=== PATIENT | male | born 1945 | race Caucasian/White ===

== ENCOUNTER 2023-08-19 10:34 | Emergency (ER) | payer OTHER ==
[~2023-08-19] VITALS: Ht 170.2 cm; Wt 66.6 kg
[2023-08-19 12:11] VITALS: BP 138/75; PULSE 69; RESP 18; TEMP 98.1; O2SAT 99
[2023-08-19 14:01] LABS: Mean Corpuscular Volume 103.5 fL (80.0-100.0)
[2023-08-19 14:04] LABS: Hematocrit 43.4 % (41.0-53.0); Hemoglobin 14.6 g/dL (13.5-17.5); Mean Corpuscular Hgb Conc. 33.8 g/dL (32.0-36.0); Red Blood Cells 4.19 10^6/uL (4.5-5.90); Red Cell Distribution Width 13.7 % (11.8-14.3); White Blood Cell 8.4 10^3/uL (4.4-10.8)
[2023-08-19 14:15] LABS: Band Neutrophils % (manual) 0; Basophils % (manual) 0 (0.0-2.0); Blast Cells 0; Metamyelocytes % 0; Myelocytes % 0; Promyelocytes % 0; Reactive Lymphocytes 0
[2023-08-19 14:21] LABS: INR 0.99 (0.9-1.15); Prothrombin Time 10.4 sec (9.3-11.8)
[2023-08-19 14:37] LABS: Alanine Aminotransferase 26 U/L (7-40); Alkaline Phosphatase 118 U/L (46-116); Anion Gap 5 (5-15); BUN/Creatinine Ratio 8.7 (10.0-20.0); Blood Urea Nitrogen 9 mg/dL (9-23); Calcium 9.5 mg/dL (8.7-10.4); Carbon Dioxide 26 mmol/L (20-30); Chloride 107 mmol/L (98-107); Glucose 106 mg/dL (74-106); Potassium 3.9 mmol/L (3.5-5.1); Sodium 138 mmol/L (136-145)
[2023-08-19 14:38] LABS: Albumin 4.3 g/dL (3.2-4.8); Aspartate Aminotransferase 22 U/L (13-40); Bilirubin, Total 0.5 mg/dL (0.2-1.0); Total Protein 7.5 g/dL (5.7-8.2)
[2023-08-19 14:42] LABS: Eosinophils % (manual) 21 (0-7); Lymphocytes % (manual) 9 (10.0-50.0); Monocytes % (manual) 3 (0-12); Platelet Estimate Adequate
[2023-08-19] MEDS ORDERED: CLOB0.05 TOP (14:59)
[2023-08-19] MEDS ORDERED: METH4PAK PO (14:59)
[2023-08-19] MEDS ORDERED: HYDR25CA PO (14:59)
[2023-08-19] MEDS ORDERED: [UNRECOGNIZED DRUG - CODE] PO (14:59)
== END 2023-08-19 15:18 | disposition home or self-care (01) ==
LOC: ER 10:34
DX: L41.1 Pityriasis lichenoides chronica (principal); Z79.01 Long term (current) use of anticoagulants
CPT/HCPCS: 36415; 80053; 85007; 85027; 85610

== ENCOUNTER 2024-04-10 16:04 | Emergency (ER) | payer OTHER ==
[~2024-04-10] VITALS: Ht 167.6 cm; Wt 73.0 kg
[~2024-04-10 16:04] MED LIST: CLOB0.05 TOP; HYDR25CA PO; METH4PAK PO; [UNRECOGNIZED DRUG - CODE] PO
[2024-04-10] MEDS ORDERED: PER60TP TOP (16:30)
[2024-04-10 16:47] VITALS: BP 148/78; PULSE 88; RESP 17; TEMP 98.7; O2SAT 97
== END 2024-04-10 16:51 | disposition home or self-care (01) ==
LOC: ER 16:04
DX: B86 Scabies (principal); R21 Rash and other nonspecific skin eruption

== ENCOUNTER 2024-10-18 09:00 | Emergency (ER) | payer OTHER ==
[~2024-10-18 09:00] MED LIST changes: +PER60TP TOP
[2024-10-18 09:22] VITALS: BP 130/79; PULSE 114; RESP 20; TEMP 98.1; O2SAT 97
--- NOTE | 2024-10-18 09:30 | ED.PDOC ---
History of Present Illness(SKN HPI Comments A 79 YEAR OLD FEMALE PRESENTS TO THE ED WITH COMPLAINT OF RASH. PATIENT STATES HE HAS BEEN EXPERIENCING A GENERALIZED BODY RASH FOR THE PAST 1 WEEK. PATIENT NOTES THIS RASH HAS BEEN ITCHY. PATIENT DENIES FEVER, CHILLS, SHORTNESS OF BREATH, CHEST PAIN, ABDOMINAL PAIN, NAUSEA, VOMITING, HEADACHE, OR OTHER CO MPLAINTS. NO OTHER SYMPTOMS OR MODIFYING FACTORS AT THIS TIME. PATIENT IS ALERT, ORIENTED X 4, AND HAS STEADY GAIT. Chief Complaint: Rash Time Seen by MD: 09:15 Primary Care Provider: NONE History of Present Illness: Nurses Notes, Medications, Allergies Allergies: Coded Allergies: NO KNOWN ALLERGIES (Unverified , 08/19/23) Home Meds Active Scripts Triamcinolone Acetonide (Triamcinolone Acetonide) 0.025 % Cre, 1 APPLIC TOP BID, #80 GRAMS Prov:OMER TERRELL 10/18/24 Hydroxyzine Pamoate (Vistaril) 25 Mg Cap, 1 CAP PO TID, #30 CAP Prov:OMER TERRELL 10/18/24 Prednisone (Prednisone) 20 Mg Tab, 60 MG PO DAILY, #24 MG Prov:OMER TERRELL 10/18/24 Cephalexin Monohydrate (Cephalexin) 500 Mg Cap, 1 CAP PO QID, #40 CAP Prov:OMER TERRELL 10/18/24 Permethrin (Elimite) 5 % Cre, 1 APPLIC TOP ONCE, #60 GRAMS 1 Refill Apply medication as directed Prov:JOHANELLAMIRANDA Menchaca REMOVABLE PROSTHODONTIST 04/10/24 Hydroxyzine Pamoate (Vistaril) 25 Mg Cap, 1 CAP PO TID, #30 CAP Prov:OMER TERRELL 08/19/23 Erythromycin Base (Erythromycin Base) 500 Mg Tab, 1 TAB PO TID, #30 TAB Prov:OMER TERRELL 08/19/23 Methylprednisolone (Medrol Dosepak) 4 Mg Krzysztof, 4 MG PO UD, #21 TAB UAD Prov:OMER TERRELL 08/19/23 Clobetasol Propionate (Clobetasol Propionate) 0.05 % Oin, 1 APPLIC TOP BID, #60 GRAMS Prov:OMER TERRELL 08/19/23 Information Source: Patient Mode of Arrival: Ambulatory Severity: Moderate Timing: Days Duration: Since onset, Days Prehospital treatment: None Location: Generalized Mechanism: Spontaneous Onset Developed: Pruritus, Rash Occurence: Indoors Object: None Condition of Object: None Retained Foreign Body: No Wound Type: None Immunization Status of Animal: NA Tetanus: Unknown History of: None Associated Signs and Symptoms: Redness Past Medical History PAST MEDICAL HISTORY: Denies Surgical History: Denies all surgeries Family History Family History: Reviewed,noncontributory to illness Social History Smoker: Non-Smoker Alcohol: Denies ETOH Use Drugs: Denies Drug Use Lives In: Home Constitutional: denies: chills, diaphoresis, fatigue, fever, malaise, sweats, weakness, others EENTM: denies: blurred vision, double vision, ear bleeding, ear discharge, ear drainage, ear pain, ear ringing, eye pain, eye redness, hearing loss, mouth pain, mouth swelling, nasal discharge, nose bleeding, nose congestion, nose pain, photophobia, tearing, throat pain, throat swelling, voice changes, others Respiratory: denies: cough, hemoptysis, orthopnea, SOB at rest, shortness of breath, SOB with excertion, stridor, wheezing, others Cardiovascular: denies: chest pain, dizzy spells, diaphoresis, Dyspnea on exertion, edema, irregular heart beat, left arm pain, lightheadedness, palpitations, PND, syncope, others Gastrointestinal: denies: abdomen distended, abdominal pain, blood streaked bowels, constipated, diarrhea, dysphagia, difficulty swallowing, hematemesis, melena, nausea, poor appetite, poor fluid intake, rectal bleeding, rectal pain, vomiting, others Genitourinary: denies: burning, dysuria, flank pain, frequency, hematuria, incontinence, penile discharge, penile sore, pain, testicle pain, testicle swelling, urgency, others Neurological: denies: dizziness, fainting, headache, left sided numbness, left sided weakness, numbness, paresthesia, pre-existing deficit, right sided numbness, right sided weakness, seizure, speech problems, tingling, tremors, weakness, others Musculoskeletal: denies: back pain, gout, joint pain, joint swelling, muscle pain, muscle stiffness, neck pain, others Integumetry: reports: rash; denies: bruises, change in color, change in hair/nails, dryness, laceration, lesions, lumps, wounds, others Allergic/Immunocompromised: reports: Hives, Itching; denies: Difficulty Healing, Frequent Infections, others Hematologic/Lymphatic: denies: anemia, blood clots, easy bleeding, easy bruising, swollen glands, others Endocrine: denies: excessive hunger, excessive sweating, excessive thirst, excessive urination, flushing, intolerance to cold, intolerance to heat, unexplained weight gain, unexplained weight loss, others Psychiatric: denies: anxiety, bipolar disorder, depression, hopeless, panic disorder, schizophrenia, sleepless, suicidal, others All Other Systems: Reviewed and Negative Physical Exam General Appearance: No Apparent Distress, Normal HEENT: Normal ENT Inspection, PERRL/EOMI, Pharynx Normal, TMs Normal Neck: Full Range of Motion, Non-Tender, Normal, Normal Inspection Respiratory: Chest Non-Tender, Lungs Clear, No Accessory Muscle Use, No Respiratory Distress, Normal Breath Sounds Cardiovascular: No Edema, No JVD, No Murmur, No Gallop, Normal Peripheral Pulses, Regular Rate/Rhythm Breast Exam: Deferred Gastrointestinal: No Organomegaly, Non Tender, No Pulsatile Mass, Normal Bowel Sounds, Soft Genitalia: Deferred Pelvic: Deferred Rectal: Deferred Extremities: No calf tenderness, Normal capillary refill, Normal inspection, Normal range of motion, Non-tender, No pedal edema Musculoskeletal : Apperance: Normal Neurologic: Alert, records management manager II-XII nml as Tested, No Motor Deficits, Normal Affect, Normal Mood, No Sensory Deficits Cerebellar Function: Normal Reflexes: Normal Skin: Dry, Rash (ERYTHEMA SKIN RASH WITH HIVES ON BACK AND LOWER LEGS, ERYTHEMA VESICLE SKIN RASH ON BILATERAL UPPER EXTREMITY, NO TENDERNESS AND SWELLING. ), Warm Peripheral Pulses: 2+ carotid (R), 2+ carotid (L), 2+ Radial (R), 2+ Radial (L) Lymphatic: No Adenopathy Was a procedure done? Was a procedure done?: No Differential Diagnosis (INTG) Differential Diagnosis: N/A Differential Diagnosis: Atopic dermatitis, Contact Dermatitis, Impetigo, Intertrigo, Scabies, Tinea, Urticaria, Other (ALLERGIC REACTION) Differential Diagnosis: N/A Abscess: N/A Differential Diagnosis: N/A X-Ray, Labs, Meds, VS Vital Signs Date Time Temp Pulse Resp B/P (MAP) Pulse Ox O2 Delivery O2 Flow Rate FiO2 10/18/24 09:22 114 20 97 Room Air 10/18/24 09:22 98.1 114 20 130/79 (96) 97 98.1 10/18/24 09:14 113 20 130/79 (96) 97 Current Medications Medications (Trade) Dose Ordered Sig/Stefan Route Start Time Stop Time Status Last Admin Epinephrine HCl 0.3 mg ONCE ONCE SC 10/18/24 09:30 10/18/24 09:31 DC 10/18/24 09:34 Methylprednisolone Sodium Succinate (Solu Medrol) 125 mg ONCE ONCE IM 10/18/24 09:30 10/18/24 09:31 DC 10/18/24 09:34 X-Ray, Labs, Meds, VS Comment EXTERNAL MEDICAL RECORDS REVIEWED: [NONE] INDEPENDENT HISTORIANS: [NONE] SOCIAL DETERMINANTS OF HEALTH: [NONE] LABS ORDERED: NONE REVIEWED AND INTERPRETED RESULTS: NONE IMAGING ORDERED: NONE TREATMENTS ORDERED: EPINEPHRINE 0.3 MG IM, SOLU-MEDROL 125 MG IM PROCEDURES PERFORMED: NONE CRITICAL CARE TIME: NONE I HAVE DISCUSSED THE PATIENT WITH THE ATTENDING PHYSICIAN DR. BIRCH AND HE AGREES WITH THE PATIENT'S PLAN OF CARE AND DISPOSITION. BASED ON HISTORY OF PRESENT ILLNESS, AND PHYSICAL EXAM, PATIENT WILL BE DISCHARGED HOME. DISCUSSED PLAN FOR DISCHARGE HOME WITH RX [VISTARIL 50MG, PREDNISONE, AND KEFLEX]. MEDICATION WARNINGS GIVEN. SHARED DECISION MAKING: PATIENT INSTRUCTED TO FOLLOW UP WITH PRIMARY CARE PROVIDER IN 1-2 DAYS FOR RE-EVALUATION OF SYMPTOMS. PATIENT VERBALIZES UNDERSTANDING TO RETURN TO ED FOR NEW OR WORSENING SYMPTOMS OR IF FOLLOW UP WITH PCP CANNOT BE OBTAINED. PATIENT FEELS COMFORTABLE GOING HOME AT THIS TIME. ALL QUESTIONS ADDRESSED AT TIME OF DISCHARGE. Time of 1ST Reevaluation: 10:12 Reevaluation 1ST: Improved Patient Education/Counseling: Diagnosis, Treatment, Need For Follow Up Family Education/Counseling: Diagnosis, Treatment, Need For Follow Up Medical Screening: No EMC Exist At This Time Departure 1 Departure Time of Disposition: 10:12 Impression: Primary Impression: Allergic reaction Qualified Codes: T78.40XA - Allergy, unspecified, initial encounter Additional Impression: Allergic contact dermatitis Qualified Codes: L23.9 - Allergic contact dermatitis, unspecified cause Disposition: HOME / SELF CARE / HOMELESS Condition: Stable Additional Instructions: FOLLOW-UP WITH PCP IN 1 TO 2 DAYS FOR REFERRAL TO [facility]. TAKE MEDICATIONS PRESCRIBED. RETURN TO ED FOR ANY NEW OR WORSENING SYMPTOMS. e-Prescriptions Triamcinolone Acetonide (Triamcinolone Acetonide) 0.025 % Cre 1 APPLIC TOP BID, #80 GRAMS Prov: OMER TERRELL 10/18/24 Hydroxyzine Pamoate (Vistaril) 25 Mg Cap 1 CAP PO TID, #30 CAP Prov: OMER TERRELL 10/18/24 Prednisone (Prednisone) 20 Mg Tab 60 MG PO DAILY, #24 MG Prov: OMER TERRELL 10/18/24 Cephalexin Monohydrate (Cephalexin) 500 Mg Cap 1 CAP PO QID, #40 CAP Prov: OMER TERRELL 10/18/24 Discharged With: Self Critical Care Note Critical Care Time?: No Stability Stability form required: No I personally scribed for OMER TERRELL ([email or web address]) on 10/18/24 at 09:30. Electronically submitted by Calderon Nickerson ([email or web address]). OMER TERRELL Oct 18, 2024 09:30
[2024-10-18] MEDS: EPINEPHrine HCL 1 MG/1 ML AMP SC ONE (09:34)
[2024-10-18] MEDS: methylPREDNISolone SOD SUCC 125 MG/2 ML VL IM ONE (09:34)
[2024-10-18] MEDS ORDERED: TRIA0.02 TOP (10:12)
[2024-10-18] MEDS ORDERED: PRED20TA2 PO (10:12)
[2024-10-18] MEDS ORDERED: CEPH500C PO (10:12)
== END 2024-10-18 10:13 | disposition home or self-care (01) ==
LOC: ER 09:00
DX: L23.9 Allergic contact dermatitis, unspecified cause (principal); Z79.52 Long term (current) use of systemic steroids; Z79.899 Other long term (current) drug therapy
CPT/HCPCS: 96372; 99284; J0171; J2919

== ENCOUNTER 2025-01-01 13:51 | Inpatient (IN) | payer OTHER ==
[~2025-01-01] VITALS: Ht 170.2 cm; Wt 71.3 kg
[~2025-01-01 13:51] MED LIST changes: +CEPH500C PO; +PRED20TA2 PO; +TRIA0.02 TOP
--- NOTE | 2025-01-01 14:33 | ED.PDOC ---
History of Present Illness HPI Comments 79-year-old male with no reported PMHx presents with a chief complaint of SOB x onset 1.5 years. Patient states that he has had SOB for the past almost 2 years, but states that it is worsening over the last 2 days. Patient denies wearing oxygen at home, but states that he would like to leave with a lightweight oxygen machine. Patient is sating at 96% on room air. Chief Complaint: Shortness of Breath Time Seen by MD: 14:18 Primary Care Provider: NONE Reviewed Notes: Medications, Allergies Allergies: Coded Allergies: NO KNOWN ALLERGIES (Unverified , 08/19/23) Home Meds Active Scripts Triamcinolone Acetonide (Triamcinolone Acetonide) 0.025 % Cre, 1 APPLIC TOP BID, #80 GRAMS Prov:OMER TERRELL 10/18/24 Hydroxyzine Pamoate (Vistaril) 25 Mg Cap, 1 CAP PO TID, #30 CAP Prov:OMER TERRELL 10/18/24 Prednisone (Prednisone) 20 Mg Tab, 60 MG PO DAILY, #24 MG Prov:OMER TERRELL 10/18/24 Cephalexin Monohydrate (Cephalexin) 500 Mg Cap, 1 CAP PO QID, #40 CAP Prov:OMER TERRELL 10/18/24 Permethrin (Elimite) 5 % Cre, 1 APPLIC TOP ONCE, #60 GRAMS 1 Refill Apply medication as directed Prov:SUKHDEV PRADO MARKETING PRODUCTION SPECIALIST 04/10/24 Hydroxyzine Pamoate (Vistaril) 25 Mg Cap, 1 CAP PO TID, #30 CAP Prov:OMER TERRELL 08/19/23 Erythromycin Base (Erythromycin Base) 500 Mg Tab, 1 TAB PO TID, #30 TAB Prov:OMER TERRELL 08/19/23 Methylprednisolone (Medrol Dosepak) 4 Mg Krzysztof, 4 MG PO UD, #21 TAB UAD Prov:OMER TERRELL 08/19/23 Clobetasol Propionate (Clobetasol Propionate) 0.05 % Oin, 1 APPLIC TOP BID, #60 GRAMS Prov:OMER TERRELL 08/19/23 Information Source: Patient Mode of Arrival: Wheelchair Severity: Moderate Timing: Months Duration: Intermittent Prehospital treatment: None Past Medical History PAST MEDICAL HISTORY: Denies Surgical History: Denies all surgeries Family History Family History: Reviewed,noncontributory to illness Social History Smoker: Non-Smoker Alcohol: Denies ETOH Use Drugs: Denies Drug Use Lives In: Home Constitutional: denies: chills, diaphoresis, fatigue, fever, malaise, sweats, weakness, others EENTM: denies: blurred vision, double vision, ear bleeding, ear discharge, ear drainage, ear pain, ear ringing, eye pain, eye redness, hearing loss, mouth pain, mouth swelling, nasal discharge, nose bleeding, nose congestion, nose pain, photophobia, tearing, throat pain, throat swelling, voice changes, others Respiratory: reports: shortness of breath; denies: cough, hemoptysis, orthopnea, SOB at rest, SOB with excertion, stridor, wheezing, others Cardiovascular: denies: chest pain, dizzy spells, diaphoresis, Dyspnea on exertion, edema, irregular heart beat, left arm pain, lightheadedness, palpi tations, PND, syncope, others Gastrointestinal: denies: abdomen distended, abdominal pain, blood streaked bowels, constipated, diarrhea, dysphagia, difficulty swallowing, hematemesis, melena, nausea, poor appetite, poor fluid intake, rectal bleeding, rectal pain, vomiting, others Genitourinary: denies: burning, dysuria, flank pain, frequency, hematuria, incontinence, penile discharge, penile sore, pain, testicle pain, testicle swelling, urgency, others Neurological: denies: dizziness, fainting, headache, left sided numbness, left sided weakness, numbness, paresthesia, pre-existing deficit, right sided numbness, right sided weakness, seizure, speech problems, tingling, tremors, weakness, others Musculoskeletal: denies: back pain, gout, joint pain, joint swelling, muscle pain, muscle stiffness, neck pain, others Integumetry: denies: bruises, change in color, change in hair/nails, dryness, laceration, lesions, lumps, rash, wounds, others Allergic/Immunocompromised: denies: Difficulty Healing, Frequent Infections, Hives, Itching, others Hematologic/Lymphatic: denies: anemia, blood clots, easy bleeding, easy bruis ing, swollen glands, others Endocrine: denies: excessive hunger, excessive sweating, excessive thirst, exc essive urination, flushing, intolerance to cold, intolerance to heat, unexplained weight gain, unexplained weight loss, others Psychiatric: denies: anxiety, bipolar disorder, depression, hopeless, panic disorder, schizophrenia, sleepless, suicidal, others All Other Systems: Reviewed and Negative Physical Exam General Appearance: No Apparent Distress, Normal HEENT: Normal ENT Inspection, Pharynx Normal, TMs Normal Neck: Full Range of Motion, Non-Tender, Normal, Normal Inspection Respiratory: Chest Non-Tender, Lungs Clear, No Accessory Muscle Use, No Respiratory Distress, Normal Breath Sounds Cardiovascular: No Edema, No JVD, No Murmur, No Gallop, Normal Peripheral Pulses, Regular Rate/Rhythm Breast Exam: Deferred Gastrointestinal: No Organomegaly, Non Tender, No Pulsatile Mass, Normal Bowel Sounds, Soft Genitalia: Deferred Pelvic: Deferred Rectal: Deferred Extremities: No calf tenderness, Normal capillary refill, Normal inspection, Normal range of motion, Non-tender, No pedal edema Musculoskeletal : Apperance: Normal Neurologic: Alert, favor maker II-XII nml as Tested, No Motor Deficits, Normal Affect, Normal Mood, No Sensory Deficits Cerebellar Function: Normal Reflexes: Normal Skin: Dry, Normal Color, Warm Lymphatic: No Adenopathy Was a procedure done? Was a procedure done?: No Differential Dx Considerations may include: Acute chest pain, CHF, COPD, viral syndrome, pneumonia, electrolyte abdomen X-Ray, Labs, Meds, VS Vital Signs Date Time Temp Pulse Resp B/P (MAP) Pulse Ox O2 Delivery O2 Flow Rate FiO2 01/01/25 15:29 98.5 61 20 144/82 (102) 95 98.5 01/01/25 15:29 61 20 95 Room Air* 0 21 01/01/25 14:14 75 01/01/25 14:14 97.7 60 16 116/59 (78) 96 01/01/25 14:13 16 Room Air* 0 21 Lab Test 01/01/25 15:35 01/01/25 14:20 Range/Units Troponin I High Sensitivity 9 9 </=54 ng/L White Blood Count 8.2 4.4-10.8 10^3/uL Red Blood Count 3.58 L 4.5-5.90 10^6/uL Hemoglobin 13.2 L 13.5-17.5 g/dL Hematocrit 37.7 L 41.0-53.0 % Mean Corpuscular Volume 105.3 H 80.0-100.0 fL Mean Corpuscular Hemoglobin 36.9 H 28.0-32.0 pg Mean Corpuscular Hemoglobin Concent 35.0 32.0-36.0 g/dL Red Cell Distribution Width 17.3 H 11.8-14.3 % Platelet Count 207 140-450 10^3/uL Mean Platelet Volume 8.2 6.9-10.8 fL Neutrophils (%) (Auto) 72.7 37.0-80.0 % Lymphocytes (%) (Auto) 12.4 10.0-50.0 % Monocytes (%) (Auto) 10.8 0.0-12.0 % Eosinophils (%) (Auto) 3.6 0.0-7.0 % Basophils (%) (Auto) 0.5 0.0-2.0 % Neutrophils # (Auto) 5.9 1.6-8.6 10 ^3/uL Lymphocytes # (Auto) 1.0 0.4-5.4 10 ^3/uL Monocytes # (Auto) 0.9 0-1.3 10 ^3/uL Eosinophils # (Auto) 0.3 0-0.8 10 ^3/uL Basophils # (Auto) 0 0-0.2 10 ^3/uL Nucleated Red Blood Cells 0.0 % Sodium Level 136 136-145 mmol/L Potassium Level 2.6 L 3.5-5.1 mmol/L Chloride Level 95 L 98-107 mmol/L Carbon Dioxide Level 31 20-31 mmol/L Anion Gap 10 5-15 Blood Urea Nitrogen 26 H 9-23 mg/dL Creatinine 1.59 H 0.700-1.30 mg/dL Glomerular Filtration Rate Calc 44 >90 mL/min BUN/Creatinine Ratio 16.4 10.0-20.0 Serum Glucose 98 74-106 mg/dL Calcium Level 8.6 L 8.7-10.4 mg/dL B-Type Natriuretic Peptide 116.57 0-100 pg/mL Time of 1ST Reevaluation: 14:48 Reevaluation 1ST: Unchanged Patient Education/Counseling: Diagnosis, Treatment, Prognosis Family Education/Counseling: No Family Present Departure 1 Departure Time of Disposition: 16:33 (Patient presented with shortness of breath that was concerning for possible STEMI, ACS, PE, Pneumonia, Muscle Strain, COPD, heart failure, Dissection. Data: 1. I ordered and reviewed the result of at least 3 labs including a CBC, BMP, and Troponin. 2. I independently interpreted the fo llowing tests: EKG which shows sinus arrhythmia and Chest X-ray which shows benign chest.Risk:This patient has a high risk of morbidity due to further diagnostic testing or treatment and may suffer from an acute cardiac or respiratory disorder. Workup reveals _ concern for ACS versus COPD versus heart failure and patient should be admitted for further workup and possible expert consultation. ) Impression: Primary Impression: Shortness of breath Additional Impression: Generalized weakness Disposition: ADMITTED INPATIENT Admit to: Med Surg Condition: Serious Critical Care Note Critical Care Time?: No Stability Stability form required: No I personally scribed for AYANA MOTA MD ([email or web address]) on 01/01/25 at 14:32. Electronically submitted by Cy Redman ([email or web address]). AYANA MOTA MD Jan 01, 2025 14:32
[2025-01-01 14:48] LABS: Basophils # (auto) 0 10 ^3/uL (0-0.2); Eosinophils # (auto) 0.3 10 ^3/uL (0-0.8); Hemoglobin 13.2 g/dL (13.5-17.5); Neutrophils % (auto) 72.7 % (37.0-80.0)
--- NOTE | 2025-01-01 14:48 | DVH ---
CHEST RADIOGRAPH Indication: sob Technique: Single frontal view of the chest was obtained COMPARISON: None FINDINGS: Lines and Tubes: None Lungs: Clear. Pleura: No effusion. No pneumothorax. Cardiomediastinal contours: Unremarkable Bones: Chronic appearing bilateral rib fractures. IMPRESSION: No acute disease.
[2025-01-01 14:50] LABS: Basophils % (auto) 0.5 % (0.0-2.0); Eosinophils % (auto) 3.6 % (0.0-7.0); Hematocrit 37.7 % (41.0-53.0); Lymphocytes % (auto) 12.4 % (10.0-50.0); Mean Corpuscular Hemoglobin 36.9 pg (28.0-32.0); Mean Corpuscular Volume 105.3 fL (80.0-100.0); Monocytes # (auto) 0.9 10 ^3/uL (0-1.3); Monocytes % (auto) 10.8 % (0.0-12.0); Neutrophils # (auto) 5.9 10 ^3/uL (1.6-8.6); Platelet Count (auto) 207 10^3/uL (140-450); Red Blood Cells 3.58 10^6/uL (4.5-5.90); Red Cell Distribution Width 17.3 % (11.8-14.3); White Blood Cell 8.2 10^3/uL (4.4-10.8)
[2025-01-01 15:00] LABS: Anion Gap 10 (5-15); Carbon Dioxide 31 mmol/L (20-31)
[2025-01-01 15:02] LABS: Calcium 8.6 mg/dL (8.7-10.4); Chloride 95 mmol/L (98-107); Potassium 2.6 mmol/L (3.5-5.1); Sodium 136 mmol/L (136-145)
[2025-01-01 15:05] LABS: Glucose 98 mg/dL (74-106)
[2025-01-01 15:06] LABS: BUN/Creatinine Ratio 16.4 (10.0-20.0)
[2025-01-01 15:07] LABS: Blood Urea Nitrogen 26 mg/dL (9-23)
[2025-01-01 15:29] VITALS: PULSE 61; RESP 20; O2SAT 95
[2025-01-01] MEDS ORDERED: ONDANSETRON HCL 4 MG/2 ML VIAL IV PRN (17:45)
[2025-01-01] MEDS ORDERED: DOCUSATE SOD 100 MG CAP PO PRN (17:45)
[2025-01-01] MEDS ORDERED: ACETAMINOPHEN 325 MG TAB PO PRN (17:45)
[2025-01-01] MEDS ORDERED: HYDROcodone-ACET 5/325MG TAB PO PRN (17:45)
[2025-01-01 18:02] VITALS: O2SAT 96
[2025-01-01] MEDS: POTASSIUM CHL 20 Meq TABLET PO ONE ×2 (18:05→21:09)
[2025-01-01] MEDS ORDERED: MORPHINE SULFATE INJ 2 MG/ml SYRG IV PRN (19:00)
[2025-01-01] MEDS ORDERED: NITROGLYCERIN 0.4 MG SL TAB SL PRN (19:00)
--- NOTE | 2025-01-01 19:19 | DVHHP2 ---
History of Present Illness Reason for Visit: Shortness of breath History of Present Illness The patient is a 79-year-old male who denies past medical history presented to [facility] ED with complaint of shortness of breaths for the past 1.5 years. Patient reports symptoms intermittently progressively get worse with generalized weakness, increased work of breathing for the past 2 days, getting worse today that prompted this visit. Patient was seen and evaluated in the ED, laboratory data shows WBC 8.2, platelets 207, sodium 136, potassium 2.6, BUN 26, creatinine 1.59, GFR 44, glucose 98, calcium 8.6, troponin 9, BNP 116.57. Chest x-ray show no acute disease. Patient was given breathing treatment, potassium 40 mEq p.o. x1, please see medication orders section in the computer. On my assessment, patient denied chest pain, no headache, no dizziness, no diaphoresis, no abdominal pain, no diarrhea, no nausea, no vomiting, no fever, no chills. Patient was admitted for further evaluation and medical management. Past Medical History Denies past medical history Past Surgical History Denies all surgeries Family History Reviewed, noncontributory to the management of this case. Past Social History The patient lives at home, denies smoking, alcohol or illicit drugs abuse. Review of Systems Constitutional: No: Fever, Chills, Sweats, Weakness, Malaise, Other Eyes: No: Pain, Vision change, Conjunctivae inflammation, Eyelid inflammation, Other, Redness ENT: No: Ear pain, Ear discharge, Nose pain, Nose discharge, Nose congestion, Mouth pain, Mouth swelling, Throat pain, Throat swelling, Other Respiratory: Shortness of breath; No: Cough, Dry, SOB with excertion, Wheezing, Hemoptysis, Pleuritic Pain, Sputum, Wheezing, Other Cardiovascular: No: Chest Pain, Palpitations, Orthopnea, Paroxysmal Noc. Dyspnea, Edema, Lt Headedness, Other Gastrointestinal: No: Nausea, Vomiting, Abdominal Pain, Diarrhea, Constipation, Melena, Hematochezia, Other Genitourinary: No Dysuria, No Frequency, No Incontinence, No Hematuria, No Retention, No Other Musculoskeletal: No: other, neck pain, shoulder pain, arm pain, back pain, hand pain, leg pain, foot pain Skin: No: Rash, Lesions, Jaundice, Bruising, Other Neurological: No: Weakness, Numbness, Incoordination, Change in speech, Confusion, Seizures, Other Allergies: Coded Allergies: NO KNOWN ALLERGIES (Unverified , 08/19/23) Medications Current Medications Medications Dose Ordered Sig/Stefan Route Start Time Stop Time Status Last Admin Dose Admin Albuterol 2.5 mg Q4HPRN PRN NEB 01/01/25 17:45 Ipratropium [place] 0.5 mg Q4HPRN PRN NEB 01/01/25 17:45 Sodium Chloride 10 ml Q8HR IV 01/01/25 22:00 Acetaminophen/ Hydrocodone Bitart 1 tab Q4HP PRN PO 01/01/25 17:45 Ondansetron HCl 4 mg Q4HP PRN IV 01/01/25 17:45 Docusate Sodium 100 mg BIDPRN PRN PO 01/01/25 17:45 Acetaminophen 650 mg Q6HP PRN PO 01/01/25 17:45 Exam Vital Signs Vital Signs Date Time Temp Pulse Resp B/P (MAP) Pulse Ox O2 Delivery O2 Flow Rate FiO2 01/01/25 18:02 96 Room Air* 0 21 01/01/25 17:31 70 18 01/01/25 17:31 97.7 136/80 (98) 97.7 General Appearance: Alert, Oriented X3, Cooperative, No acute distress HEENT: Atraumatic, PERRLA, EOMI, Mucous membr. moist/pink Respiratory: Clear to auscultation, Normal air movement Cardiovascular: Regular rate, Normal S1, Normal S2, No murmurs Abdominal: Normal bowel sounds, Soft, No tenderness, No hepatospenomegaly, No masses Extremities: No clubbing, No cyanosis, No edema, Normal pulses, No tenderness/swelling Skin: No rashes, No breakdown, No significant lesion Neuro: Normal speech, Normal tone, Sensation intact, Cranial nerves 3-12 NL, Reflexes 2+ Psych/Mental Status: Mental status NL, Mood NL Labs/Xrays Labs Test 01/01/25 17:47 01/01/25 14:20 Range/Units Troponin I High Sensitivity 9 </=54 ng/L White Blood Count 8.2 4.4-10.8 10^3/uL Red Blood Count 3.58 L 4.5-5.90 10^6/uL Hemoglobin 13.2 L 13.5-17.5 g/dL Hematocrit 37.7 L 41.0-53.0 % Mean Corpuscular Volume 105.3 H 80.0-100.0 fL Mean Corpuscular Hemoglobin 36.9 H 28.0-32.0 pg Mean Corpuscular Hemoglobin Concent 35.0 32.0-36.0 g/dL Red Cell Distribution Width 17.3 H 11.8-14.3 % Platelet Count 207 140-450 10^3/uL Mean Platelet Volume 8.2 6.9-10.8 fL Neutrophils (%) (Auto) 72.7 37.0-80.0 % Lymphocytes (%) (Auto) 12.4 10.0-50.0 % Monocytes (%) (Auto) 10.8 0.0-12.0 % Eosinophils (%) (Auto) 3.6 0.0-7.0 % Basophils (%) (Auto) 0.5 0.0-2.0 % Neutrophils # (Auto) 5.9 1.6-8.6 10 ^3/uL Lymphocytes # (Auto) 1.0 0.4-5.4 10 ^3/uL Monocytes # (Auto) 0.9 0-1.3 10 ^3/uL Eosinophils # (Auto) 0.3 0-0.8 10 ^3/uL Basophils # (Auto) 0 0-0.2 10 ^3/uL Nucleated Red Blood Cells 0.0 % Sodium Level 136 136-145 mmol/L Potassium Level 2.6 L 3.5-5.1 mmol/L Chloride Level 95 L 98-107 mmol/L Carbon Dioxide Level 31 20-31 mmol/L Anion Gap 10 5-15 Blood Urea Nitrogen 26 H 9-23 mg/dL Creatinine 1.59 H 0.700-1.30 mg/dL Glomerular Filtration Rate Calc 44 >90 mL/min BUN/Creatinine Ratio 16.4 10.0-20.0 Serum Glucose 98 74-106 mg/dL Calcium Level 8.6 L 8.7-10.4 mg/dL B-Type Natriuretic Peptide 116.57 0-100 pg/mL PATIENT: HARMAN RAMON ACCT: [id number] UNIT: [id number] : 1945 LOC: ER ROOM / BED: / AGE / SEX: 79 / M ADM STATUS: REG ER SERVICE 1413 ORDERING PHYSICIAN: AYANA MOTA MD PROCEDURE(s): CXRP - CHEST PORTABLE REASON: sob ORDER NUMBER(s): [id number], ACCESSION NUMBER(s): [id number] CHEST RADIOGRAPH Indication: sob Technique: Single frontal view of the chest was obtained COMPARISON: None FINDINGS: Lines and Tubes: None Lungs: Clear. Pleura: No effusion. No pneumothorax. Cardiomediastinal contours: Unremarkable Bones: Chronic appearing bilateral rib fractures. IMPRESSION: No acute disease. Assessment/Plan Assessment/Plan Shortness of breath Hypokalemia Acute renal injury Generalized weakness Plan 1. Admit to telemetry unit 2. Breathing treatment 3. Pain control management 4. Management of fluids and electrolytes 5. Consultation for hospitalist 6. Diagnostic tests chest x-ray 7. DVT prophylaxis-on SCDs 8. Repeat labs CBC, CMP in a.m. 9. Continue with current medical management 10. Treatment plan discussed with patient and RN. Patient verbalized understanding. Plan discussed with: Patient, Other (RN) My Orders Orders - IGNACIO HUMPHREY DNP Procedure Category Date Status Time *Dr. Zarate Group CONS 01/01/25 Transmitted -[place] 17:35 Albuterol Medneb PHA 01/01/25 In Process (Ventolin Medneb) 17:45 Ipratropium Medneb PHA 01/01/25 In Process (Atrovent Medneb) 17:45 Allergies CHAR 01/01/25 In Process 17:35 Code Status CODE 01/01/25 Transmitted 17:35 Sodium Chloride Lock PHA 01/01/25 In Process (Saline Lock Ns) 22:00 Oxygen Per Hour RT 01/01/25 Transmitted 17:35 Hydrocodone-Acet PHA 01/01/25 In Process 5/325mg Tab ([place] 17:45 Ondansetron Hcl PHA 01/01/25 In Process (Zofran) 17:45 Docusate Sodium PHA 01/01/25 In Process Capsule (Colace 17:45 Complete Blood Count LAB 01/02/25 Verified 04:00 Comprehensive LAB 01/02/25 Verified Metabolic Panel 04:00 Cardiac DIET 01/01/25 Transmitted Diet-2gna,Lofat,Lochol Dinner Condition: Serious CHAR 01/01/25 In Process 17:35 Acetaminophen Tablet PHA 01/01/25 In Process (Tylenol Tablet) 17:45 Bedrest With Bathroom CHAR 01/01/25 In Process Privileg 17:35 Sequential [facility] 01/01/25 In Process Compression Device Admit ADMIT 01/01/25 Verified 19:00 Nitroglycerin [facility] 01/01/25 Verified Sublingual (Ntrostat 19:00 Morphine Sulfate [facility] 01/01/25 Verified Injection 19:00 Notify Md Of Changes [facility] 01/01/25 Verified From Base 19:00 Traveling Construction Superintendent For [facility] 01/01/25 Verified 24 Hours 19:00 Emergency Dysrhythmia [facility] 01/01/25 Verified Protocol 19:00 Rhythm Strips Once [facility] 01/01/25 Verified Every Shift 19:00 Oxygen By Nasal RT 01/01/25 Verified Cannula 19:00 Problem List: (1) Shortness of breath (2) Hypokalemia (3) Acute renal injury (4) Generalized weakness Date of Service: Jan 01, 2025 Billing Provider: IGNACIO HUMPHREY DNP Common Visit Codes: [id number] INP/OBS CARE (HIGH) IGNACIO HUMPHREY DNP Jan 01, 2025 19:19
[2025-01-01 19:51] VITALS: BP 136/80; PULSE 62; RESP 16; TEMP 97.7; O2SAT 96
[2025-01-01] MEDS: SODIUM CHLOR 0.9% PF (SALINE LOCK) 10ML VIAL/SYR IV SCH (22:00)
[2025-01-02] VITALS (14 sets, daily range): BP systolic 110–126; BP diastolic 61–81; PULSE 71–82; RESP 16–20; TEMP 97.9–98.7; O2SAT 92–98
[2025-01-02] MEDS: TEMAZEPAM 15 MG CAP PO ONE ×2 (01:01→23:33)
[2025-01-02 07:30] LABS: Basophils # (auto) 0 10 ^3/uL (0-0.2); Basophils % (auto) 0.7 % (0.0-2.0); Eosinophils # (auto) 0.4 10 ^3/uL (0-0.8); Hematocrit 35.5 % (41.0-53.0); Hemoglobin 12.2 g/dL (13.5-17.5); Mean Corpuscular Hemoglobin 36.9 pg (28.0-32.0); Mean Corpuscular Hgb Conc. 34.3 g/dL (32.0-36.0); Mean Corpuscular Volume 107.5 fL (80.0-100.0); Monocytes # (auto) 0.7 10 ^3/uL (0-1.3); Monocytes % (auto) 12.9 % (0.0-12.0); Neutrophils # (auto) 3.6 10 ^3/uL (1.6-8.6); Neutrophils % (auto) 62.4 % (37.0-80.0); Nucleated Red Blood Cells % 0.1 %; Platelet Count (auto) 194 10^3/uL (140-450); Red Blood Cells 3.31 10^6/uL (4.5-5.90); Red Cell Distribution Width 17.6 % (11.8-14.3); White Blood Cell 5.8 10^3/uL (4.4-10.8)
[2025-01-02 07:46] LABS: Albumin 3.6 g/dL (3.2-4.8); Alkaline Phosphatase 84 U/L (46-116); Anion Gap 10 (5-15); BUN/Creatinine Ratio 16.6 (10.0-20.0); Carbon Dioxide 29 mmol/L (20-31)
[2025-01-02 07:52] LABS: Chloride 96 mmol/L (98-107); Sodium 135 mmol/L (136-145)
[2025-01-02 07:53] LABS: Alanine Aminotransferase 54 U/L (7-40); Aspartate Aminotransferase 70 U/L (13-40); Blood Urea Nitrogen 24 mg/dL (9-23); Calcium 8.1 mg/dL (8.7-10.4); Glucose 172 mg/dL (74-106); Total Protein 5.6 g/dL (5.7-8.2)
[2025-01-02] MEDS: IPRATROPIUM BROM 0.5 MG/2.5ML INH SOL NEB PRN (09:12)
[2025-01-02] MEDS: ALBUTEROL SULF 2.5 MG/0.5ML(0.5%) NEB SOLN NEB PRN (09:12)
[2025-01-02 10:24] LABS: Base Excess 4.6 mmol/L (-2.0-3.0)
[2025-01-02 10:37] LABS: COVID19 ANTIGEN SOFIA FIA NEGATIVE (NEGATIVE); Rapid Influenza A Negative (Negative); Rapid Influenza B Negative (Negative)
[2025-01-02] MEDS: MAGNESIUM SULFATE 1GM/100ML 100 ML IV SCH (10:57)
[2025-01-02] MEDS: POTASSIUM CHL 20 Meq TABLET PO ONE ×2 (11:08→16:51)
--- NOTE | 2025-01-02 11:20 | DVHINCON2 ---
Date of service: Jan 02, 2025 Referring Physician Johnson Winter NP Reason for Consultation Acute kidney injury History of Present Illness Patient is 79-year-old male with past medical history significant for COPD is admitted for worsening shortness of breath. On admission patient found to have elevated BUN creatinine with multiple electrolyte abnormalities nephrology is consulted for acute kidney injury Past Medical History COPD Past Surgical History Patient denies Allergies: Coded Allergies: NO KNOWN ALLERGIES (Unverified , 08/19/23) Home Meds Active Scripts Hydroxyzine Pamoate (Vistaril) 25 Mg Cap, 1 CAP PO TID, #30 CAP Prov:OMER TERRELL 10/18/24 Prednisone (Prednisone) 20 Mg Tab, 60 MG PO DAILY, #24 MG Prov:OMER TERRELL 10/18/24 Hydroxyzine Pamoate (Vistaril) 25 Mg Cap, 1 CAP PO TID, #30 CAP Prov:OMER TERRELL 08/19/23 Methylprednisolone (Medrol Dosepak) 4 Mg Krzysztof, 4 MG PO UD, #21 TAB UAD Prov:OMER TERRELL 08/19/23 Current Medications Current Medications Medications (Trade) Dose Ordered Sig/Stefan Route PRN Reason Start Time Stop Time Status Last Admin Albuterol (Ventolin Medneb) 2.5 mg Q4HPRN PRN NEB SHORTNESS OF BREATH 01/01/25 17:45 01/02/25 09:12 Ipratropium [place] (Atrovent Medneb) 0.5 mg Q4HPRN PRN NEB SHORTNESS OF BREATH 01/01/25 17:45 01/02/25 09:12 Sodium Chloride (Saline Lock Ns) 10 ml Q8HR IV 01/01/25 22:00 01/02/25 05:49 Acetaminophen/ Hydrocodone Bitart ([place] 5/325MG Tab) 1 tab Q4HP PRN PO MODERATE PAIN (4-6 PAIN SCALE) 01/01/25 17:45 Ondansetron HCl (Zofran) 4 mg Q4HP PRN IV NAUSEA / VOMITING 01/01/25 17:45 Docusate Sodium (Colace Capsule) 100 mg BIDPRN PRN PO FOR CONSTIPATION 01/01/25 17:45 Acetaminophen (Tylenol Tablet) 650 mg Q6HP PRN PO PAIN SCALE 1-3 OR TEMP>100.4 3/10/25 17:45 Nitroglycerin (Ntrostat Sublingual) 0.4 mg Q5MINP PRN SL FOR CHEST PAIN 01/01/25 19:00 Morphine Sulfate 2 mg Q30M PRN IV FOR CHEST PAIN 01/01/25 19:00 Magnesium Sulfate/ Dextrose 100 ml @ 100 mls/hr Q1HR IV 01/02/25 10:00 01/02/25 12:59 DC 01/02/25 12:19 Cholecalciferol (Vitamin D3 Tablet) 2,000 unit DAILY PO 01/03/25 10:00 UNV Cyanocobalamin (Vitamin B-12) 500 mcg DAILY PO 01/03/25 10:00 UNV Magnesium Oxide (Mag-Ox Tablet) 400 mg BID PO 01/02/25 22:00 UNV Multivitamins (Mvi Tab) 1 tab DAILY PO 01/03/25 10:00 UNV Folic Acid 1 mg DAILY PO 01/03/25 10:00 UNV Thiamine HCl 100 mg DAILY PO 01/03/25 10:00 UNV Family History: Patient reports no known family medical history. Review of Systems All 12 item review of systems reviewed with the patient nonsignificant except what is mentioned in the history of present illness H&P Exam Vital Signs/I&O Vital Sign Date Time Temp Pulse Resp B/P (MAP) Pulse Ox O2 Delivery O2 Flow Rate FiO2 01/02/25 13:00 98.7 74 16 114/79 (91) 92 98.7 01/02/25 09:16 Room Air* 0 21 Intake and Output 01/01/25 01/02/25 19:00 07:00 Intake Total 0 ml Balance 0 ml Intake Oral 0 ml # Voids 1 Physical Exam Patient is awake and alert Lungs clear to auscultation bilaterally Cardiac exam regular rate and rhythm GI soft nontender was normal Extremities no clubbing cyanosis or edema Neuro nonfocal Labs/Diagnostic Data Labs/Diagnostic Data Laboratory Tests Test 01/02/25 14:48 01/02/25 13:06 01/02/25 10:18 01/02/25 09:51 Range/Units Vitamin B12 Level 304 211-911 pg/mL Vitamin D 25-Hydroxy 18.7 L 30.0-100 ng/mL Folic Acid 5.73 >5.38 ng/mL Blood Gas Specimen Type Arterial Blood Gas Sample Site Right brachial Blood Gas Patient Temperature 37.0 Arterial Blood Date Drawn [id number] Arterial Blood pH 7.541 H 7.350-7.450 Arterial Blood Partial Pressure CO2 31.9 L 35.0-48.0 mmHg Arterial Blood Partial Pressure O2 77.4 L 83.0-108.0 mmHg Arterial Blood HCO3 26.7 21.0-28.0 mmol/L Arterial Blood Oxygen Saturation 95.2 94.0-98.0 % Arterial Blood Base Excess 4.6 H -2.0-3.0 mmol/L Arterial Blood Oxyhemoglobin 94.1 94.0-98.0 % Arterial Blood Carboxyhemoglobin 0.6 0.5-1.5 % Arterial Blood Methemoglobin 0.6 0.0-1.5 % Lam Test N/a Blood Gas Total Hemoglobin 13.00 L 13.5-17.5 g/dL Blood Gas Modality Room air FiO2 % 21.0 Influenza Type A Antigen Negative Negative Influenza Type B Antigen Negative Negative SARS-CoV-2 Antigen (Rapid) Negative NEGATIVE Test 01/02/25 06:55 01/01/25 17:47 01/01/25 15:35 01/01/25 14:20 Range/Units White Blood Count 5.8 # 8.2 4.4-10.8 10^3/uL Red Blood Count 3.31 L 3.58 L 4.5-5.90 10^6/uL Hemoglobin 12.2 L 13.2 L 13.5-17.5 g/dL Hematocrit 35.5 L 37.7 L 41.0-53.0 % Mean Corpuscular Volume 107.5 H 105.3 H 80.0-100.0 fL Mean Corpuscular Hemoglobin 36.9 H 36.9 H 28.0-32.0 pg Mean Corpuscular Hemoglobin Concent 34.3 35.0 32.0-36.0 g/dL Red Cell Distribution Width 17.6 H 17.3 H 11.8-14.3 % Platelet Count 194 207 140-450 10^3/uL Mean Platelet Volume 7.9 8.2 6.9-10.8 fL Neutrophils (%) (Auto) 62.4 72.7 37.0-80.0 % Lymphocytes (%) (Auto) 17.0 12.4 10.0-50.0 % Monocytes (%) (Auto) 12.9 H 10.8 0.0-12.0 % Eosinophils (%) (Auto) 7.0 3.6 0.0-7.0 % Basophils (%) (Auto) 0.7 0.5 0.0-2.0 % Neutrophils # (Auto) 3.6 5.9 1.6-8.6 10 ^3/uL Lymphocytes # (Auto) 1.0 1.0 0.4-5.4 10 ^3/uL Monocytes # (Auto) 0.7 0.9 0-1.3 10 ^3/uL Eosinophils # (Auto) 0.4 0.3 0-0.8 10 ^3/uL Basophils # (Auto) 0 0 0-0.2 10 ^3/uL Nucleated Red Blood Cells 0.1 0.0 % Sodium Level 135 L 136 136-145 mmol/L Potassium Level 3.0 L 2.6 L 3.5-5.1 mmol/L Chloride Level 96 L 95 L 98-107 mmol/L Carbon Dioxide Level 29 31 20-31 mmol/L Anion Gap 10 10 5-15 Blood Urea Nitrogen 24 H 26 H 9-23 mg/dL Creatinine 1.45 H 1.59 H 0.700-1.30 mg/dL Glomerular Filtration Rate Calc 50 44 >90 mL/min BUN/Creatinine Ratio 16.6 16.4 10.0-20.0 Serum Glucose 172 H 98 74-106 mg/dL Calcium Level 8.1 L 8.6 L 8.7-10.4 mg/dL Phosphorus Level 3.0 2.4-5.1 mg/dL Magnesium Level 1.1 L 1.6-2.6 mg/dL Total Bilirubin 1.0 0.2-1.0 mg/dL Aspartate Amino Transferase (AST) 70 H 13-40 U/L Alanine Aminotransferase (ALT) 54 H 7-40 U/L Alkaline Phosphatase 84 46-116 U/L Total Protein 5.6 L 5.7-8.2 g/dL Albumin 3.6 3.2-4.8 g/dL Thyroid Stimulating Hormone (TSH) 1.63 0.55-4.78 uIU/mL Parathyroid Hormone (Intact) 91.1 H 18.4-80.1 pg/mL Troponin I High Sensitivity 9 9 9 </=54 ng/L B-Type Natriuretic Peptide 116.57 0-100 pg/mL Assessment Acute kidney injury secondary to dehydration hypokalemia due to potassium depletion Hypomagnesemia COPD exacerbation Recommendation Closely monitor fluid and electrolytes Avoid nephrotoxic medications Strict I&Os Check urinalysis urine electrolytes Check kidney ultrasound KCL replacement Magnesium sulfate IV piggyback Pulmonary consult We will continue to follow Patient seen and examined by myself. I discussed my plan of care with the patient and primary nurse at the bedside I would like to thank Johnson for the consult, will follow Plan discussed with: Patient SHARIFA LOVING MD Jan 02, 2025 11:20
--- NOTE | 2025-01-02 12:42 | DVH ---
US KIDNEY HISTORY: agustin COMPARISON: None TECHNIQUE: Transverse and longitudinal grayscale and color Doppler images were obtained of the kidney s and bladder. FINDINGS: Right kidney: Size: 9.5 cm Cortical thickness: Normal Echogenicity: increased Stones: None Masses: None Hydronephrosis: None Ureters: Not well visualized. Other: None Left kidney: Size: 9.7 cm Cortical thickness: Normal Echogenicity: increased Stones: None Masses: None Hydronephrosis: None Ureters: Not well visualized. Other: None Bladder: Normal Other: None. IMPRESSION: Echogenic renal corticies can be seen with medical renal disease.
--- NOTE | 2025-01-02 13:57 | ECG ---
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
[2025-01-02 14:12] LABS: Folate (Folic Acid) 5.73 ng/mL (>5.38)
[2025-01-02] MEDS: CYANOCOBALAMIN (B-12) 1000 MCG/1 ML VIAL IM ONE (15:00)
[2025-01-02] MEDS: SODIUM CHLORIDE 0.9% 500 ML IV ONE (16:31)
[2025-01-02] MEDS: MULTIPLE VITAMIN TAB PO ONE (16:47)
[2025-01-02] MEDS: THIAMINE HCL 100 MG TAB PO ONE (16:48)
[2025-01-02] MEDS: FOLIC ACID 1 MG TAB PO ONE (16:48)
[2025-01-02] MEDS: CHOLECALCIFEROL (VITD3) 1,000UNIT=25mCg TAB PO ONE (16:50)
[2025-01-02 17:14] LABS: Potassium 3.3 mmol/L (3.5-5.1)
[2025-01-02 17:21] LABS: Magnesium 2.2 mg/dL (1.6-2.6)
--- NOTE | 2025-01-02 19:20 | DVHPNRES ---
Progress Note Date Seen: Jan 02, 2025 Resident Creating Document: GABI BROWN RESIDENT Medical Necessity Reason Pt with a Central, PICC or Fol: No Subjective Review of Systems This is a 79-year-old male who presented to [facility] ED with complaint of shortness of breaths. Past Medical History: Denies past medical history Past Surgical History: Denies all surgeries Family History: Reviewed, noncontributory to the management of this case. Past Social History: The patient lives at home, denies smoking, alcohol or illicit drugs abuse. Patient reports symptoms intermittently progressively get worse with generalized weakness, increased work of breathing for the past 2 days, getting worse today that prompted this visit. In the ED, laboratory data shows WBC 8.2, platelets 207, sodium 136, potassium 2.6, BUN 26, creatinine 1.59, GFR 44, glucose 98, calcium 8.6, troponin 9, BNP 116.57. Chest x-ray show no acute disease. Patient was given breathing treatment, potassium 40 mEq p.o. x1. On my assessment, he continued to complain about SOB most prominent when walking patient denied chest pain, no headache, no dizziness, no diaphoresis, no abdominal pain, no diarrhea, no nausea, no vomiting, no fever, no chills. Objective vital signs Vital Sign Date Time Temp Pulse Resp B/P (MAP) Pulse Ox O2 Delivery O2 Flow Rate FiO2 01/02/25 16:41 98.7 77 17 116/74 (88) 93 98.7 01/02/25 10:00 Room Air* 0 21 Total Intake and Output 01/01/25 01/01/25 01/02/25 15:00 23:00 07:00 Intake Total 0 ml Balance 0 ml medications Current Medications Medications Dose Ordered Sig/Stefan Route Start Time Stop Time Status Last Admin Dose Admin Albuterol 2.5 mg Q4HPRN PRN NEB 01/01/25 17:45 01/02/25 09:12 2.5 MG Ipratropium [place] 0.5 mg Q4HPRN PRN NEB 01/01/25 17:45 01/02/25 09:12 0.5 MG Sodium Chloride 10 ml Q8HR IV 01/01/25 22:00 01/02/25 05:49 10 ML Acetaminophen/ Hydrocodone Bitart 1 tab Q4HP PRN PO 01/01/25 17:45 Ondansetron HCl 4 mg Q4HP PRN IV 01/01/25 17:45 Docusate Sodium 100 mg BIDPRN PRN PO 01/01/25 17:45 Acetaminophen 650 mg Q6HP PRN PO 01/01/25 17:45 Nitroglycerin 0.4 mg Q5MINP PRN SL 01/01/25 19:00 Morphine Sulfate 2 mg Q30M PRN IV 01/01/25 19:00 Cholecalciferol 2,000 unit DAILY PO 01/03/25 10:00 Cyanocobalamin 500 mcg DAILY PO 01/03/25 10:00 Magnesium Oxide 400 mg BID PO 01/02/25 22:00 Multivitamins 1 tab DAILY PO 01/03/25 10:00 Folic Acid 1 mg DAILY PO 01/03/25 10:00 Thiamine HCl 100 mg DAILY PO 01/03/25 10:00 Examination General: Awake, alert, comfortable appearing, in no acute distress. HEENT: Head is normocephalic and atraumatic. Pupils are equal, round, and reactive to light. Extraocular muscles are intact. No nasal discharge. No facial trauma. Intraoral exam shows moist mucous membranes with no tonsillar enlargement or exudate. Neck: Supple with no cervical lymphadenopathy No meningismus. No goiter. Heart: Regular rate without murmur, rub, or gallop. Lungs: Equal breath sounds bilaterally with no wheezing, rales, or rhonchi. There is no chest wall tenderness or instability. Abdomen: No external sign of injury. Bowel sounds are present. Abdomen is soft, nontender. No rebound, no guarding, no rigidity. There are no palpable masses. There is no flank pain on exam. Extremities: Strong peripheral pulses. There is no clubbing, no cyanosis, and no edema. Skin: No rash. Neurologic: Cranial nerves II-XII intact without motor, sensory, or cerebellar deficit, no asterixis. laboratory and microbiology Laboratory Tests 01/02/25 16:25 01/02/25 06:55 Test 01/02/25 06:55 Range/Units Serum Glucose 172 H 74-106 mg/dL Labs and/or images reviewed: Labs reviewed by me, Image(s) reviewed by me Problem List/Assessment/Plan Problem List/Assessment/Plan #Generalized weakness, likely related to hypokalemia, hypomagnesemia, hypovolemia #MARK, likely due to VMN, prerenal #SOB, r/o heart disease #Prediabetes #Hypomagnesemia, moderate #Hypokalemia, moderate #Vitamin D deficiency #Vitamin B12 deficiency #Alcohol abuse Plan: Replenish Mg and K+ Continue IVF Pending echo Counseled on lifestyle modifications, avoiding alcohol abuse ABG ordered, patient doesn't qualify for oxygen Continue vitamin D 2,000 po qd Continue B12 500mcg po qd Continue MVI, folic and thiamine po Goals of care were discussed for 30 mins, full code Case was discussed with Dr. Staples Plan discussed with: Patient, Other (RN) My Orders My Orders Orders - GABI BROWN RESIDENT Procedure Category Date Status Time Abg W/ Co-Ox RT 01/02/25 Logged 10:00 Transfer Orders XFER 01/02/25 Transmitted 10:56 Discontinue Tele CHAR 01/02/25 In Process 10:56 Cholecalciferol PHA 01/03/25 In Process Tablet (Vitamin D3 10:00 Cyanocobalamin PHA 01/03/25 In Process (Vitamin B-12) 10:00 Magnesium Oxide PHA 01/02/25 In Process Tablet (Mag-Ox Tablet) 22:00 Multiple Vitamin PHA 01/03/25 In Process Tablet (Mvi Tab) 10:00 Folic Acid Tablet PHA 01/03/25 In Process 10:00 Thiamine Tab PHA 01/03/25 In Process 10:00 Date of Service: Jan 02, 2025 Billing Provider: WADE STAPLES MD Common Visit Codes: [id number] INP/OBS CARE(HIGH) GABI BROWN RESIDENT Jan 02, 2025 19:20 WADE STAPLES MD Jan 03, 2025 17:38
[2025-01-02] MEDS: MAGNESIUM OXIDE 400 MG TAB PO SCH (22:31)
[2025-01-02] MEDS: POTASSIUM EFFERVESENT TAB 25 MEQ PO ONE (22:32)
[2025-01-03] VITALS (7 sets, daily range): BP systolic 127–142; BP diastolic 79–90; PULSE 71–86; RESP 16–18; TEMP 36.7; O2SAT 94–96
[2025-01-03 02:03] LABS: Urine Bacteria None Seen /hpf (None Seen)
[2025-01-03 02:22] LABS: Urine Blood Negative /uL (Negative); Urine Clarity Clear (Clear); Urine Color Colorless (Yellow); Urine Protein, UAD Negative (Negative); Urine Specific Gravity 1.005 (1.001-1.035); Urine Squamous Epithelial Cell None Seen /hpf (<5); Urine Urobilinogen Normal (Negative); Urine WBC < 1 /HPF (0-3)
[2025-01-03 02:30] LABS: Protein, Urine 6.2 mg/dL (1-14)
[2025-01-03 02:32] LABS: Creatinine, Urine 19.22 mg/dL (30.0-125.0); Urine Protein/Creatinine Ratio 0.32
[2025-01-03 06:46] LABS: Alanine Aminotransferase 38 U/L (7-40); Albumin 3.7 g/dL (3.2-4.8); Alkaline Phosphatase 82 U/L (46-116); Anion Gap 4 (5-15); Blood Urea Nitrogen 15 mg/dL (9-23); Calcium 9.4 mg/dL (8.7-10.4); Chloride 102 mmol/L (98-107); Magnesium 1.9 mg/dL (1.6-2.6); Sodium 138 mmol/L (136-145)
[2025-01-03 06:48] LABS: Bilirubin, Total 0.7 mg/dL (0.2-1.0)
[2025-01-03 06:50] LABS: Aspartate Aminotransferase 47 U/L (13-40); Carbon Dioxide 32 mmol/L (20-31); Glucose 116 mg/dL (74-106); Potassium 5.3 mmol/L (3.5-5.1)
[2025-01-03] MEDS: CHOLECALCIFEROL (VITD3) 1,000UNIT=25mCg TAB PO SCH (09:32)
[2025-01-03] MEDS: SODIUM ZIRCONIUM CYCL 10 GM PAK PO ONE (09:32)
[2025-01-03] MEDS: FOLIC ACID 1 MG TAB PO SCH (09:33)
[2025-01-03] MEDS: CYANOCOBALAMIN 500 MCG TAB PO SCH (09:33)
[2025-01-03] MEDS: THIAMINE HCL 100 MG TAB PO SCH (09:33)
[2025-01-03] MEDS: MULTIPLE VITAMIN TAB PO SCH (09:33)
--- NOTE | 2025-01-03 11:47 | DVHPN2 ---
Progress Note Date Seen: Jan 03, 2025 Medical Necessity Reason Pt with a Central, PICC or Fol: No Objective vital signs Vital Sign Date Time Temp Pulse Resp B/P (MAP) Pulse Ox O2 Delivery O2 Flow Rate FiO2 01/03/25 10:00 96 Room Air* 0 21 01/03/25 09:14 98.7 76 16 139/90 (106) 98.7 Total Intake and Output 01/02/25 01/02/25 01/03/25 15:00 23:00 07:00 Intake Total 100 ml 1300 ml 400 ml Output Total 400 ml 1100 ml Balance 100 ml 900 ml -700 ml medications Current Medications Medications Dose Ordered Sig/Stefan Route Start Time Stop Time Status Last Admin Dose Admin Albuterol 2.5 mg Q4HPRN PRN NEB 01/01/25 17:45 01/02/25 09:12 2.5 MG Ipratropium [place] 0.5 mg Q4HPRN PRN NEB 01/01/25 17:45 01/02/25 09:12 0.5 MG Sodium Chloride 10 ml Q8HR IV 01/01/25 22:00 01/03/25 09:34 10 ML Acetaminophen/ Hydrocodone Bitart 1 tab Q4HP PRN PO 01/01/25 17:45 Ondansetron HCl 4 mg Q4HP PRN IV 01/01/25 17:45 Docusate Sodium 100 mg BIDPRN PRN PO 01/01/25 17:45 Acetaminophen 650 mg Q6HP PRN PO 01/01/25 17:45 Nitroglycerin 0.4 mg Q5MINP PRN SL 01/01/25 19:00 Morphine Sulfate 2 mg Q30M PRN IV 01/01/25 19:00 Cholecalciferol 2,000 unit DAILY PO 01/03/25 10:00 01/03/25 09:32 2,000 UNIT Cyanocobalamin 500 mcg DAILY PO 01/03/25 10:00 01/03/25 09:33 500 MCG Magnesium Oxide 400 mg BID PO 01/02/25 22:00 01/03/25 09:33 400 MG Multivitamins 1 tab DAILY PO 01/03/25 10:00 01/03/25 09:33 1 TAB Folic Acid 1 mg DAILY PO 01/03/25 10:00 01/03/25 09:33 1 MG Thiamine HCl 100 mg DAILY PO 01/03/25 10:00 01/03/25 09:33 100 MG laboratory and microbiology Laboratory Tests 01/03/25 06:03 01/02/25 06:55 Test 01/03/25 06:03 Range/Units Serum Glucose 116 H 74-106 mg/dL Problem List/Assessment/Plan Problem List/Assessment/Plan Acute kidney injury superimposed Chronic Kidney Disease secondary to dehydration hypokalemia due to potassium depletion Diabetes mellitus type 2 Hypomagnesemia COPD exacerbation Vitamin-D deficiency Recommendation Kidney function slowly improving Increased urine output Strict I&Os kidney ultrasound reported bilateral echogenic kidney KCL replacement Magnesium sulfate IV piggyback Vitamin-D replacement Pulmonary consult We will continue to follow Plan discussed with: Patient My Orders My Orders Orders - SHARIFA LOVING MD Procedure Category Date Status Time C-Diff: Collect Next CHAR 01/02/25 In Process Specimen 15:30 SHARIFA LOVING MD Jan 03, 2025 11:47
[2025-01-03] MEDS: ERGOCALCIFEROL 50,000 UNIT(1.25MG) CAP PO SCH (12:00)
[2025-01-03] MEDS: methylPREDNISolone SOD SUCC 40 MG/ML VL IV ONE (13:15)
[2025-01-03] MEDS ORDERED: ERGO1CAP23 PO (13:28)
[2025-01-03] MEDS ORDERED: PRED20TA2 PO (13:28)
[2025-01-03] MEDS ORDERED: CYAN500T3 PO (13:28)
[2025-01-03] MEDS ORDERED: THIA100T10 PO (13:28)
[2025-01-03] MEDS ORDERED: MAGN400T40 PO (13:28)
[2025-01-03] MEDS ORDERED: MULTTAB99 PO (13:28)
[2025-01-03] MEDS ORDERED: ALBUAER3 IN (13:28)
[2025-01-03] MEDS ORDERED: FOLI-119 PO (13:28)
--- NOTE | 2025-01-03 14:32 | DVHDSRES ---
Discharge Summary Date of Admission Resident Creating Document: GABI BROWN RESIDENT Jan 01, 2025 at 19:00 Date of Discharge: Jan 03, 2025 Admitting Diagnosis SOB Labs/Diagnostic Data: Laboratory Results Test 01/03/25 06:03 01/02/25 23:59 01/02/25 16:25 01/02/25 13:06 Sodium Level 138 mmol/L (136-145) Potassium Level 5.3 mmol/L (3.5-5.1) Chloride Level 102 mmol/L (98-107) Carbon Dioxide Level 32 mmol/L (20-31) Anion Gap 4 (5-15) Blood Urea Nitrogen 15 mg/dL (9-23) Creatinine 1.25 mg/dL (0.700-1.30) Glomerular Filtration Rate Calc 59 mL/min (>90) BUN/Creatinine Ratio 12.0 (10.0-20.0) Serum Glucose 116 mg/dL (74-106) Calcium Level 9.4 mg/dL (8.7-10.4) Magnesium Level 1.9 mg/dL (1.6-2.6) Total Bilirubin 0.7 mg/dL (0.2-1.0) Aspartate Amino Transferase (AST) 47 U/L (13-40) Alanine Aminotransferase (ALT) 38 U/L (7-40) Alkaline Phosphatase 82 U/L (46-116) Total Protein 6.0 g/dL (5.7-8.2) Albumin 3.7 g/dL (3.2-4.8) Urine Color Colorless (Yellow) Urine Clarity Clear (Clear) Urine pH 8.0 (5.0-9.0) Urine Specific [place] 1.005 (1.001-1.035) Urine Protein Negative (Negative) Urine Ketones Negative (Negative) Urine Blood Negative /uL (Negative) Urine Nitrite Negative (Negative) Urine Bilirubin Negative (Negative) Urine Urobilinogen Normal mg/dL (Negative) Urine Leukocyte Esterase Negative /uL (Negative) Urine RBC None seen /hpf (0 - 3) Urine Microscopic WBC < 1 /HPF (0-3) Urine Squamous Epithelial Cells None seen /hpf (<5) Urine Bacteria None seen /hpf (None Seen) Urine Creatinine 19.22 mg/dL (30.0-125.0) Urine Protein/Creatinine Ratio 0.32 Urine Sodium 50 mmol/L (40-220) Urine Glucose Normal mg/dL (Normal) Urine Total Protein 6.2 mg/dL (1-14) Hemoglobin A1c 6.1 % A1C (<5.7) Vitamin B12 Level 304 pg/mL (211-911) Vitamin D 25-Hydroxy 18.7 ng/mL (30.0-100) Folic Acid 5.73 ng/mL (>5.38) Test 01/02/25 10:18 01/02/25 09:51 01/02/25 06:55 01/01/25 17:47 Blood Gas Specimen Type Arterial Blood Gas Sample Site Right brachial Blood Gas Patient Temperature 37.0 Arterial Blood Date Drawn [id number] Arterial Blood pH 7.541 (7.350-7.450) Arterial Blood Partial Pressure CO2 31.9 mmHg (35.0-48.0) Arterial Blood Partial Pressure O2 77.4 mmHg (83.0-108.0) Arterial Blood HCO3 26.7 mmol/L (21.0-28.0) Arterial Blood Oxygen Saturation 95.2 % (94.0-98.0) Arterial Blood Base Excess 4.6 mmol/L (-2.0-3.0) Arterial Blood Oxyhemoglobin 94.1 % (94.0-98.0) Arterial Blood Carboxyhemoglobin 0.6 % (0.5-1.5) Arterial Blood Methemoglobin 0.6 % (0.0-1.5) Lam Test N/a Blood Gas Total Hemoglobin 13.00 g/dL (13.5-17.5) Blood Gas Modality Room air FiO2 % 21.0 Influenza Type A Antigen Negative (Negative) Influenza Type B Antigen Negative (Negative) SARS-CoV-2 Antigen (Rapid) Negative (NEGATIVE) White Blood Count 5.8 10^3/uL (4.4-10.8) Red Blood Count 3.31 10^6/uL (4.5-5.90) Hemoglobin 12.2 g/dL (13.5-17.5) Hematocrit 35.5 % (41.0-53.0) Mean Corpuscular Volume 107.5 fL (80.0-100.0) Mean Corpuscular Hemoglobin 36.9 pg (28.0-32.0) Mean Corpuscular Hemoglobin Concent 34.3 g/dL (32.0-36.0) Red Cell Distribution Width 17.6 % (11.8-14.3) Platelet Count 194 10^3/uL (140-450) Mean Platelet Volume 7.9 fL (6.9-10.8) Neutrophils (%) (Auto) 62.4 % (37.0-80.0) Lymphocytes (%) (Auto) 17.0 % (10.0-50.0) Monocytes (%) (Auto) 12.9 % (0.0-12.0) Eosinophils (%) (Auto) 7.0 % (0.0-7.0) Basophils (%) (Auto) 0.7 % (0.0-2.0) Neutrophils # (Auto) 3.6 10 ^3/uL (1.6-8.6) Lymphocytes # (Auto) 1.0 10 ^3/uL (0.4-5.4) Monocytes # (Auto) 0.7 10 ^3/uL (0-1.3) Eosinophils # (Auto) 0.4 10 ^3/uL (0-0.8) Basophils # (Auto) 0 10 ^3/uL (0-0.2) Nucleated Red Blood Cells 0.1 % Phosphorus Level 3.0 mg/dL (2.4-5.1) Thyroid Stimulating Hormone (TSH) 1.63 uIU/mL (0.55-4.78) Parathyroid Hormone (Intact) 91.1 pg/mL (18.4-80.1) Troponin I High Sensitivity 9 ng/L (</=54) Test 01/01/25 14:20 B-Type Natriuretic Peptide 116.57 pg/mL (0-100) Other Laboratory Tests 01/03/25 06:03 01/02/25 06:55 Brief Hx & Hospital Course: This is a 79-year-old male who presented to [facility] ED with complaint of shortness of breaths. Past Medical History: Denies past medical history Past Surgical History: Denies all surgeries Family History: Reviewed, noncontributory to the management of this case. Past Social History: The patient lives at home, denies smoking, illicit drugs abuse. Drinks alcohol 2-3 glass of wine every day Patient reports symptoms intermittently progressively get worse with generalized weakness, increased work of breathing for the past 2 days, getting worse today that prompted this visit. In the ED, laboratory data shows WBC 8.2, platelets 207, sodium 136, potassium 2.6, BUN 26, creatinine 1.59, GFR 44, glucose 98, calcium 8.6, troponin 9, BNP 116.57. Chest x-ray show no acute disease. Patient was given breathing treatment, potassium 40 mEq p.o. x1. On my assessment, he continued to complain about SOB most prominent when walking patient denied chest pain, no headache, no dizziness, no diaphoresis, no abdominal pain, no diarrhea, no nausea, no vomiting, no fever, no chills. Patient was found to have significant hypokalemia and hypomagnesemia, he was also deficiency and vitamin B12 and vitamin-D, this is likely related to alcohol use. Patient continued to state feeling short of breath, we had him walk for 6 minutes on an ABG was drawn, he did not qualify for home oxygen. We performed an echocardiogram which preliminary results show an ejection fraction of 65%, and RVSP of 23. Patient was given breathing treatments, glucocorticoids. Patient stated feeling better, he currently denied any chest pain, significant shortness of breath, dizziness, lightheadedness, he is currently ambulatory, tolerating diet. General: Awake, alert, comfortable appearing, in no acute distress. HEENT: Head is normocephalic and atraumatic. Pupils are equal, round, and reactive to light. Extraocular muscles are intact. No nasal discharge. No facial trauma. Intraoral exam shows moist mucous membranes with no tonsillar enlargement or exudate. Neck: Supple with no cervical lymphadenopathy No meningismus. No goiter. Heart: Regular rate without murmur, rub, or gallop. Lungs: Equal breath sounds bilaterally with no wheezing, rales, or rhonchi. There is no chest wall tenderness or instability. Abdomen: No external sign of injury. Bowel sounds are present. Abdomen is soft, nontender. No rebound, no guarding, no rigidity. There are no palpable masses. There is no flank pain on exam. Extremities: Strong peripheral pulses. There is no clubbing, no cyanosis, and no edema. Skin: No rash. Neurologic: Cranial nerves II-XII intact without motor, sensory, or cerebellar deficit, no asterixis. Patient will be discharged home and continue medications as prescribed. He will continue taking vitamin B12, vitamin-D, vitamin B1, folic acid, MVI, we will prescribe albuterol p.r.n., prednisone oral for five days, he will be having a DC clinic appointment next Wednesday afternoon with Dr. Eddy, patient verbalized understanding and agree with DC plan, we spent over 30 minutes explaining the plan. Case was discussed with Dr. Staples Operations or Procedures [place] [id number] Ph: [phone] DIAGNOSTIC IMAGING Diagnostic Imaging Report : [id number] Signed PATIENT: HARMAN RAMON ACCT: [id number] UNIT: [id number] : 1945 LOC: ER ROOM / BED: / AGE / SEX: 79 / M ADM STATUS: REG ER SERVICE 1413 ORDERING PHYSICIAN: AYANA MOTA MD PROCEDURE(s): CXRP - CHEST PORTABLE REASON: sob ORDER NUMBER(s): [id number], ACCESSION NUMBER(s): [id number] CHEST RADIOGRAPH Indication: sob Technique: Single frontal view of the chest was obtained COMPARISON: None FINDINGS: Lines and Tubes: None Lungs: Clear. Pleura: No effusion. No pneumothorax. Cardiomediastinal contours: Unremarkable Bones: Chronic appearing bilateral rib fractures. IMPRESSION: No acute disease. ATED BY: MARCUS FISCHER MD DICTATED DATE/TIME: 01/01/251445 SIGNED BY: MARCUS FISCHER MD SIGNED DATE/TIME: 01/01/25 144 CC: [address] [address] Ph: [phone] DIAGNOSTIC IMAGING Diagnostic Imaging Report : [id number] Signed PATIENT: HARMAN RAMON ACCT: [id number] UNIT: [id number] : 1945 LOC: [facility] ROOM / BED: [facility] / B AGE / SEX: 79 / M ADM STATUS: ADM IN SERVICE 1122 ORDERING PHYSICIAN: SHARIFA LOVING MD PROCEDURE(s): KIDUS - KIDNEY REASON: agustin ORDER NUMBER(s): [id number], ACCESSION NUMBER(s): [id number] KIDNEY HISTORY: agustin COMPARISON: None TECHNIQUE: Transverse and longitudinal grayscale and color Doppler images were obtained of the kidneys and bladder. FINDINGS: Right kidney: Size: 9.5 cm Cortical thickness: Normal Echogenicity: increased Stones: None Masses: None Hydronephrosis: None Ureters: Not well visualized. Other: None Left kidney: Size: 9.7 cm Cortical thickness: Normal Echogenicity: increased Stones: None Masses: None Hydronephrosis: None Ureters: Not well visualized. Other: None Bladder: Normal Other: None. IMPRESSION: Echogenic renal corticies can be seen with medical renal disease. ATED BY: DYLAN LAMA MD DICTATED DATE/TIME: 01/02/25 123 SIGNED BY: DYLAN LAMA MD SIGNED DATE/TIME: 01/02/25 123 CC: EKG Name: HARMAN RAMON Acct: [id number] [place] [address] ELECTROCARDIOGRAM REPORT PATIENT: HARMAN RAMON ACCT: [id number] : 1945 LOC: [facility] ROOM / BED: [address] [place] [address] AGE / SEX: 79 / M ADM STATUS: ADM IN SERVICE UNIT: [id number] ORDERING PHYSICIAN: GABI BROWN RESIDENT PROCEDURE(s): EKG - ELECTROCARDIGRAM ORDER NUMBER(s): [id number], ACCESSION NUMBER(s): [id number] [facility] Test Date: 2025-01-01 Test Time: 14:14:44 Pat Name: HARMAN RAMON Department: ER Room: [address] [place] [address] Gender: M [employer]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 Patient was counseled about treatment plan, medications, possible side effects, patientverbalized understanding. All questions were answered to the best of my ability. This discharge took greater then 30 minutes in planning, reviewing documentation, counseling the patient, and discussing with other team members." ASSESSMENT ASSESSMENT Assessment AGUSTIN Date of Service: Jan 03, 2025 Billing Provider: WADE STAPLES MD Common Visit Codes: 26528-NJD/OBS DISCH DAY >30min GABI BROWN RESIDENT Jan 03, 2025 14:32 WADE STAPLES MD Jan 03, 2025 17:52
[2025-01-04] MEDS ORDERED: methylPREDNISolone SOD SUCC 40 MG/ML VL IV SCH (10:00)
--- NOTE | 2025-01-05 14:55 | DVHSR ---
APPROVED REPORT EXAM: Two-dimensional and M-mode echocardiogram with Doppler and color Doppler. Blood Pressure: 114/79 mmHg INDICATION chf RISK FACTORS Height: 5'7, Weight: 154 DIMENSIONS LVDd3.6 (3.8-5.7cm)LA (2D)4.1 (1.9-4.0cm)Aortic Root3.7 (2.0-3.7cm) LVDs2.2 (2.5-4.0cm)LA (MM) (1.9-4.0cm)Aortic Cusp Exc1.5 (1.5-2.0cm) EF (%) 65.0 (55-70%)Rt. Atrium3.5 (1.9-4.0cm)Asc. Aorta3.8 cm IVSd1.3 (0.7-1.1cm)RV (D)3.7 (1.8-2.4cm) PWd1.2 (0.7-1.1cm) Mitral Valve MitralMitral Stenosis E wave0.87m/sMV Mean GR.mmHg A wave0.99m/sMV Peak GR.78mmHg E/A ratio0.92D MVAcm2 DECEL [id number] 1/2 [place] Aortic Valve Aortic ValveAortic Stenosis V11.25m/Anthony Mean GR.4mmHg V21.22m/Anthony Peak GR.6mmHg LVOT Diameter2.3 (1.8-2.4cm)Doppler AVA4.25cm2 AI P 1/2 [id number] Pulmonic Valve V20.77m/s Tricuspid Valve TR Velocity2.45m/s [id number] Conclusion Sinus rhythm Concentric LVH. Aortic root enlargement. Mild RV enlargement. Left atrial enlargement. Mild aortic sclerosis without stenosis. Mild mitral annular calcification. Normal tricuspid and pul kam valves. Left ventricular function is preserved at 60% with normal RV function. Mild TR. Mild aortic insufficiency. No pericardial effusion masses or vegetations.
== END 2025-01-03 15:30 | disposition home or self-care (01) | DRG 640 ==
LOC: ER 13:51 → OVERFLOW 19:00 → TELE-WESTW 19:01 → WEST WING 01-02 15:34
PROVIDERS: ADMIT Internal Medicine; ATTEND Internal Medicine
DX: E87.6 Hypokalemia (principal); N17.0 Acute kidney failure with tubular necrosis; J44.1 Chronic obstructive pulmonary disease with (acute) exacerbation; E86.0 Dehydration; Z20.822 Contact with and (suspected) exposure to COVID-19; E53.8 Deficiency of other specified B group vitamins; E55.9 Vitamin D deficiency, unspecified; E86.1 Hypovolemia; F10.10 Alcohol abuse, uncomplicated; N18.9 Chronic kidney disease, unspecified; E11.22 Type 2 diabetes mellitus with diabetic chronic kidney disease; J44.89 Other specified chronic obstructive pulmonary disease; Z79.2 Long term (current) use of antibiotics; Z79.899 Other long term (current) drug therapy; Y90.9 Presence of alcohol in blood, level not specified
CPT/HCPCS: 36415; 36600; 71045; 76775; 80048; 80053; 81001; 82306; 82570; 82607; 82746; 82805; 83036; 83735; 83880; 83970; 84100; 84132; 84156; 84300; 84443; 84484; 85025; 87426; 87804; 93005; 93306; 94640; G0378

== ENCOUNTER 2025-04-09 01:33 | Inpatient (IN) | payer OTHER ==
[~2025-04-09] VITALS: Ht 172.7 cm; Wt 57.5 kg
[~2025-04-09 01:33] MED LIST changes: +ALBUAER3 IN; -CEPH500C PO; -CLOB0.05 TOP; +CYAN500T3 PO; +ERGO1CAP23 PO; +FOLI-119 PO; +MAGN400T40 PO; -METH4PAK PO; +MULTTAB99 PO; -PER60TP TOP; +THIA100T10 PO; -TRIA0.02 TOP; -[UNRECOGNIZED DRUG - CODE] PO
[2025-04-09 02:16] VITALS: PULSE 85; RESP 18; O2SAT 98
[2025-04-09] MEDS: cefTRIAXone 1GM/50ML D5W 50 ML IV ONE ×2 (02:26→18:12)
[2025-04-09] MEDS: SODIUM CHLORIDE 0.9% 1,000 ML IVB ONE (02:27)
--- NOTE | 2025-04-09 02:52 | ED.PDOC ---
History of Present Illness HPI Comments 79 y/o M is BIBA from home for generalized weakness and failure to thrive. Per EMS report, patient's caregiver called after finding him in current state, refusing to eat of drink and residing in poor quality living accommodations. Las well known was 3x days ago. Patient was found in AFib. Known history of AFib, MARK, prediabetes, and alcohol abuse. No chest pain, shortness of breath, nausea, vomiting, fever, chills, or further associated symptoms reported. Chief Complaint: General Weakness Time Seen by MD: 01:40 Primary Care Provider: NONE Reviewed Notes: Nurses Notes, Drop Wire Builder Notes, Medications, Allergies Allergies: Coded Allergies: NO KNOWN ALLERGIES (Unverified , 08/19/23) Home Meds Active Scripts Magnesium Oxide (MAGNESIUM OXIDE) 400 Mg Tab, 1 TAB PO BID, #60 TAB 1 Refill Prov:[facility] 01/03/25 Prednisone (Prednisone) 20 Mg Tab, 20 MG PO DAILY for 5 Days, #5 MG Prov:[facility] 01/03/25 Albuterol Sulfate (VENTOLIN MDI) 90 Mcg Ih, 90 MCG IN Q4HP PRN for 30 Days, #1 INH 2 Refills Prov:[facility] 01/03/25 Thiamine Hcl (VITAMIN B-1) 100 Mg Tb, 100 MG PO DAILY for 30 Days, #30 TAB 2 Refills Prov:[facility] 01/03/25 Multiple Vitamin (Mvi Tab) 1 Tab Tb, 1 TAB PO DAILY for 30 Days, #30 TAB 2 Refills Prov:[facility] 01/03/25 Folic Acid (Folic Acid) 1 Mg Tab, 1 MG PO DAILY for 30 Days, #30 TAB 2 Refills Prov:[facility] 01/03/25 Ergocalciferol (VITAMIN D 30982 UNIT) 50,000 [place], [address] UNIT PO Q7D for 90 Days, #14 CAP Prov:[facility] 01/03/25 Cyanocobalamin (Gnp Vitamin B12) 500 Mcg Tab, 500 MCG PO DAILY for 30 Days, #30 TAB 2 Refills Prov:[facility] 01/03/25 Hydroxyzine Pamoate (Vistaril) 25 Mg Cap, 1 CAP PO TID, #30 CAP Prov:OMER TERRELL 10/18/24 Hydroxyzine Pamoate (Vistaril) 25 Mg Cap, 1 CAP PO TID, #30 CAP Prov:OMER TERRELL 08/19/23 Information Source: Emergency Med Personnel Mode of Arrival: EMS Severity: Moderate Timing: Days Duration: Since onset Prehospital treatment: 12 Lead 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, 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 Past Medical History Past Medical History (Other): AFib MARK hypokalemia hypomagnesemia prediabetes Surgical History: Denies all surgeries Family History Family History: Reviewed,noncontributory to illness Social History Smoker: Non-Smoker Alcohol: Heavy Drugs: Denies Drug Use Lives In: Home All Other Systems: Reviewed and Negative (as per HPI) Physical Exam General Appearance: No Apparent Distress, Normal, Other (elder ) HEENT: Normal ENT Inspection, Pharynx Normal, TMs Normal, Other (dry mucus membranes, otherwise norm HEENT inspection ) Neck: Full Range of Motion, Non-Tender, Normal, Normal Inspection Respiratory: Chest Non-Tender, Lungs Clear, No Accessory Muscle Use, No Respiratory Distress, Normal Breath Sounds Cardiovascular: No Edema, No JVD, No Murmur, No Gallop, Normal Peripheral Pulses, Regular Rate/Rhythm Breast Exam: Deferred Gastrointestinal: No Organomegaly, Non Tender, No Pulsatile Mass, Normal Bowel Sounds, Soft Genitalia: Deferred Pelvic: Deferred Rectal: Deferred Extremities: No calf tenderness, Normal capillary refill, Normal inspection, Normal range of motion, Non-tender, No pedal edema Musculoskeletal : Apperance: Normal Neurologic: Alert, lay out inspector II-XII nml as Tested, Disoriented (to place, event, and time), No Motor Deficits, No Sensory Deficits Cerebellar Function: Normal Reflexes: Normal Skin: Dry, Normal Color, Warm Lymphatic: No Adenopathy Was a procedure done? Was a procedure done?: No EKG EKG : Pulse Rate (adult): 107 [place]: Normal Cardiac Rhythm: Afib Block: None Hypertrophy: None ST: Normal Differential Dx Considerations may include: viral syndrome, UTI, PNA, electrolyte imbalance, dehydration, dementia, among others X-Ray, Labs, Meds, VS Vital Signs Date Time Temp Pulse Resp B/P (MAP) Pulse Ox O2 Delivery O2 Flow Rate FiO2 04/09/25 03:14 107 04/09/25 02:16 85 18 98 Room Air* 0 21 04/09/25 02:16 97.8 85 18 112/75 (87) 98 97.8 04/09/25 01:38 107 04/09/25 01:33 95.3 107 22 122/84 (97) 98 95.3 Lab Test 04/09/25 02:34 Range/Units White Blood Count 7.5 4.4-10.8 10^3/uL Red Blood Count 4.00 L 4.5-5.90 10^6/uL Hemoglobin 13.3 L 13.5-17.5 g/dL Hematocrit 39.6 L 41.0-53.0 % Mean Corpuscular Volume 98.8 80.0-100.0 fL Mean Corpuscular Hemoglobin 33.3 H 28.0-32.0 pg Mean Corpuscular Hemoglobin Concent 33.7 32.0-36.0 g/dL Red Cell Distribution Width 15.0 H 11.8-14.3 % Platelet Count 292 140-450 10^3/uL Mean Platelet Volume 8.9 6.9-10.8 fL Neutrophils (%) (Auto) 65.3 37.0-80.0 % Lymphocytes (%) (Auto) 27.9 10.0-50.0 % Monocytes (%) (Auto) 4.7 0.0-12.0 % Eosinophils (%) (Auto) 1.1 0.0-7.0 % Basophils (%) (Auto) 1.0 0.0-2.0 % Neutrophils # (Auto) 4.9 1.6-8.6 10 ^3/uL Lymphocytes # (Auto) 2.1 0.4-5.4 10 ^3/uL Monocytes # (Auto) 0.4 0-1.3 10 ^3/uL Eosinophils # (Auto) 0.1 0-0.8 10 ^3/uL Basophils # (Auto) 0.1 0-0.2 10 ^3/uL Nucleated Red Blood Cells 0.2 % Sodium Level 160 H 136-145 mmol/L Potassium Level 3.0 L 3.5-5.1 mmol/L Chloride Level 119 H 98-107 mmol/L Carbon Dioxide Level 18 L 20-31 mmol/L Anion Gap 23 H 5-15 Blood Urea Nitrogen 67 H 9-23 mg/dL Creatinine 3.40 H 0.700-1.30 mg/dL Glomerular Filtration Rate Calc 18 >90 mL/min BUN/Creatinine Ratio 19.7 10.0-20.0 Serum Glucose 128 H 74-106 mg/dL Calcium Level 9.4 8.7-10.4 mg/dL Magnesium Level 2.2 1.6-2.6 mg/dL Total Bilirubin 1.2 H 0.2-1.0 mg/dL Aspartate Amino Transferase (AST) 16 <34 U/L Alanine Aminotransferase (ALT) 14 7-40 U/L Alkaline Phosphatase 67 46-116 U/L Total Protein 7.2 5.7-8.2 g/dL Albumin 4.4 3.2-4.8 g/dL Salicylates Level < 3.0 -30 mg/dL Acetaminophen Level Pending Plasma/Serum Blood Alcohol < 3.0 <10 mg/dL Current Medications Medications (Trade) Dose Ordered Sig/Stefan Route Start Time Stop Time Status Last Admin Sodium Chloride 1,000 ml @ 1,000 mls/hr Q1H ONCE IVB 04/09/25 02:15 04/09/25 03:14 DC 04/09/25 02:27 Ceftriaxone Sodium 50 ml @ 100 mls/hr ONCE ONCE IV 04/09/25 02:15 04/09/25 02:44 DC 04/09/25 02:26 Time of 1ST Reevaluation: 02:10 Reevaluation 1ST: Unchanged Patient Education/Counseling: Diagnosis, Treatment, Need For Follow Up Family Education/Counseling: No Family Present Departure 1 Departure Time of Disposition: 03:50 Impression: Primary Impression: Acute metabolic encephalopathy Additional Impressions: Acute renal injury Severe dehydration Hypokalemia Disposition: ADMITTED INPATIENT Admit to: Med Surg Condition: Guarded Discharged With: Self Comments Generalized Weakness, Dehydration, and Acute Renal Injury Chief Complaint: Generalized weakness, decreased appetite, not eating or drinking for two days. History of Present Illness: 79-year-old male brought in by ambulance with generalized weakness. Patient was found by his caregiver at home with decreased appetite, not eating or drinking for the past two days. Patient is alert but confused on presentation. Physical examination reveals dry mucous membranes, consistent with dehydration. Laboratory studies indicate severe dehydration and acute kidney injury. Review of Systems: Constitutional: Generalized weakness, decreased appetite, not eating or drinking for two days. Neurological: Alert but confused, consistent with metabolic encephalopathy. All other systems: Unable to obtain due to patient's confused state. Social History: Patient has a caregiver at home. Further social history unavailable due to patient's confused state. Physical Exam: General: Elderly male, appears weak and ill. HEENT: Dry mucous membranes. Neurological: Alert but confused. Musculoskeletal: Noted to have kyphosis. 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 Lab Results: Electrolytes: - Sodium: 160 mEq/L (elevated) - Potassium: 3.0 mEq/L (low) - Chloride: 119 mEq/L (elevated) - Bicarbonate: 18 mEq/L (low) Renal Function: - Creatinine: 3.4 mg/dL (elevated) - BUN: 67 mg/dL (elevated) Glucose: 128 mg/dL CBC: Unremarkable Imaging and Other Relevant Results: No imaging studies documented. Medical Decision Making: Summary Statement: 79-year-old male presenting with generalized weakness, severe dehydration, hypernatremia, acute kidney injury, and metabolic encephalopathy after not eating or drinking for two days. Problem List: 1. Severe dehydration 2. Hypernatremia (Na 160) 3. Acute kidney injury (Cr 3.4) 4. Metabolic encephalopathy 5. Hypokalemia (K 3.0) 6. Kyphosis Differential Diagnosis: Dehydration due to inadequate oral intake, possible underlying infection, medication side effects, undiagnosed diabetes insipidus, possible stroke or other neurological event, malignancy, or other causes of altered mental status. ED Course: Patient received IV fluid resuscitation in the Emergency Department. Laboratory studies revealed severe electrolyte abnormalities and acute kidney injury. Decision made to admit for continued management of dehydration, electrolyte abnormalities, and acute kidney injury. Assessment and Plan: 1. Severe Dehydration: - Continue IV fluid resuscitation with normal saline, adjusting rate based on clinical response - Strict intake and output monitoring - Daily weights 2. Hypernatremia (Na 160): - Gradual correction of sodium to avoid cerebral edema - Target correction rate of no more than 8-10 mEq/L per 24 hours - Serial electrolyte monitoring every 4-6 hours 3. Acute Kidney Injury (Cr 3.4): - Nephrology consultation - Avoid nephrotoxic medications - Monitor urine output and renal function tests 4. Metabolic Encephalopathy: - Frequent neurological checks - Treat underlying causes (dehydration, electrolyte abnormalities) - Consider neurology consultation if mental status does not improve with correction of metabolic abnormalities 5. Hypokalemia (K 3.0): - Potassium replacement therapy - Serial monitoring of potassium levels 6. Disposition: Admit to Internal Medicine service for management of acute metabolic encephalopathy, severe dehydration, and acute kidney injury. Additional Notes: Patient requires admission for management of severe dehydration, electrolyte abnormalities, and acute kidney injury. Close monitoring of mental status and renal function is warranted. Billing Information: ICD-10: E86.0 - Dehydration ICD-10: N17.9 - Acute kidney failure, unspecified ICD-10: E87.0 - Hypernatremia ICD-10: E87.6 - Hypokalemia ICD-10: F05 - Delirium due to known physiological condition Critical Care Note Critical Care Time?: Yes (35 min-critical care time only) Critical care comment: Total critical care time: Approximately 36 minutes Due to a high probability of clinically significant, life threatening deterioration, the patient required my highest level of preparedness to intervene emergently and I personally spent this critical care time directly and personally managing the patient. This critical care time included obtaining a history; examining the patient; pulse oximetry; ordering and review of studies; arranging urgent treatment with development of a management plan; evaluation of patient's response to treatment; frequent reassessment; and, discussions with other providers. This critical care time was performed to assess and manage the high probability of imminent, life-threatening deterioration that could result in multi-organ failure. It was exclusive of separately billable procedures and treating other patients. Stability Stability form required: No Heart Score Heart Score: Heart Score Response (Comments) Value History N/A 0 EKG N/A 0 Age N/A 0 Risk Factors N/A 0 Troponin N/A 0 Total 0 I personally scribed for CHRISTINE HERRERA MD ([email or web address]) on 04/09/25 at 02:52. Electronically submitted by Connor Yeung ([email or web address]). I personally scribed for CHRISTINE HERRERA MD ([email or web address]) on 04/09/25 at 03:14. Electronically submitted by Connor Yueng ([email or web address]). CHRISTINE HERRERA MD Apr 09, 2025 02:52
[2025-04-09 03:01] LABS: Basophils # (auto) 0.1 10 ^3/uL (0-0.2); Eosinophils # (auto) 0.1 10 ^3/uL (0-0.8); Eosinophils % (auto) 1.1 % (0.0-7.0); Hematocrit 39.6 % (41.0-53.0); Hemoglobin 13.3 g/dL (13.5-17.5); Lymphocytes # (auto) 2.1 10 ^3/uL (0.4-5.4); Lymphocytes % (auto) 27.9 % (10.0-50.0); Mean Corpuscular Hemoglobin 33.3 pg (28.0-32.0); Mean Corpuscular Hgb Conc. 33.7 g/dL (32.0-36.0); Mean Corpuscular Volume 98.8 fL (80.0-100.0); Monocytes # (auto) 0.4 10 ^3/uL (0-1.3); Monocytes % (auto) 4.7 % (0.0-12.0); Neutrophils # (auto) 4.9 10 ^3/uL (1.6-8.6); Neutrophils % (auto) 65.3 % (37.0-80.0); Nucleated Red Blood Cells % 0.2 %; Platelet Count (auto) 292 10^3/uL (140-450); White Blood Cell 7.5 10^3/uL (4.4-10.8)
[2025-04-09 03:10] LABS: Alanine Aminotransferase 14 U/L (7-40); Albumin 4.4 g/dL (3.2-4.8); Alkaline Phosphatase 67 U/L (46-116); Anion Gap 23 (5-15); Aspartate Aminotransferase 16 U/L (<34); BUN/Creatinine Ratio 19.7 (10.0-20.0); Calcium 9.4 mg/dL (8.7-10.4); Magnesium 2.2 mg/dL (1.6-2.6); Total Protein 7.2 g/dL (5.7-8.2)
--- NOTE | 2025-04-09 03:22 | DVH ---
EXAM: CT HEAD WITHOUT CONTRAST INDICATION: ALOC TECHNIQUE: CT of the head without intravenous contrast. Radiation Dose : 1. Head: CT Dose: CTDI volume is 50.81 mGy. Dose-length product is 814.63 mGy*cm The dose indicators for CT are the volume Computed Tomography (CT) Dose Index (CTDIvol) and the Dose Length Product (DLP), and are measured in units of mGy and mGy-cm, respectively. These indicators are not patient dose, but values generated from the CT scanner acquisition factors. The report includes radiation exposure data for exposures received during this examination. COMPARISON: None FINDINGS: Significantly limited exam secondary to patient motion artifact which obscures detail and limits the ability to exclude subtle pathology. IMPRESSION: 1. Nondiagnostic exam secondary to significant patient motion artifact. Consider repeating the exam w hen patient is able to cooperate. Radiation optimization: All CT scans at this facility use at least one of these dose optimization jerri hniques: automated exposure control mA and/or kV adjustment per patient size (includes targeted exam s where dose is matched to clinical indication) or iterative reconstruction.
--- NOTE | 2025-04-09 03:24 | DVH ---
CHEST RADIOGRAPH Indication: SOB Technique: Single frontal view of the chest was obtained COMPARISON: XY CHEST PORTABLE on DOS: 01/01/25 FINDINGS: Lines and Tubes: None Lungs: Clear Pleura: No effusion. No pneumothorax. Cardiomediastinal contours: Unremarkable Bones: Unremarkable IMPRESSION: 1. No acute disease.
[2025-04-09 03:33] LABS: Bilirubin, Total 1.2 mg/dL (0.2-1.0); Blood Urea Nitrogen 67 mg/dL (9-23); Carbon Dioxide 18 mmol/L (20-31); Chloride 119 mmol/L (98-107); Glucose 128 mg/dL (74-106); Salicylate < 3.0 mg/dL (-30); Sodium 160 mmol/L (136-145)
[2025-04-09 03:45] LABS: Blood Alcohol < 3.0 mg/dL (<10)
[2025-04-09 04:11] LABS: Acetaminophen < 2.0 UG/ML (10.0-20.0)
[2025-04-09] MEDS ORDERED: NITROGLYCERIN 0.4 MG SL TAB SL PRN (04:30)
[2025-04-09] MEDS: SODIUM CHLORIDE 0.9% 1,000 ML IV ONE (04:47)
[2025-04-09] MEDS: POTASSIUM CHL 20MEQ/100ML 100 ML IV ONE (04:51)
--- NOTE | 2025-04-09 05:22 | DVHHP2 ---
History of Present Illness Reason for Visit: Altered mental status History of Present Illness 79-year-old male presents for evaluation of altered mental status. Patient was found altered by the caregiver. Patient has been refusing to eat or drink. Patient is currently lethargic not answering questions. Last time patient was seen normal was three days ago. Past Medical History AFib, prediabetic Past Surgical History None Smoke: No ALCOHOL: heavy Lives: Alone Review of Systems Review of Systems Review of systems are limited due to the patient's altered mental status. Allergies: Coded Allergies: NO KNOWN ALLERGIES (Unverified , 08/19/23) Medications Current Medications Medications Dose Ordered Sig/Stefan Route Start Time Stop Time Status Last Admin Dose Admin Ondansetron HCl 4 mg Q4HP PRN IV 04/09/25 04:30 Nitroglycerin 0.4 mg Q5MINP PRN SL 04/09/25 04:30 Morphine Sulfate 2 mg Q30M PRN IV 04/09/25 04:30 Exam Vital Signs Vital Signs Date Time Temp Pulse Resp B/P (MAP) Pulse Ox O2 Delivery O2 Flow Rate FiO2 04/09/25 04:40 67 13 158/70 (99) 100 04/09/25 02:16 Room Air* 0 21 04/09/25 02:16 97.8 97.8 Exam Gen: 79-year-old male in mild distress Skin: Warm, dry, normal color and texture, no rash. HEENT: Normocephalic atraumatic, mucous membranes moist and pink. Neck: Cervical and supraclavicular nodes normal without enlargement, trachea is midline, thyroid gland is normal without masses. Pulmonary: Clear to auscultation and percussion bilaterally. Cardiac: Regular rate and rhythm. No murmur Abdomen: Soft, nontender, nondistended, bowel sounds present all 4 quadrants, no guarding, no rigidity, no organomegaly. Extremities: No cyanosis, clubbing, no edema Neuro: Lethargic Labs/Xrays ORDERING PHYSICIAN: CHRISTINE HERRERA MD PROCEDURE(s): CXRP - CHEST PORTABLE REASON: SOB ORDER NUMBER(s): [id number], ACCESSION NUMBER(s): [id number] CHEST RADIOGRAPH Indication: SOB Technique: Single frontal view of the chest was obtained COMPARISON: XY CHEST PORTABLE on DOS: 3/10/25 FINDINGS: Lines and Tubes: None Lungs: Clear Pleura: No effusion. No pneumothorax. Cardiomediastinal contours: Unremarkable Bones: Unremarkable IMPRESSION: 1. No acute disease. RING PHYSICIAN: CHRISTINE HERRERA MD PROCEDURE(s): HWOCT - HEAD WITHOUT CONTRAST REASON: ALOC ORDER NUMBER(s): [id number], ACCESSION NUMBER(s): [id number] EXAM: CT HEAD WITHOUT CONTRAST INDICATION: ALOC TECHNIQUE: CT of the head without intravenous contrast. Radiation Dose : 1. Head: CT Dose: CTDI volume is 50.81 mGy. Dose-length product is 814.63 mGy*cm The dose indicators for CT are the volume Computed Tomography (CT) Dose Index (CTDIvol) and the Dose Length Product (DLP), and are measured in units of mGy and mGy-cm, respectively. These indicators are not patient dose, but values generated from the CT scanner acquisition factors. The report includes radiation exposure data for exposures received during this examination. COMPARISON: None FINDINGS: Significantly limited exam secondary to patient motion artifact which obscures detail and limits the ability to exclude subtle pathology. IMPRESSION: 1. Nondiagnostic exam secondary to significant patient motion artifact. Consider repeating the exam when patient is able to cooperate. Radiation optimization: All CT scans at this facility use at least one of these dose optimization techniques: automated exposure control mA and/or kV adjustment per patient size (includes targeted exams where dose is matched to clinical indication) or iterative reconstruction. Labs Test 04/09/25 02:34 Range/Units White Blood Count 7.5 4.4-10.8 10^3/uL Red Blood Count 4.00 L 4.5-5.90 10^6/uL Hemoglobin 13.3 L 13.5-17.5 g/dL Hematocrit 39.6 L 41.0-53.0 % Mean Corpuscular Volume 98.8 80.0-100.0 fL Mean Corpuscular Hemoglobin 33.3 H 28.0-32.0 pg Mean Corpuscular Hemoglobin Concent 33.7 32.0-36.0 g/dL Red Cell Distribution Width 15.0 H 11.8-14.3 % Platelet Count 292 140-450 10^3/uL Mean Platelet Volume 8.9 6.9-10.8 fL Neutrophils (%) (Auto) 65.3 37.0-80.0 % Lymphocytes (%) (Auto) 27.9 10.0-50.0 % Monocytes (%) (Auto) 4.7 0.0-12.0 % Eosinophils (%) (Auto) 1.1 0.0-7.0 % Basophils (%) (Auto) 1.0 0.0-2.0 % Neutrophils # (Auto) 4.9 1.6-8.6 10 ^3/uL Lymphocytes # (Auto) 2.1 0.4-5.4 10 ^3/uL Monocytes # (Auto) 0.4 0-1.3 10 ^3/uL Eosinophils # (Auto) 0.1 0-0.8 10 ^3/uL Basophils # (Auto) 0.1 0-0.2 10 ^3/uL Nucleated Red Blood Cells 0.2 % Sodium Level 160 H 136-145 mmol/L Potassium Level 3.0 L 3.5-5.1 mmol/L Chloride Level 119 H 98-107 mmol/L Carbon Dioxide Level 18 L 20-31 mmol/L Anion Gap 23 H 5-15 Blood Urea Nitrogen 67 H 9-23 mg/dL Creatinine 3.40 H 0.700-1.30 mg/dL Glomerular Filtration Rate Calc 18 >90 mL/min BUN/Creatinine Ratio 19.7 10.0-20.0 Serum Glucose 128 H 74-106 mg/dL Calcium Level 9.4 8.7-10.4 mg/dL Magnesium Level 2.2 1.6-2.6 mg/dL Total Bilirubin 1.2 H 0.2-1.0 mg/dL Aspartate Amino Transferase (AST) 16 <34 U/L Alanine Aminotransferase (ALT) 14 7-40 U/L Alkaline Phosphatase 67 46-116 U/L Creatine Kinase 24 L 46-171 U/L Total Protein 7.2 5.7-8.2 g/dL Albumin 4.4 3.2-4.8 g/dL Salicylates Level < 3.0 -30 mg/dL Acetaminophen Level < 2.0 L 10.0-20.0 UG/ML Plasma/Serum Blood Alcohol < 3.0 <10 mg/dL Assessment/Plan Assessment/Plan Assessment Metabolic encephalopathy Failure to thrive Acute kidney injury Electrolyte imbalance Anion gap acidosis Plan Admit the patient to telemetry to the hospitalist Maintenance IV fluids Q.6 hours sodium checks Replete electrolytes Continue treatment per orders. Plan discussed with: Other My Orders Orders - MIRACLE ALMEIDA Procedure Category Date Status Time Sodium LAB 04/09/25 Logged 06:00 Sodium LAB 04/09/25 Logged 12:00 Sodium LAB 04/09/25 Logged 18:00 Potassium Chl PHA 04/09/25 In Process 20meq/100ml 04:30 D5w/Sod Chl 0.45% PHA 04/09/25 In Process (D5w 1/2ns) 04:30 Admit ADMIT 04/09/25 Transmitted 04:18 Renal DIET 04/09/25 Transmitted Standard(2gna,3gk,Lopho) Breakfast Ondansetron Hcl PHA 04/09/25 In Process (Zofran) 04:30 Complete Blood Count LAB 04/10/25 Verified 04:00 Comprehensive LAB 04/10/25 Verified Metabolic Panel 04:00 Condition: Fair CHAR 04/09/25 In Process 04:18 Bedrest With Bathroom [facility] 04/09/25 In Process Privileg 04:18 Nitroglycerin [facility] 04/09/25 In Process Sublingual (Ntrostat 04:30 Morphine Sulfate PHA 04/09/25 In Process Injection 04:30 Stat Ekg For Chest [facility] 04/09/25 In Process Pain 04:18 Notify Md Of Changes [facility] 04/09/25 In Process From Base 04:18 Hiv Cts Specialist For [facility] 04/09/25 In Process 24 Hours 04:18 Emergency Dysrhythmia [facility] 04/09/25 In Process Protocol 04:18 Rhythm Strips Once [facility] 04/09/25 In Process Every Shift 04:18 Oxygen By Nasal RT 04/09/25 Transmitted Cannula 04:18 Date of Service: Apr 09, 2025 Billing Provider: MIRACLE ALMEIDA Common Visit Codes: [id number] INP/OBS CARE (HIGH) MIRACLE ALMEIDA Apr 09, 2025 05:22
--- NOTE | 2025-04-09 05:33 | ECG ---
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
[2025-04-09] MEDS: D5W/SOD CHL 0.45% 1,000 ML IV ONE (06:47)
[2025-04-09] MEDS: THIAMINE HCL 100 MG TAB PO SCH (10:37)
[2025-04-09] MEDS: FOLIC ACID 1 MG TAB PO SCH (10:38)
--- NOTE | 2025-04-09 11:27 | DVHPN2 ---
Subjective Patient is alert oriented only to person. Still confused. Unknown baseline. Reviewed: H&P Changes from previous H/P or p: No Changes General: Per HPI Objective Vitals Vital Signs Date Time Temp Pulse Resp B/P (MAP) Pulse Ox O2 Delivery O2 Flow Rate FiO2 04/09/25 10:00 98.8 95 17 127/79 (95) 98 98.8 04/09/25 07:20 Room Air* 0 21 Exam GEN: Healthy appearing, well-developed, NAD. HEENT: NC/AT; MMM. CV: RRR, no m/r/g. LUNGS: Distant breath sounds with faint end expiratory wheeze. ABD: Soft, NT/ND, NBS, no masses or organomegaly. EXT: skin Warm, well perfused. no rashes. No clubbing, cyanosis, or edema. NEURO: Ambulating with no limitations. No focal deficits. Medications Current Medications Medications Dose Ordered Sig/Stefan Route Start Time Stop Time Status Last Admin Dose Admin Ondansetron HCl 4 mg Q4HP PRN IV 04/09/25 04:30 Nitroglycerin 0.4 mg Q5MINP PRN SL 04/09/25 04:30 Morphine Sulfate 2 mg Q30M PRN IV 04/09/25 04:30 Folic Acid 1 mg DAILY PO 04/09/25 10:00 04/09/25 10:38 1 MG Thiamine HCl 100 mg DAILY PO 04/09/25 10:00 04/09/25 10:37 100 MG Laboratory Results Laboratory Tests 04/09/25 02:34 04/09/25 06:21 Chemistry Test 04/09/25 02:34 Albumin 4.4 g/dL (3.2-4.8) Calcium Level 9.4 mg/dL (8.7-10.4) Magnesium Level 2.2 mg/dL (1.6-2.6) Total Protein 7.2 g/dL (5.7-8.2) LFT Test 04/09/25 02:34 Alanine Aminotransferase (ALT) 14 U/L (7-40) Alkaline Phosphatase 67 U/L (46-116) Aspartate Amino Transferase (AST) 16 U/L (<34) Total Bilirubin 1.2 mg/dL (0.2-1.0) H Labs and/or images reviewed: Labs reviewed by me, Image(s) reviewed by me Assessment/Plan Assessment/Plan 04/09 patient is A&O x1 only. Lives alone. with toxic metabolic encephalopathy. She has history of AFib, prediabetes, alcohol abuse. She was alone at home down for unknown time. No urine at this point. We will continue ceftriaxone. We will get more lab workup found hypernatremic and MARK on? CKD. We will do ammonia, TSH. We will change fluids to D5W at 100 cc/hour. Give 1 time thiamine IV injection. Creatinine is not improving significantly we will get FeNA and kidney ultrasound. Likely a CKD and probably needs Nephrology.. Differential includes hypernatremia,? Alcohol related/withdrawal, MARK uremia, infection? UTI no urine yet, dehydration, dementia. Acute toxic metabolic encephalopathy due to below Hypernatremia History of alcohol abuse,? Alcohol withdrawal MARK on CKD? MARK due to VMN Thiamine deficiency? Wernicke's encephalopathy? Dehydration Infection UTI AFib Prediabetes Clear liquid diet DVT prophylaxis-Lovenox GI prophylaxis PPI Med surge Full code Plan discussed with: Patient Date of Service: Apr 09, 2025 Billing Provider: EFREN PELAYO MD Common Visit Codes: [id number] INP/OBS CARE(HIGH) EFREN PELAYO MD Apr 09, 2025 11:27
[2025-04-09] MEDS: THIAMINE 100mg/ml INJ (200mg/2ml VIAL) IV ONE (12:35)
[2025-04-09] MEDS: D5W 5% 1,000 ML IV SCH (12:35)
[2025-04-09 13:16] LABS: Anion Gap 20 (5-15); Calcium 8.9 mg/dL (8.7-10.4)
[2025-04-09 13:21] LABS: BUN/Creatinine Ratio 21.9 (10.0-20.0); Blood Urea Nitrogen 59 mg/dL (9-23); Carbon Dioxide 17 mmol/L (20-31); Chloride 123 mmol/L (98-107); Glucose 133 mg/dL (74-106); Potassium 2.9 mmol/L (3.5-5.1); Sodium 160 mmol/L (136-145)
[2025-04-09] MEDS: POTASSIUM CHLORIDE 60 MEQ, LIDOCAINE 1% (LOCAL ANESTH.) 6 ML in SODIUM CHL 0.9% 500 ML IV ONE (15:30)
--- NOTE | 2025-04-09 16:14 | DVH ---
RENAL ULTRASOUND History: eval renal disease Comparison: US KIDNEY on DOS: 01/02/25 Technique: Multiple real-time sonographic images of the kidney and bladder were obtained in conjuncti on with Doppler imaging. Findings: Bilateral kidneys are echogenic. The right kidney measures 8.7 cm and demonstrates no evidence of hydronephrosis, perinephric fluid co llection, or shadowing stone. Right renal midpole echogenic lesion measuring 3.9 cm. The left kidney measures 9.5 cm and demonstrates no evidence of hydronephrosis, perinephric fluid col lection, or shadowing stone. Urinary bladder: Prevoid urinary bladder volume is 279 mL. Echogenic debris in the bladder. Impression: Right renal midpole echogenic lesion measuring 3.9 cm. Recommend MRI abdomen with and without contra st to further evaluate renal mass/neoplasm. Small and echogenic kidneys, consistent with medical renal disease. Echogenic debris in the bladder which could be secondary to urinary stasis, infection, hematoma.
[2025-04-09 19:30] VITALS: PULSE 89; RESP 28; O2SAT 96
[2025-04-09 20:26] LABS: Lactic Acid w/Reflex 3.8 mmol/L (0.4-2.0)
[2025-04-09 20:32] VITALS: PULSE 78; RESP 18; O2SAT 96
[2025-04-09] MEDS: MORPHINE SULFATE INJ 2 MG/ml SYRG IV PRN (21:41)
[2025-04-09] MEDS: ONDANSETRON HCL 4 MG/2 ML VIAL IV PRN (21:42)
[2025-04-10] VITALS (9 sets, daily range): BP systolic 115–139; BP diastolic 69–88; PULSE 56–66; RESP 16–18; TEMP 97.5–97.9; O2SAT 92–100
[2025-04-10 07:28] LABS: Basophils # (auto) 0 10 ^3/uL (0-0.2); Basophils % (auto) 0.3 % (0.0-2.0); Eosinophils # (auto) 0.3 10 ^3/uL (0-0.8); Eosinophils % (auto) 3.9 % (0.0-7.0); Hematocrit 34.3 % (41.0-53.0); Hemoglobin 11.9 g/dL (13.5-17.5); Lymphocytes # (auto) 2.2 10 ^3/uL (0.4-5.4); Lymphocytes % (auto) 26.2 % (10.0-50.0); Mean Corpuscular Hemoglobin 33.7 pg (28.0-32.0); Mean Corpuscular Hgb Conc. 34.6 g/dL (32.0-36.0); Mean Corpuscular Volume 97.4 fL (80.0-100.0); Monocytes # (auto) 0.3 10 ^3/uL (0-1.3); Monocytes % (auto) 3.8 % (0.0-12.0); Neutrophils # (auto) 5.5 10 ^3/uL (1.6-8.6); Neutrophils % (auto) 65.8 % (37.0-80.0); Nucleated Red Blood Cells % 0.1 %; Platelet Count (auto) 233 10^3/uL (140-450); Red Blood Cells 3.52 10^6/uL (4.5-5.90); Red Cell Distribution Width 14.7 % (11.8-14.3); White Blood Cell 8.4 10^3/uL (4.4-10.8)
[2025-04-10 07:46] LABS: Alanine Aminotransferase 14 U/L (7-40); Albumin 3.8 g/dL (3.2-4.8); Alkaline Phosphatase 55 U/L (46-116); Anion Gap 16 (5-15); Aspartate Aminotransferase 14 U/L (<34); BUN/Creatinine Ratio 27.4 (10.0-20.0); Bilirubin, Total 0.5 mg/dL (0.2-1.0); Calcium 9.6 mg/dL (8.7-10.4); Carbon Dioxide 21 mmol/L (20-31); Glucose 97 mg/dL (74-106)
[2025-04-10 07:47] LABS: Blood Urea Nitrogen 58 mg/dL (9-23); Chloride 121 mmol/L (98-107); Sodium 158 mmol/L (136-145)
[2025-04-10 07:57] LABS: Urine Bacteria FEW /hpf (None Seen); Urine Blood TRACE /uL (Negative); Urine Clarity Turbid (Clear); Urine Color Light-Yellow (Yellow); Urine Protein, UAD Negative (Negative); Urine Specific Gravity 1.016 (1.001-1.035); Urine Squamous Epithelial Cell None Seen /hpf (<5); Urine Urobilinogen Normal (Negative); Urine WBC 93 /HPF (0-3); Urine WBC Clumps PRESENT /hpf (None Seen); Urine pH 5.5 (5.0-9.0)
[2025-04-10 07:58] LABS: Amphetamine Screen, Urine Neg (NEGATIVE); Barbiturate Scree,Urine Neg (NEGATIVE); Benzodiazephine Screen, Urine Neg (NEGATIVE); Cannabinoid Screen, Urine Neg (NEGATIVE); Cocaine Screen, Urine Neg (NEGATIVE); Creatinine, Urine 96.56 mg/dL (30.0-125.0); Opiate Scree,Urine Neg (NEGATIVE); Phencyclidine Screen, Urine Neg (NEGATIVE)
[2025-04-10] MEDS: cefTRIAXone 1GM/50ML D5W 50 ML IV SCH (08:45)
[2025-04-10] MEDS: POTASSIUM CHLORIDE 60 MEQ, LIDOCAINE 1% (LOCAL ANESTH.) 6 ML in SODIUM CHL 0.9% 500 ML IV ONE (09:15)
--- NOTE | 2025-04-10 11:30 | DVHPN2 ---
Subjective Patient is alert oriented only to person. Still confused. Unknown baseline. Reviewed: H&P Changes from previous H/P or p: No Changes General: Per HPI Objective Vitals Vital Signs Date Time Temp Pulse Resp B/P (MAP) Pulse Ox O2 Delivery O2 Flow Rate FiO2 04/10/25 08:45 97.7 60 18 121/88 (99) 92 97.7 04/10/25 03:33 Room Air* 0 21 Intake/Output Intake and Output 04/10/25 07:00 Intake Total 970 ml Output Total 100 ml Balance 870 ml Intake IV Total 970 ml Output Urine Total 100 ml Exam GEN: Healthy appearing, well-developed, NAD. HEENT: NC/AT; MMM. CV: RRR, no m/r/g. LUNGS: Distant breath sounds with faint end expiratory wheeze. ABD: Soft, NT/ND, NBS, no masses or organomegaly. EXT: skin Warm, well perfused. no rashes. No clubbing, cyanosis, or edema. NEURO: Ambulating with no limitations. No focal deficits. Medications Current Medications Medications Dose Ordered Sig/Stefan Route Start Time Stop Time Status Last Admin Dose Admin Ondansetron HCl 4 mg Q4HP PRN IV 04/09/25 04:30 04/09/25 21:42 4 MG Nitroglycerin 0.4 mg Q5MINP PRN SL 04/09/25 04:30 Morphine Sulfate 2 mg Q30M PRN IV 04/09/25 04:30 04/09/25 21:41 2 MG Folic Acid 1 mg DAILY PO 04/09/25 10:00 04/10/25 08:45 1 MG Thiamine HCl 100 mg DAILY PO 04/09/25 10:00 04/10/25 10:20 100 MG Ceftriaxone Sodium 50 ml @ 100 mls/hr DAILY@09 IV 04/10/25 09:00 04/10/25 08:45 100 MLS/HR Dextrose 1,000 ml @ 100 mls/hr Q10H IV 04/09/25 11:15 04/10/25 06:31 100 MLS/HR Laboratory Results Laboratory Tests 04/10/25 06:24 Chemistry Test 04/09/25 12:44 04/10/25 06:24 Calcium Level 8.9 mg/dL (8.7-10.4) 9.6 mg/dL (8.7-10.4) Albumin 3.8 g/dL (3.2-4.8) Total Protein 6.0 g/dL (5.7-8.2) LFT Test 04/10/25 06:24 Alanine Aminotransferase (ALT) 14 U/L (7-40) Alkaline Phosphatase 55 U/L (46-116) Aspartate Amino Transferase (AST) 14 U/L (<34) Total Bilirubin 0.5 mg/dL (0.2-1.0) HgA1c, TSH Test 04/09/25 12:44 Thyroid Stimulating Hormone (TSH) 0.88 uIU/mL (0.55-4.78) Urinalysis Test 04/10/25 07:35 Urine Color Light-yellow (Yellow) Urine Clarity Turbid (Clear) H Urine pH 5.5 (5.0-9.0) Urine Specific [place] 1.016 (1.001-1.035) Urine Protein Negative (Negative) Urine Ketones Negative (Negative) Urine Blood Trace /uL (Negative) H Urine Nitrite Negative (Negative) Urine Bilirubin Negative (Negative) Urine Urobilinogen Normal mg/dL (Negative) Urine Leukocyte Esterase 3+ /uL (Negative) Urine RBC 2 /hpf (0 - 3) Urine WBC Clumps Present /hpf (None Seen) Urine Microscopic WBC 93 /HPF (0-3) H Urine Squamous Epithelial Cells None seen /hpf (<5) Urine Bacteria Few /hpf (None Seen) H Urine Creatinine 96.56 mg/dL (30.0-125.0) Urine Sodium 59 mmol/L (40-220) Urine Glucose Normal mg/dL (Normal) Microbiology Microbiology Date/Time Source Procedure Growth Status 04/09/25 02:37 Blood Blood Culture - Preliminary NO GROWTH AFTER 24 HOURS OF INCUBATION. Resulted Labs and/or images reviewed: Labs reviewed by me, Image(s) reviewed by me Assessment/Plan Assessment/Plan 04/09 patient is A&O x1 only. Lives alone. with toxic metabolic encephalopathy. She has history of AFib, prediabetes, alcohol abuse. She was alone at home down for unknown time. No urine at this point. We will continue ceftriaxone. We will get more lab workup found hypernatremic and MARK on? CKD. We will do ammonia, TSH. We will change fluids to D5W at 100 cc/hour. Give 1 time thiamine IV injection. Creatinine is not improving significantly we will get FeNA and kidney ultrasound. Likely a CKD and probably needs Nephrology.. Differential includes hypernatremia,? Alcohol related/withdrawal, MARK uremia, infection? UTI no urine yet, dehydration, dementia. 04/10- patient A&O times 2-3, improving. She lives alone and confirms it. He has a who not in contact with him. He is denying alcohol and smoking. Hypernatremia improving we will continue IV fluids. MARK appears to be resolved and now likely baseline CKD level, renal ultrasound showing possible renal mass. We will consult Nephrology. TSH and ammonia are unconcerning. Gap was found yesterday and workup shows mixed with beta hydroxy butyrate positive and lactic acidosis elevated. We will repeat these labs and continue IV fluids D5W 100 cc/hour. Continue IV antibiotics for UTI ceftriaxone. Acute toxic metabolic encephalopathy due to below Hypernatremia History of alcohol abuse,? Alcohol withdrawal MARK on CKD? MARK due to VMN Thiamine deficiency? Wernicke's encephalopathy? Dehydration Infection UTI likely Anion gap metabolic acidosis Starvation ketoacidosis Lactic acidosis AFib Prediabetes -nephrology consult -D5W 100 cc/hour -IV antibiotics ceftriaxone -aspiration precautions -sitter one-to-one -social consult for home safety eval - continue follow up with lactic acidosis - diet renal - PT eval Renal diet DVT prophylaxis-Lovenox GI prophylaxis PPI Med surge Full code Plan discussed with: Patient My Orders Orders - EFREN PELAYO MD Procedure Category Date Status Time Ceftriaxone 1gm/50ml PHA 04/10/25 In Process D5w (Rocephin) 09:00 D5w 5% (Dextrose 5%) PHA 04/09/25 In Process 11:15 Kidney US 04/09/25 Resulted 15:25 *[facility] CONS 04/10/25 Transmitted -[place] 09:05 Potassium Chloride PHA 04/10/25 In Process (Potassium Chloride). 09:15 Basic Metabolic Panel LAB 04/10/25 Logged 14:00 Prothrombin Time W/ LAB 04/10/25 Logged INR 14:00 Lactic Acid W/ Reflex LAB 04/10/25 Logged Order 14:00 * [employer] CONS 04/10/25 Transmitted Consult Date of Service: Apr 10, 2025 Billing Provider: EFREN PELAYO MD Common Visit Codes: 95137-[id number] INP/OBS CARE(HIGH) EFREN PELAYO MD Apr 10, 2025 11:30
[2025-04-10 14:55] LABS: Potassium 3.9 mmol/L (3.5-5.1)
[2025-04-10 14:56] LABS: Anion Gap 13 (5-15); Calcium 9.1 mg/dL (8.7-10.4); Carbon Dioxide 22 mmol/L (20-31); INR 1.25 (0.9-1.15)
[2025-04-10 14:59] LABS: Chloride 125 mmol/L (98-107); Sodium 160 mmol/L (136-145)
[2025-04-10 15:01] LABS: BUN/Creatinine Ratio 30.2 (10.0-20.0); Glucose 92 mg/dL (74-106)
[2025-04-10 15:02] LABS: Blood Urea Nitrogen 58 mg/dL (9-23)
--- NOTE | 2025-04-10 18:01 | DVHINCON2 ---
Date of service: Apr 10, 2025 Referring Physician Reason for Consultation MARK History of Present Illness 79 years old male with past medical history of alcohol abuse, Chronic kidney disease, atrial fibrillation, presented with chief complaints of altered mental status patient is currently lethargic he does have a sitter bedside he can not answer the questions nephrology consulted for hyponatremia, Acute kidney injury, renal mass on ultrasound Past Medical History As per HPI Past Surgical History Unknown exactly Allergies: Coded Allergies: NO KNOWN ALLERGIES (Unverified , 08/19/23) Home Meds Active Scripts Magnesium Oxide (MAGNESIUM OXIDE) 400 Mg Tab, 1 TAB PO BID, #60 TAB 1 Refill Prov:SALLY KELLY,GABI [facility] [place] 01/03/25 Prednisone (Prednisone) 20 Mg Tab, 20 MG PO DAILY for 5 Days, #5 MG Prov:SALLY KELLYGABI COSTELLO [facility] [place] 01/03/25 Albuterol Sulfate (VENTOLIN MDI) 90 Mcg Ih, 90 MCG IN Q4HP PRN for 30 Days, #1 INH 2 Refills Prov:SALLY KELLYGABI COSTELLO [facility] [place] 01/03/25 Thiamine Hcl (VITAMIN B-1) 100 Mg Tb, 100 MG PO DAILY for 30 Days, #30 TAB 2 Refills Prov:SALLY KELLY,GABI [facility] [place] 01/03/25 Multiple Vitamin (Mvi Tab) 1 Tab Tb, 1 TAB PO DAILY for 30 Days, #30 TAB 2 Refills Prov:SALLY KELLYGABI COSTELLO [facility] [place] 01/03/25 Folic Acid (Folic Acid) 1 Mg Tab, 1 MG PO DAILY for 30 Days, #30 TAB 2 Refills Prov:SALLY KELLYGABI COSTELLO [facility] [place] 01/03/25 Ergocalciferol (VITAMIN D 99628 UNIT) 50,000 [place], [address] UNIT PO Q7D for 90 Days, #14 CAP Prov:SALLY KELLYGABI COSTELLO [facility] [place] 01/03/25 Cyanocobalamin (Gnp Vitamin B12) 500 Mcg Tab, 500 MCG PO DAILY for 30 Days, #30 TAB 2 Refills Prov:SALLY KELLYGABI COSTELLO [facility] [place] 01/03/25 Hydroxyzine Pamoate (Vistaril) 25 Mg Cap, 1 CAP PO TID, #30 CAP Prov:OMER TERRELL 10/18/24 Hydroxyzine Pamoate (Vistaril) 25 Mg Cap, 1 CAP PO TID, #30 CAP Prov:OMER TERRELL 08/19/23 Current Medications Current Medications Medications (Trade) Dose Ordered Sig/Stefan Route PRN Reason Start Time Stop Time Status Last Admin Ceftriaxone Sodium 50 ml @ 100 mls/hr DAILY@09 IV 04/10/25 09:00 04/10/25 08:45 Family History: Patient reports no known family medical history. Review of Systems Poor historian H&P Exam Vital Signs/I&O Vital Sign Date Time Temp Pulse Resp B/P (MAP) Pulse Ox O2 Delivery O2 Flow Rate FiO2 04/10/25 17:18 97.8 60 16 119/70 (86) 97 97.8 04/10/25 08:05 Room Air* 0 21 Intake and Output 04/09/25 04/10/25 19:00 07:00 Intake Total 970 ml Output Total 100 ml Balance 970 ml -100 ml IV Total 970 ml Output Urine Total 100 ml Physical Exam Patient not awake alert or oriented Appears confused Fair bilateral air entry Sitter is bedside Has Bullard catheter Labs/Diagnostic Data Labs/Diagnostic Data Laboratory Tests Test 04/10/25 14:25 04/10/25 07:35 04/10/25 06:24 04/09/25 21:20 Range/Units Prothrombin Time 13.0 H 9.3-11.8 sec Prothrombin Time INR 1.25 H 0.9-1.15 Sodium Level 160 H 158 H 136-145 mmol/L Potassium Level 3.9 3.0 L 3.5-5.1 mmol/L Chloride Level 125 H 121 H 98-107 mmol/L Carbon Dioxide Level 22 21 20-31 mmol/L Anion Gap 13 16 H 5-15 Blood Urea Nitrogen 58 H 58 H 9-23 mg/dL Creatinine 1.92 H 2.12 H 0.700-1.30 mg/dL Glomerular Filtration Rate Calc 35 31 >90 mL/min BUN/Creatinine Ratio 30.2 H 27.4 H 10.0-20.0 Serum Glucose 92 97 74-106 mg/dL Lactic Acid Level 1.8 4.7 *H 0.4-2.0 mmol/L Calcium Level 9.1 9.6 8.7-10.4 mg/dL Urine Color Light-yellow Yellow Urine Clarity Turbid H Clear Urine pH 5.5 5.0-9.0 Urine Specific [place] 1.016 1.001-1.035 Urine Protein Negative Negative Urine Ketones Negative Negative Urine Blood Trace H Negative /uL Urine Nitrite Negative Negative Urine Bilirubin Negative Negative Urine Urobilinogen Normal Negative mg/dL Urine Leukocyte Esterase 3+ Negative /uL Urine RBC 2 0 - 3 /hpf Urine WBC Clumps Present None Seen /hpf Urine Microscopic WBC 93 H 0-3 /HPF Urine Squamous Epithelial Cells None seen <5 /hpf Urine Bacteria Few H None Seen /hpf Urine Creatinine 96.56 30.0-125.0 mg/dL Urine Sodium 59 40-220 mmol/L Urine Glucose Normal Normal mg/dL Urine Opiates Screen Neg NEGATIVE Urine Fentanyl Screen Neg NEGATIVE Urine Barbiturates Screen Neg NEGATIVE Urine Phencyclidine Screen Neg NEGATIVE Urine Amphetamines Screen Neg NEGATIVE Urine Benzodiazepines Screen Neg NEGATIVE Urine Cocaine Screen Neg NEGATIVE Urine Cannabinoids Screen Neg NEGATIVE White Blood Count 8.4 4.4-10.8 10^3/uL Red Blood Count 3.52 L 4.5-5.90 10^6/uL Hemoglobin 11.9 L 13.5-17.5 g/dL Hematocrit 34.3 #L 41.0-53.0 % Mean Corpuscular Volume 97.4 80.0-100.0 fL Mean Corpuscular Hemoglobin 33.7 H 28.0-32.0 pg Mean Corpuscular Hemoglobin Concent 34.6 32.0-36.0 g/dL Red Cell Distribution Width 14.7 H 11.8-14.3 % Platelet Count 233 140-450 10^3/uL Mean Platelet Volume 8.4 6.9-10.8 fL Neutrophils (%) (Auto) 65.8 37.0-80.0 % Lymphocytes (%) (Auto) 26.2 10.0-50.0 % Monocytes (%) (Auto) 3.8 0.0-12.0 % Eosinophils (%) (Auto) 3.9 0.0-7.0 % Basophils (%) (Auto) 0.3 0.0-2.0 % Neutrophils # (Auto) 5.5 1.6-8.6 10 ^3/uL Lymphocytes # (Auto) 2.2 0.4-5.4 10 ^3/uL Monocytes # (Auto) 0.3 0-1.3 10 ^3/uL Eosinophils # (Auto) 0.3 0-0.8 10 ^3/uL Basophils # (Auto) 0 0-0.2 10 ^3/uL Nucleated Red Blood Cells 0.1 % Total Bilirubin 0.5 0.2-1.0 mg/dL Aspartate Amino Transferase (AST) 14 <34 U/L Alanine Aminotransferase (ALT) 14 7-40 U/L Alkaline Phosphatase 55 46-116 U/L Total Protein 6.0 5.7-8.2 g/dL Albumin 3.8 3.2-4.8 g/dL Test 04/09/25 19:12 04/09/25 18:31 04/09/25 12:44 04/09/25 07:53 Range/Units Lactic Acid Level 3.8 *H 0.4-2.0 mmol/L Sodium Level 157 H 160 H 136-145 mmol/L Potassium Level 2.9 L 3.5-5.1 mmol/L Chloride Level 123 H 98-107 mmol/L Carbon Dioxide Level 17 L 20-31 mmol/L Anion Gap 20 H 5-15 Blood Urea Nitrogen 59 H 9-23 mg/dL Creatinine 2.69 H 0.700-1.30 mg/dL Glomerular Filtration Rate Calc 24 >90 mL/min BUN/Creatinine Ratio 21.9 H 10.0-20.0 Serum Glucose 133 H 74-106 mg/dL Calcium Level 8.9 8.7-10.4 mg/dL Ammonia < 10 L 11-32 umol/L Beta-Hydroxybutyric Acid 1.155 H < 0.4 mmol/L Thyroid Stimulating Hormone (TSH) 0.88 0.55-4.78 uIU/mL POC Glucose 112 H 70-106 mg/dl Test 04/09/25 06:21 04/09/25 02:34 Range/Units Sodium Level 163 *H 160 H 136-145 mmol/L White Blood Count 7.5 4.4-10.8 10^3/uL Red Blood Count 4.00 L 4.5-5.90 10^6/uL Hemoglobin 13.3 L 13.5-17.5 g/dL Hematocrit 39.6 L 41.0-53.0 % Mean Corpuscular Volume 98.8 80.0-100.0 fL Mean Corpuscular Hemoglobin 33.3 H 28.0-32.0 pg Mean Corpuscular Hemoglobin Concent 33.7 32.0-36.0 g/dL Red Cell Distribution Width 15.0 H 11.8-14.3 % Platelet Count 292 140-450 10^3/uL Mean Platelet Volume 8.9 6.9-10.8 fL Neutrophils (%) (Auto) 65.3 37.0-80.0 % Lymphocytes (%) (Auto) 27.9 10.0-50.0 % Monocytes (%) (Auto) 4.7 0.0-12.0 % Eosinophils (%) (Auto) 1.1 0.0-7.0 % Basophils (%) (Auto) 1.0 0.0-2.0 % Neutrophils # (Auto) 4.9 1.6-8.6 10 ^3/uL Lymphocytes # (Auto) 2.1 0.4-5.4 10 ^3/uL Monocytes # (Auto) 0.4 0-1.3 10 ^3/uL Eosinophils # (Auto) 0.1 0-0.8 10 ^3/uL Basophils # (Auto) 0.1 0-0.2 10 ^3/uL Nucleated Red Blood Cells 0.2 % Potassium Level 3.0 L 3.5-5.1 mmol/L Chloride Level 119 H 98-107 mmol/L Carbon Dioxide Level 18 L 20-31 mmol/L Anion Gap 23 H 5-15 Blood Urea Nitrogen 67 H 9-23 mg/dL Creatinine 3.40 H 0.700-1.30 mg/dL Glomerular Filtration Rate Calc 18 >90 mL/min BUN/Creatinine Ratio 19.7 10.0-20.0 Serum Glucose 128 H 74-106 mg/dL Calcium Level 9.4 8.7-10.4 mg/dL Magnesium Level 2.2 1.6-2.6 mg/dL Total Bilirubin 1.2 H 0.2-1.0 mg/dL Aspartate Amino Transferase (AST) 16 <34 U/L Alanine Aminotransferase (ALT) 14 7-40 U/L Alkaline Phosphatase 67 46-116 U/L Creatine Kinase 24 L 46-171 U/L Total Protein 7.2 5.7-8.2 g/dL Albumin 4.4 3.2-4.8 g/dL Salicylates Level < 3.0 -30 mg/dL Acetaminophen Level < 2.0 L 10.0-20.0 UG/ML Plasma/Serum Blood Alcohol < 3.0 <10 mg/dL Assessment Acute kidney injury likely hemodynamic mediated in the setting of dehydration Hypernatremia Baseline Chronic kidney disease 3A Encephalopathy Renal mass Recommendations Agree with D5W IV Urology consult for renal mass Renal function better since admission Sitter bedside patient is confused Plan discussed with: Other JIMMY KHALIL MD Apr 10, 2025 18:01
[2025-04-10] MEDS: HYDROcodone-ACET 5/325MG TAB PO PRN (21:40)
[2025-04-11] VITALS (8 sets, daily range): BP systolic 101–132; BP diastolic 60–88; PULSE 52–98; RESP 15–18; TEMP 97.4–98; O2SAT 90–98
[2025-04-11 07:33] LABS: Alanine Aminotransferase 13 U/L (7-40); Albumin 3.2 g/dL (3.2-4.8); Alkaline Phosphatase 48 U/L (46-116); Anion Gap 13 (5-15); Aspartate Aminotransferase 19 U/L (<34); BUN/Creatinine Ratio 21.3 (10.0-20.0); Blood Urea Nitrogen 37 mg/dL (9-23); Calcium 9.1 mg/dL (8.7-10.4); Carbon Dioxide 19 mmol/L (20-31); Chloride 123 mmol/L (98-107); Glucose 135 mg/dL (74-106); Potassium 3.4 mmol/L (3.5-5.1); Sodium 155 mmol/L (136-145); Total Protein 5.2 g/dL (5.7-8.2)
[2025-04-11 07:34] LABS: Bilirubin, Total 0.4 mg/dL (0.2-1.0)
--- NOTE | 2025-04-11 08:19 | DVHPN2 ---
Progress Note Date Seen: Apr 11, 2025 Medical Necessity Reason Pt with a Central, PICC or Fol: Yes The following are medically ne: Bullard Catheter Subjective Patient reports: Other Review of Systems: Deferred Objective vital signs Vital Sign Date Time Temp Pulse Resp B/P (MAP) Pulse Ox O2 Delivery O2 Flow Rate FiO2 04/11/25 05:00 97.8 60 17 128/76 (93) 96 97.8 04/10/25 20:00 Room Air* 0 21 Total Intake and Output 04/10/25 04/10/25 04/11/25 15:00 23:00 07:00 Intake Total 50 ml 856 ml 150 ml Output Total 100 ml 300 ml Balance 50 ml 756 ml -150 ml medications Current Medications Medications Dose Ordered Sig/Stefan Route Start Time Stop Time Status Last Admin Dose Admin Ondansetron HCl 4 mg Q4HP PRN IV 04/09/25 04:30 04/09/25 21:42 4 MG Nitroglycerin 0.4 mg Q5MINP PRN SL 04/09/25 04:30 Morphine Sulfate 2 mg Q30M PRN IV 04/09/25 04:30 04/09/25 21:41 2 MG Folic Acid 1 mg DAILY PO 04/09/25 10:00 04/10/25 08:45 1 MG Thiamine HCl 100 mg DAILY PO 04/09/25 10:00 04/10/25 10:20 100 MG Ceftriaxone Sodium 50 ml @ 100 mls/hr DAILY@09 IV 04/10/25 09:00 04/10/25 08:45 100 MLS/HR Dextrose 1,000 ml @ 100 mls/hr Q10H IV 04/09/25 11:15 04/11/25 01:32 100 MLS/HR Acetaminophen/ Hydrocodone Bitart 1 tab Q6HPRN PRN PO 04/10/25 20:15 04/10/25 21:40 1 TAB Examination: GENERAL:Abnormal, MSK:Abnormal, NEURO:Abnormal laboratory and microbiology Laboratory Tests 04/11/25 05:41 04/10/25 06:24 Test 04/11/25 05:41 Range/Units Serum Glucose 135 H 74-106 mg/dL Microbiology Date/Time Source Procedure Growth Status 04/09/25 02:37 Blood Blood Culture - Preliminary NO GROWTH AFTER 48 HOURS OF INCUBATION. Resulted Problem List/Assessment/Plan Problem List/Assessment/Plan Acute kidney injury likely hemodynamic mediated in the setting of dehydration Hypernatremia Baseline Chronic kidney disease 3A Encephalopathy Renal mass Hypokalemia Recommendations Agree with D5W IV Urology consult for renal mass Renal function better since admission Potassium replace Plan discussed with: Other My Orders My Orders Orders - JIMMY KHALIL MD Procedure Category Date Status Time * Urology Consult CONS 04/10/25 Transmitted 14:29 Potassium Chl Luis PHA 04/11/25 Transmitted KCL 08:15 JIMMY KHALIL MD Apr 11, 2025 08:19
--- NOTE | 2025-04-11 08:29 | DVHINCON2 ---
Date of service: Apr 11, 2025 Referring Physician Hospitalist Reason for Consultation Renal mass on US History of Present Illness PATIENT: HARMAN RAMON ACCT: [id number] UNIT: [id number] : 1945 LOC: OVERFLOW ROOM / BED: 1017-ERT / A AGE / SEX: 79 / M ADM STATUS: ADM IN SERVICE 1525 ORDERING PHYSICIAN: EFREN PELAYO MD PROCEDURE(s): KIDUS - KIDNEY REASON: eval renal disease ORDER NUMBER(s): [id number], ACCESSION NUMBER(s): [id number] RENAL ULTRASOUND History: eval renal disease Comparison: US KIDNEY on DOS: 01/02/25 Technique: Multiple real-time sonographic images of the kidney and bladder were obtained in conjunction with Doppler imaging. Findings: Bilateral kidneys are echogenic. The right kidney measures 8.7 cm and demonstrates no evidence of hydronephrosis, perinephric fluid collection, or shadowing stone. Right renal midpole echogenic lesion measuring 3.9 cm. The left kidney measures 9.5 cm and demonstrates no evidence of hydronephrosis, perinephric fluid collection, or shadowing stone. Urinary bladder: Prevoid urinary bladder volume is 279 mL. Echogenic debris in the bladder. Impression: Right renal midpole echogenic lesion measuring 3.9 cm. Recommend MRI abdomen with and without contrast to further evaluate renal mass/neoplasm. Small and echogenic kidneys, consistent with medical renal disease. Echogenic debris in the bladder which could be secondary to urinary stasis, infection, hematoma. ATED BY: BARB MAI MD DICTATED DATE/TIME: 04/09/25 1612 SIGNED BY: BARB MAI MD SIGNED DATE/TIME: 04/09/25 161 Patient admitted for ALOC and being treated for metabolic encephalopathy. 79-year-old male presents for evaluation of altered mental status. Patient was found altered by the caregiver. Patient has been refusing to eat or drink. Patient is currently lethargic not answering questions. Last time patient was seen normal was three days ago. Past Medical History AFib, prediabetic Past Surgical History Past Surgical History None Family History: Patient reports no known family medical history. Allergies: Coded Allergies: NO KNOWN ALLERGIES (Unverified , 08/19/23) Home Meds Active Scripts Magnesium Oxide (MAGNESIUM OXIDE) 400 Mg Tab, 1 TAB PO BID, #60 TAB 1 Refill Prov:GABI BROWN [facility] 01/03/25 Prednisone (Prednisone) 20 Mg Tab, 20 MG PO DAILY for 5 Days, #5 MG Prov:GABI BROWN [facility] 01/03/25 Albuterol Sulfate (VENTOLIN MDI) 90 Mcg Ih, 90 MCG IN Q4HP PRN for 30 Days, #1 INH 2 Refills Prov:GABI BROWN [facility] 01/03/25 Thiamine Hcl (VITAMIN B-1) 100 Mg Tb, 100 MG PO DAILY for 30 Days, #30 TAB 2 Refills Prov:GABI BROWN [facility] 01/03/25 Multiple Vitamin (Mvi Tab) 1 Tab Tb, 1 TAB PO DAILY for 30 Days, #30 TAB 2 Refills Prov:GABI BROWN [facility] 01/03/25 Folic Acid (Folic Acid) 1 Mg Tab, 1 MG PO DAILY for 30 Days, #30 TAB 2 Refills Prov:GABI BROWN [facility] 01/03/25 Ergocalciferol (VITAMIN D 03530 UNIT) 50,000 [place], [address] UNIT PO Q7D for 90 Days, #14 CAP Prov:GABI BROWN [facility] 01/03/25 Cyanocobalamin (Gnp Vitamin B12) 500 Mcg Tab, 500 MCG PO DAILY for 30 Days, #30 TAB 2 Refills Prov:GABI BROWN [facility] 01/03/25 Hydroxyzine Pamoate (Vistaril) 25 Mg Cap, 1 CAP PO TID, #30 CAP Prov:OMER TERRELL 10/18/24 Hydroxyzine Pamoate (Vistaril) 25 Mg Cap, 1 CAP PO TID, #30 CAP Prov:OMER TERRELL 08/19/23 Current Medications Current Medications Medications (Trade) Dose Ordered Sig/Stefan Route PRN Reason Start Time Stop Time Status Last Admin Ceftriaxone Sodium 50 ml @ 100 mls/hr DAILY@09 IV 04/10/25 09:00 04/10/25 08:45 Acetaminophen/ Hydrocodone Bitart ([place] 5/325MG Tab) 1 tab Q6HPRN PRN PO MODERATE PAIN (4-6 PAIN SCALE) 04/10/25 20:15 04/10/25 21:40 Potassium Chloride 100 ml @ 50 mls/hr Q2H IV 04/11/25 08:15 04/11/25 12:14 Review of Systems as per HPI Vital Signs Vital Signs Date Time Temp Pulse Resp B/P (MAP) Pulse Ox O2 Delivery O2 Flow Rate FiO2 04/11/25 05:00 97.8 60 17 128/76 (93) 96 97.8 04/10/25 20:00 Room Air* 0 21 Physical Exam Exam Vital Signs Vital Signs Date Time Temp Pulse Resp B/P (MAP) Pulse Ox O2 Delivery O2 Flow Rate FiO2 04/09/25 04:40 67 13 158/70 (99) 100 04/09/25 02:16 Room Air* 0 21 04/09/25 02:16 97.8 97.8 Exam Gen: 79-year-old male in mild distress Skin: Warm, dry, normal color and texture, no rash. HEENT: Normocephalic atraumatic, mucous membranes moist and pink. Neck: Cervical and supraclavicular nodes normal without enlargement, trachea is midline, thyroid gland is normal without masses. Pulmonary: Clear to auscultation and percussion bilaterally. Cardiac: Regular rate and rhythm. No murmur Abdomen: Soft, nontender, nondistended, bowel sounds present all 4 quadrants, no guarding, no rigidity, no organomegaly. Extremities: No cyanosis, clubbing, no edema Neuro: Lethargic Labs/Diagnostic Data Labs Test 04/11/25 05:41 04/10/25 14:25 04/10/25 07:35 04/10/25 06:24 Range/Units Sodium Level 155 #H 136-145 mmol/L Potassium Level 3.4 L 3.5-5.1 mmol/L Chloride Level 123 H 98-107 mmol/L Carbon Dioxide Level 19 L 20-31 mmol/L Anion Gap 13 5-15 Blood Urea Nitrogen 37 #H 9-23 mg/dL Creatinine 1.74 H 0.700-1.30 mg/dL Glomerular Filtration Rate Calc 40 >90 mL/min BUN/Creatinine Ratio 21.3 H 10.0-20.0 Serum Glucose 135 H 74-106 mg/dL Calcium Level 9.1 8.7-10.4 mg/dL Total Bilirubin 0.4 0.2-1.0 mg/dL Aspartate Amino Transferase (AST) 19 <34 U/L Alanine Aminotransferase (ALT) 13 7-40 U/L Alkaline Phosphatase 48 46-116 U/L Total Protein 5.2 L 5.7-8.2 g/dL Albumin 3.2 3.2-4.8 g/dL Prothrombin Time 13.0 H 9.3-11.8 sec Prothrombin Time INR 1.25 H 0.9-1.15 Lactic Acid Level 1.8 0.4-2.0 mmol/L Urine Color Light-yellow Yellow Urine Clarity Turbid H Clear Urine pH 5.5 5.0-9.0 Urine Specific [place] 1.016 1.001-1.035 Urine Protein Negative Negative Urine Ketones Negative Negative Urine Blood Trace H Negative /uL Urine Nitrite Negative Negative Urine Bilirubin Negative Negative Urine Urobilinogen Normal Negative mg/dL Urine Leukocyte Esterase 3+ Negative /uL Urine RBC 2 0 - 3 /hpf Urine WBC Clumps Present None Seen /hpf Urine Microscopic WBC 93 H 0-3 /HPF Urine Squamous Epithelial Cells None seen <5 /hpf Urine Bacteria Few H None Seen /hpf Urine Creatinine 96.56 30.0-125.0 mg/dL Urine Sodium 59 40-220 mmol/L Urine Glucose Normal Normal mg/dL Urine Opiates Screen Neg NEGATIVE Urine Fentanyl Screen Neg NEGATIVE Urine Barbiturates Screen Neg NEGATIVE Urine Phencyclidine Screen Neg NEGATIVE Urine Amphetamines Screen Neg NEGATIVE Urine Benzodiazepines Screen Neg NEGATIVE Urine Cocaine Screen Neg NEGATIVE Urine Cannabinoids Screen Neg NEGATIVE White Blood Count 8.4 4.4-10.8 10^3/uL Red Blood Count 3.52 L 4.5-5.90 10^6/uL Hemoglobin 11.9 L 13.5-17.5 g/dL Hematocrit 34.3 #L 41.0-53.0 % Mean Corpuscular Volume 97.4 80.0-100.0 fL Mean Corpuscular Hemoglobin 33.7 H 28.0-32.0 pg Mean Corpuscular Hemoglobin Concent 34.6 32.0-36.0 g/dL Red Cell Distribution Width 14.7 H 11.8-14.3 % Platelet Count 233 140-450 10^3/uL Mean Platelet Volume 8.4 6.9-10.8 fL Neutrophils (%) (Auto) 65.8 37.0-80.0 % Lymphocytes (%) (Auto) 26.2 10.0-50.0 % Monocytes (%) (Auto) 3.8 0.0-12.0 % Eosinophils (%) (Auto) 3.9 0.0-7.0 % Basophils (%) (Auto) 0.3 0.0-2.0 % Neutrophils # (Auto) 5.5 1.6-8.6 10 ^3/uL Lymphocytes # (Auto) 2.2 0.4-5.4 10 ^3/uL Monocytes # (Auto) 0.3 0-1.3 10 ^3/uL Eosinophils # (Auto) 0.3 0-0.8 10 ^3/uL Basophils # (Auto) 0 0-0.2 10 ^3/uL Nucleated Red Blood Cells 0.1 % Test 04/09/25 12:44 04/09/25 07:53 04/09/25 02:34 Range/Units Ammonia < 10 L 11-32 umol/L Beta-Hydroxybutyric Acid 1.155 H < 0.4 mmol/L Thyroid Stimulating Hormone (TSH) 0.88 0.55-4.78 uIU/mL POC Glucose 112 H 70-106 mg/dl Magnesium Level 2.2 1.6-2.6 mg/dL Creatine Kinase 24 L 46-171 U/L Salicylates Level < 3.0 -30 mg/dL Acetaminophen Level < 2.0 L 10.0-20.0 UG/ML Plasma/Serum Blood Alcohol < 3.0 <10 mg/dL Microbiology Date/Time Source Procedure Growth Status 04/09/25 02:37 Blood Blood Culture - Preliminary NO GROWTH AFTER 48 HOURS OF INCUBATION. Resulted Assessment 3.9 cm right mid pole renal mass Plan/Recommendation MRI Renal mass protocol as recommended by radiology Plan discussed with: Other MAGNOLIA GUILLERMO MD Apr 11, 2025 08:29
--- NOTE | 2025-04-11 11:01 | DVHPN2 ---
Subjective Patient is alert oriented only to person. Still confused. Unknown baseline. Reviewed: H&P Changes from previous H/P or p: No Changes General: Per HPI Objective Vitals Vital Signs Date Time Temp Pulse Resp B/P (MAP) Pulse Ox O2 Delivery O2 Flow Rate FiO2 04/11/25 05:00 97.8 60 17 128/76 (93) 96 97.8 04/10/25 20:00 Room Air* 0 21 Intake/Output Intake and Output 04/11/25 07:00 Intake Total 1056 ml Output Total 400 ml Balance 656 ml Intake Oral 270 ml IV Total 786 ml Output Urine Total 400 ml Exam GEN: Healthy appearing, well-developed, NAD. HEENT: NC/AT; MMM. CV: RRR, no m/r/g. LUNGS: Distant breath sounds with faint end expiratory wheeze. ABD: Soft, NT/ND, NBS, no masses or organomegaly. EXT: skin Warm, well perfused. no rashes. No clubbing, cyanosis, or edema. NEURO: Ambulating with no limitations. No focal deficits. Medications Current Medications Medications Dose Ordered Sig/Stefan Route Start Time Stop Time Status Last Admin Dose Admin Ondansetron HCl 4 mg Q4HP PRN IV 04/09/25 04:30 04/09/25 21:42 4 MG Nitroglycerin 0.4 mg Q5MINP PRN SL 04/09/25 04:30 Morphine Sulfate 2 mg Q30M PRN IV 04/09/25 04:30 04/09/25 21:41 2 MG Folic Acid 1 mg DAILY PO 04/09/25 10:00 04/11/25 09:34 1 MG Thiamine HCl 100 mg DAILY PO 04/09/25 10:00 04/11/25 09:33 100 MG Ceftriaxone Sodium 50 ml @ 100 mls/hr DAILY@09 IV 04/10/25 09:00 04/11/25 09:33 100 MLS/HR Dextrose 1,000 ml @ 100 mls/hr Q10H IV 04/09/25 11:15 04/11/25 01:32 100 MLS/HR Acetaminophen/ Hydrocodone Bitart 1 tab Q6HPRN PRN PO 04/10/25 20:15 04/10/25 21:40 1 TAB Potassium Chloride 100 ml @ 50 mls/hr Q2H IV 04/11/25 08:15 04/11/25 12:14 Laboratory Results Laboratory Tests 04/10/25 06:24 04/11/25 05:41 Chemistry Test 04/10/25 14:25 04/11/25 05:41 Calcium Level 9.1 mg/dL (8.7-10.4) 9.1 mg/dL (8.7-10.4) Albumin 3.2 g/dL (3.2-4.8) Total Protein 5.2 g/dL (5.7-8.2) L Coagulation Test 04/10/25 14:25 Prothrombin Time 13.0 sec (9.3-11.8) H Prothrombin Time INR 1.25 (0.9-1.15) H LFT Test 04/11/25 05:41 Alanine Aminotransferase (ALT) 13 U/L (7-40) Alkaline Phosphatase 48 U/L (46-116) Aspartate Amino Transferase (AST) 19 U/L (<34) Total Bilirubin 0.4 mg/dL (0.2-1.0) Urinalysis Test 04/10/25 07:35 Urine Color Light-yellow (Yellow) Urine Clarity Turbid (Clear) H Urine pH 5.5 (5.0-9.0) Urine Specific [place] 1.016 (1.001-1.035) Urine Protein Negative (Negative) Urine Ketones Negative (Negative) Urine Blood Trace /uL (Negative) H Urine Nitrite Negative (Negative) Urine Bilirubin Negative (Negative) Urine Urobilinogen Normal mg/dL (Negative) Urine Leukocyte Esterase 3+ /uL (Negative) Urine RBC 2 /hpf (0 - 3) Urine WBC Clumps Present /hpf (None Seen) Urine Microscopic WBC 93 /HPF (0-3) H Urine Squamous Epithelial Cells None seen /hpf (<5) Urine Bacteria Few /hpf (None Seen) H Urine Creatinine 96.56 mg/dL (30.0-125.0) Urine Sodium 59 mmol/L (40-220) Urine Glucose Normal mg/dL (Normal) Microbiology Microbiology Date/Time Source Procedure Growth Status 04/09/25 02:37 Blood Blood Culture - Preliminary NO GROWTH AFTER 48 HOURS OF INCUBATION. Resulted Labs and/or images reviewed: Labs reviewed by me, Image(s) reviewed by me Assessment/Plan Assessment/Plan 04/09 patient is A&O x1 only. Lives alone. with toxic metabolic encephalopathy. She has history of AFib, prediabetes, alcohol abuse. She was alone at home down for unknown time. No urine at this point. We will continue ceftriaxone. We will get more lab workup found hypernatremic and MARK on? CKD. We will do ammonia, TSH. We will change fluids to D5W at 100 cc/hour. Give 1 time thiamine IV injection. Creatinine is not improving significantly we will get FeNA and kidney ultrasound. Likely a CKD and probably needs Nephrology.. Differential includes hypernatremia,? Alcohol related/withdrawal, MARK uremia, infection? UTI no urine yet, dehydration, dementia. 04/10- patient A&O times 2-3, improving. She lives alone and confirms it. He has a who not in contact with him. He is denying alcohol and smoking. Hypernatremia improving we will continue IV fluids. MARK appears to be resolved and now likely baseline CKD level, renal ultrasound showing possible renal mass. We will consult Nephrology. TSH and ammonia are unconcerning. Gap was found yesterday and workup shows mixed with beta hydroxy butyrate positive and lactic acidosis elevated. We will repeat these labs and continue IV fluids D5W 100 cc/hour. Continue IV antibiotics for UTI ceftriaxone. 04/11 patient is A&O times 1-2 again today. Patient has waxing waning orientation in mentation. We will look for reversible causes. Labs are stabilizing. Lactic acidosis resolved. It is not clear if patient has clear intact biliary to make decisions and decision-making capacity. Patient likely needs to be intermediate care in [facility] or similar. We will follow up with social workers. Hypernatremia 155 still high nephrology on board continuing D5W 100 cc/hour. Urology consulted for renal mass right side. MRI renal needed. PT consulted. Contacted Elyse listed as emergency contact for patient, she reports that son Mir is the only local relative in the area who lives in [place], Mir Weber phone [phone] we will hear 4th be primary contact. agrees that patient needs ongoing care to ensure patient is getting adequate nutrition and daily care. We will consult social for placement as patient is not able to make decisions for himself at this moment. We will get bladder scan to rule out urinary obstruction Diagnosis: Acute toxic metabolic encephalopathy due to below Hypernatremia History of alcohol abuse,? Alcohol withdrawal MARK on CKD? MARK due to VMN Thiamine deficiency? Wernicke's encephalopathy? Dehydration Infection UTI likely Anion gap metabolic acidosis Starvation ketoacidosis Lactic acidosis AFib Prediabetes Plan: -nephrology consult -D5W 100 cc/hour -IV antibiotics ceftriaxone -aspiration precautions -sitter one-to-one -social consult for home safety eval - continue follow up with lactic acidosis - diet renal - PT eval Renal diet DVT prophylaxis-Lovenox GI prophylaxis PPI Med surge Full code Plan discussed with: Patient My Orders Orders - EFREN PELAYO MD Procedure Category Date Status Time * Audit Mgr CONS 04/10/25 Transmitted Consult Pt Request For Service PT 04/10/25 Logged 11:30 Discontinue Tele CHAR 04/11/25 In Process 09:59 Transfer Orders XFER 04/11/25 Transmitted 09:59 Vitamin B12 LAB 04/11/25 Transmitted 13:00 Basic Metabolic Panel LAB 04/11/25 Transmitted 13:00 Magnesium LAB 04/11/25 Transmitted 13:00 Phosphorus LAB 04/11/25 Transmitted 13:00 Date of Service: Apr 11, 2025 Billing Provider: ERFEN PELAYO MD Common Visit Codes: [id number] INP/OBS CARE(HIGH) EFREN PELAYO MD Apr 11, 2025 11:01
[2025-04-11] MEDS: POTASSIUM CHL 20MEQ/100ML 100 ML IV SCH (11:46)
[2025-04-11] MEDS: MULTIPLE VITAMINS W/ MINERALS TAB PO ONE (11:46)
[2025-04-11 13:37] LABS: Anion Gap 13 (5-15)
[2025-04-11 13:42] LABS: BUN/Creatinine Ratio 19.7 (10.0-20.0)
[2025-04-11 13:43] LABS: Blood Urea Nitrogen 31 mg/dL (9-23); Calcium 8.7 mg/dL (8.7-10.4); Carbon Dioxide 20 mmol/L (20-31); Chloride 117 mmol/L (98-107); Glucose 114 mg/dL (74-106); Magnesium 1.3 mg/dL (1.6-2.6); Potassium 3.1 mmol/L (3.5-5.1); Sodium 150 mmol/L (136-145)
[2025-04-11 13:44] LABS: Phosphorus 3.2 mg/dL (2.4-5.1)
[2025-04-11] MEDS: MAGNESIUM SULFATE 1GM/100ML 100 ML IV ONE (15:55)
--- NOTE | 2025-04-11 17:47 | DVHPN2 ---
Progress Note Date Seen: Apr 11, 2025 Medical Necessity Reason Pt with a Central, PICC or Fol: Yes The following are medically ne: [place] Catheter Subjective Patient reports: No new complaints, Feels better Review of Systems: Deferred Objective vital signs Vital Sign Date Time Temp Pulse Resp B/P (MAP) Pulse Ox O2 Delivery O2 Flow Rate FiO2 04/11/25 17:00 97.4 60 17 101/60 (74) 98 97.4 04/11/25 08:00 Room Air* 0 21 Total Intake and Output 04/10/25 04/10/25 04/11/25 15:00 23:00 07:00 Intake Total 50 ml 856 ml 150 ml Output Total 100 ml 300 ml Balance 50 ml 756 ml -150 ml medications Current Medications Medications Dose Ordered Sig/Stefan Route Start Time Stop Time Status Last Admin Dose Admin Ondansetron HCl 4 mg Q4HP PRN IV 04/09/25 04:30 04/09/25 21:42 4 MG Nitroglycerin 0.4 mg Q5MINP PRN SL 04/09/25 04:30 Morphine Sulfate 2 mg Q30M PRN IV 04/09/25 04:30 04/09/25 21:41 2 MG Folic Acid 1 mg DAILY PO 04/09/25 10:00 04/11/25 09:34 1 MG Thiamine HCl 100 mg DAILY PO 04/09/25 10:00 04/11/25 09:33 100 MG Ceftriaxone Sodium 50 ml @ 100 mls/hr DAILY@09 IV 04/10/25 09:00 04/11/25 09:33 100 MLS/HR Dextrose 1,000 ml @ 100 mls/hr Q10H IV 04/09/25 11:15 04/11/25 11:46 100 MLS/HR Acetaminophen/ Hydrocodone Bitart 1 tab Q6HPRN PRN PO 04/10/25 20:15 04/10/25 21:40 1 TAB Multivitamins/ Minerals 1 tab DAILY PO 04/12/25 10:00 laboratory and microbiology Laboratory Tests 04/11/25 13:06 04/10/25 06:24 Test 04/11/25 13:06 Range/Units Serum Glucose 114 H 74-106 mg/dL Microbiology Date/Time Source Procedure Growth Status 04/09/25 02:37 Blood Blood Culture - Preliminary NO GROWTH AFTER 48 HOURS OF INCUBATION. Resulted Problem List/Assessment/Plan Problem List/Assessment/Plan Acute kidney injury likely hemodynamic mediated in the setting of dehydration Hypernatremia Baseline Chronic kidney disease 3A Encephalopathy Renal mass Hypokalemia Recommendations Agree with D5W IV Urology consult for renal mass--urology recommending MRI renal mass protocol---okay to get MRI contrast as long as GFR above 40 Renal function better since admission Potassium replace, sodium better Plan discussed with: Patient JIMMY KHALIL MD Apr 11, 2025 17:47
[2025-04-11] MEDS: POTASSIUM CHLORIDE 40 MEQ, LIDOCAINE 1% (LOCAL ANESTH.) 4 ML in SODIUM CHL 0.9% 250 ML IV ONE (17:53)
[2025-04-12] VITALS (9 sets, daily range): BP systolic 114–155; BP diastolic 60–102; PULSE 55–72; RESP 16–18; TEMP 98–98.5; O2SAT 94–98
[2025-04-12] MEDS: MULTIPLE VITAMINS W/ MINERALS TAB PO SCH (09:33)
[2025-04-12 10:29] LABS: Anion Gap 11 (5-15); Calcium 9.4 mg/dL (8.7-10.4)
[2025-04-12 10:34] LABS: BUN/Creatinine Ratio 20.5 (10.0-20.0); Blood Urea Nitrogen 25 mg/dL (9-23); Carbon Dioxide 20 mmol/L (20-31); Chloride 114 mmol/L (98-107); Glucose 125 mg/dL (74-106); Potassium 3.4 mmol/L (3.5-5.1); Sodium 145 mmol/L (136-145)
--- NOTE | 2025-04-12 10:43 | DVHPN2 ---
Subjective Patient is alert oriented only to person. Still confused. Unknown baseline. Reviewed: H&P Changes from previous H/P or p: No Changes General: Per HPI Objective Vitals Vital Signs Date Time Temp Pulse Resp B/P (MAP) Pulse Ox O2 Delivery O2 Flow Rate FiO2 04/12/25 08:00 57 16 95 Room Air* 0 21 04/12/25 05:00 98.5 114/66 (82) 98.5 Intake/Output Intake and Output 04/12/25 07:00 Intake Total 1950 ml Output Total 450 ml Balance 1500 ml Intake Oral 260 ml IV Total 1690 ml Output Urine Total 450 ml Exam GEN: Healthy appearing, well-developed, NAD. HEENT: NC/AT; MMM. CV: RRR, no m/r/g. LUNGS: Distant breath sounds with faint end expiratory wheeze. ABD: Soft, NT/ND, NBS, no masses or organomegaly. EXT: skin Warm, well perfused. no rashes. No clubbing, cyanosis, or edema. NEURO: Ambulating with no limitations. No focal deficits. Medications Current Medications Medications Dose Ordered Sig/Stefan Route Start Time Stop Time Status Last Admin Dose Admin Ondansetron HCl 4 mg Q4HP PRN IV 04/09/25 04:30 04/09/25 21:42 4 MG Nitroglycerin 0.4 mg Q5MINP PRN SL 04/09/25 04:30 Morphine Sulfate 2 mg Q30M PRN IV 04/09/25 04:30 04/09/25 21:41 2 MG Folic Acid 1 mg DAILY PO 04/09/25 10:00 04/12/25 09:33 1 MG Thiamine HCl 100 mg DAILY PO 04/09/25 10:00 04/12/25 09:33 100 MG Ceftriaxone Sodium 50 ml @ 100 mls/hr DAILY@09 IV 04/10/25 09:00 04/12/25 09:33 100 MLS/HR Dextrose 1,000 ml @ 100 mls/hr Q10H IV 04/09/25 11:15 04/12/25 09:33 100 MLS/HR Acetaminophen/ Hydrocodone Bitart 1 tab Q6HPRN PRN PO 04/10/25 20:15 04/10/25 21:40 1 TAB Multivitamins/ Minerals 1 tab DAILY PO 04/12/25 10:00 04/12/25 09:33 1 TAB Laboratory Results Laboratory Tests 04/10/25 06:24 04/12/25 10:00 Chemistry Test 04/11/25 13:06 04/12/25 10:00 Calcium Level 8.7 mg/dL (8.7-10.4) 9.4 mg/dL (8.7-10.4) Magnesium Level 1.3 mg/dL (1.6-2.6) L Phosphorus Level 3.2 mg/dL (2.4-5.1) Urinalysis Test 04/10/25 07:35 Urine Color Light-yellow (Yellow) Urine Clarity Turbid (Clear) H Urine pH 5.5 (5.0-9.0) Urine Specific [place] 1.016 (1.001-1.035) Urine Protein Negative (Negative) Urine Ketones Negative (Negative) Urine Blood Trace /uL (Negative) H Urine Nitrite Negative (Negative) Urine Bilirubin Negative (Negative) Urine Urobilinogen Normal mg/dL (Negative) Urine Leukocyte Esterase 3+ /uL (Negative) Urine RBC 2 /hpf (0 - 3) Urine WBC Clumps Present /hpf (None Seen) Urine Microscopic WBC 93 /HPF (0-3) H Urine Squamous Epithelial Cells None seen /hpf (<5) Urine Bacteria Few /hpf (None Seen) H Urine Creatinine 96.56 mg/dL (30.0-125.0) Urine Sodium 59 mmol/L (40-220) Urine Glucose Normal mg/dL (Normal) Microbiology Microbiology Date/Time Source Procedure Growth Status 04/09/25 02:37 Blood Blood Culture - Preliminary NO GROWTH AFTER 72 HOURS OF INCUBATION. Resulted Labs and/or images reviewed: Labs reviewed by me, Image(s) reviewed by me Assessment/Plan Assessment/Plan 04/09 patient is A&O x1 only. Lives alone. with toxic metabolic encephalopathy. She has history of AFib, prediabetes, alcohol abuse. She was alone at home down for unknown time. No urine at this point. We will continue ceftriaxone. We will get more lab workup found hypernatremic and MARK on? CKD. We will do ammonia, TSH. We will change fluids to D5W at 100 cc/hour. Give 1 time thiamine IV injection. Creatinine is not improving significantly we will get FeNA and kidney ultrasound. Likely a CKD and probably needs Nephrology.. Differential includes hypernatremia,? Alcohol related/withdrawal, MARK uremia, infection? UTI no urine yet, dehydration, dementia. 04/10- patient A&O times 2-3, improving. She lives alone and confirms it. He has a who not in contact with him. He is denying alcohol and smoking. Hypernatremia improving we will continue IV fluids. MARK appears to be resolved and now likely baseline CKD level, renal ultrasound showing possible renal mass. We will consult Nephrology. TSH and ammonia are unconcerning. Gap was found yesterday and workup shows mixed with beta hydroxy butyrate positive and lactic acidosis elevated. We will repeat these labs and continue IV fluids D5W 100 cc/hour. Continue IV antibiotics for UTI ceftriaxone. 04/11 patient is A&O times 1-2 again today. Patient has waxing waning orientation in mentation. We will look for reversible causes. Labs are stabilizing. Lactic acidosis resolved. It is not clear if patient has clear intact biliary to make decisions and decision-making capacity. Patient likely needs to be long term care in [facility]term or similar. We will follow up with social workers. Hypernatremia 155 still high nephrology on board continuing D5W 100 cc/hour. Urology consulted for renal mass right side. MRI renal needed. PT consulted. Contacted Elyse listed as emergency contact for patient, she reports that son Mir is the only local relative in the area who lives in [place], Mir Weber phone [phone] we will now be primary contact. agrees that patient needs ongoing care to ensure patient is getting adequate nutrition and daily care. We will consult social for placement as patient is not able to make decisions for himself at this moment. We will get bladder scan to rule out urinary obstruction 04/12 patient remains to be A&O x1 not oriented to place or time. He is still very slow in thought process. Although he is pleasant and compliant with visit. Patient's hypernatremia is resolving nephrology following. We will get right renal mass MRI renal protocol. Pending PT eval we will order PT eval again. Diagnosis: Acute toxic metabolic encephalopathy due to below Hypernatremia History of alcohol abuse,? Alcohol withdrawal MARK on CKD? MARK due to VMN Thiamine deficiency? Wernicke's encephalopathy? Dehydration Infection UTI likely Anion gap metabolic acidosis Starvation ketoacidosis Lactic acidosis AFib Prediabetes Plan: -nephrology consult -D5W 100 cc/hour -IV antibiotics ceftriaxone Social consulted for placement -aspiration precautions -sitter one-to-one -social consult for home safety eval - continue follow up with lactic acidosis resolved, no further lactic draws - diet renal MRI renal mass right, renal protocol - PT eval Renal diet DVT prophylaxis-Lovenox GI prophylaxis PPI Med surge Full code Plan discussed with: Patient My Orders Orders - EFREN PELAYO MD Procedure Category Date Status Time Multiple Vitamin W PHA 04/12/25 In Process Mineral Tab (Mvi W/ M 10:00 Bladder Scan ORDERS 04/11/25 Transmitted 11:37 Mri Abdomen No MRI 04/12/25 Logged Contrast 09:56 Pt Request For Service PT 04/12/25 Transmitted 10:38 Date of Service: Apr 12, 2025 Billing Provider: EFREN PELAYO MD Common Visit Codes: [id number] INP/OBS CARE(HIGH) EFREN PELAYO MD Apr 12, 2025 10:43
--- NOTE | 2025-04-12 13:21 | DVH ---
PROCEDURE: MRI MRI ABDOMEN NO CONTRAST Indication: renal protocol, R renal mass evaluation COMPARISON: Renal ultrasound from 04/09/2025 TECHNIQUE: Multiplanar multisequence images of the brain are obtained. FINDINGS: Limited evaluation without contrast. No identifiable renal mass. No hydronephrosis. Bilateral peripelvic cysts. Adrenal glands, spleen unremarkable. Cholelithiasis. Contracted gallbladder Common bile duct measures 6 mm. Pancreatic duct measures 4 mm. No T2 hyperintense lesions in the liver. Stomach is partially distended. Imaged small bowel loops normal in caliber. Colonic diverticular dis ease. IMPRESSION: Limited evaluation without contrast. No identifiable renal mass. No hydronephrosis Cholelithiasis. Duct pancreatic duct measuring 4 mm. Correlate clinically to exclude obstructing ampullary/ pancreat ic head etiology.
--- NOTE | 2025-04-12 15:57 | DVHPN2 ---
Progress Note Date Seen: Apr 12, 2025 Medical Necessity Reason Pt with a Central, PICC or Fol: Yes The following are medically ne: Bullard Catheter Subjective Patient reports: No new complaints Review of Systems: Deferred Objective vital signs Vital Sign Date Time Temp Pulse Resp B/P (MAP) Pulse Ox O2 Delivery O2 Flow Rate FiO2 04/12/25 08:00 57 16 95 Room Air* 0 21 04/12/25 05:00 98.5 114/66 (82) 98.5 Total Intake and Output 04/11/25 04/11/25 04/12/25 15:00 23:00 07:00 Intake Total 1050 ml 800 ml 100 ml Output Total 250 ml 200 ml Balance 1050 ml 550 ml -100 ml medications Current Medications Medications Dose Ordered Sig/Stefan Route Start Time Stop Time Status Last Admin Dose Admin Ondansetron HCl 4 mg Q4HP PRN IV 04/09/25 04:30 04/09/25 21:42 4 MG Nitroglycerin 0.4 mg Q5MINP PRN SL 04/09/25 04:30 Morphine Sulfate 2 mg Q30M PRN IV 04/09/25 04:30 04/09/25 21:41 2 MG Folic Acid 1 mg DAILY PO 04/09/25 10:00 04/12/25 09:33 1 MG Thiamine HCl 100 mg DAILY PO 04/09/25 10:00 04/12/25 09:33 100 MG Ceftriaxone Sodium 50 ml @ 100 mls/hr DAILY@09 IV 04/10/25 09:00 04/12/25 09:33 100 MLS/HR Dextrose 1,000 ml @ 100 mls/hr Q10H IV 04/09/25 11:15 04/12/25 09:33 100 MLS/HR Acetaminophen/ Hydrocodone Bitart 1 tab Q6HPRN PRN PO 04/10/25 20:15 04/10/25 21:40 1 TAB Multivitamins/ Minerals 1 tab DAILY PO 04/12/25 10:00 04/12/25 09:33 1 TAB Examination: GENERAL:Abnormal, MSK:Abnormal, NEURO:Normal laboratory and microbiology Laboratory Tests 04/12/25 10:00 04/10/25 06:24 Test 04/12/25 10:00 Range/Units Serum Glucose 125 H 74-106 mg/dL Microbiology Date/Time Source Procedure Growth Status 04/09/25 02:37 Blood Blood Culture - Preliminary NO GROWTH AFTER 72 HOURS OF INCUBATION. Resulted Problem List/Assessment/Plan Problem List/Assessment/Plan Acute kidney injury likely hemodynamic mediated in the setting of dehydration Hypernatremia Baseline Chronic kidney disease 3A Encephalopathy Renal mass Hypokalemia Recommendations ok to dc D5W IV [facility] Urology consult for renal mass--urology recommending MRI renal mass protocol---okay to get MRI contrast as long as GFR above 40--defer to urology Renal function better since admission Potassium replace, sodium better I will sign off this case ,,pls reconsult if needed d/w hospitalist Plan discussed with: Patient JIMMY KHALIL MD Apr 12, 2025 15:57
[2025-04-13] VITALS (7 sets, daily range): BP systolic 107–164; BP diastolic 70–98; PULSE 48–85; RESP 16–18; TEMP 97.9–98.4; O2SAT 96–100
[2025-04-13 06:20] LABS: Potassium 3.7 mmol/L (3.5-5.1); Sodium 145 mmol/L (136-145)
[2025-04-13 06:21] LABS: Anion Gap 14 (5-15)
[2025-04-13 06:22] LABS: Calcium 9.3 mg/dL (8.7-10.4)
[2025-04-13 06:24] LABS: Carbon Dioxide 18 mmol/L (20-31); Chloride 113 mmol/L (98-107)
[2025-04-13 06:27] LABS: Blood Urea Nitrogen 16 mg/dL (9-23); Glucose 85 mg/dL (74-106)
--- NOTE | 2025-04-13 13:54 | DVH ---
PROCEDURE: MRI MRI ABDOMEN W AND WO Indication: WITH con, R renal mass eval. Renal protocol COMPARISON: MRI MRI ABDOMEN NO CONTRAST on DOS: 04/12/25 TECHNIQUE: Multiplanar multisequence images of the abdomen were obtained with and without contrast. FINDINGS: Adrenal glands, spleen, pancreas unremarkable. Cholelithiasis. Contracted gallbladder. No enhancing hepatic lesion. The kidneys demonstrate no hydronephrosis. No enhancing renal mass. 8 mm left renal cyst. Aortic atherosclerotic disease with mild eccentric mural wall thrombus. Right lower lobe pulmonary nodular lesion versus consolidation/ atelectasis/ scarring measuring 2.4 x 1.0 cm. IMPRESSION: No evidence for renal mass. Contracted gallbladder. Cholelithiasis. Aortic atherosclerotic disease and mild eccentric mural wall thrombus. Right lower lobe pulmonary nodular lesion versus consolidation/atelectasis / scarring measuring 2.4 x [address] chest to further evaluate.
--- NOTE | 2025-04-13 14:51 | DVHDS2 ---
Discharge Summary Date of Admission Apr 09, 2025 at 04:18 Date of Discharge: Apr 13, 2025 Labs/Diagnostic Data: Laboratory Results Test 04/13/25 05:12 04/11/25 13:06 04/11/25 05:41 04/10/25 14:25 Sodium Level 145 mmol/L (136-145) Potassium Level 3.7 mmol/L (3.5-5.1) Chloride Level 113 mmol/L (98-107) Carbon Dioxide Level 18 mmol/L (20-31) Anion Gap 14 (5-15) Blood Urea Nitrogen 16 mg/dL (9-23) Creatinine 1.07 mg/dL (0.700-1.30) Glomerular Filtration Rate Calc 71 mL/min (>90) BUN/Creatinine Ratio 15.0 (10.0-20.0) Serum Glucose 85 mg/dL (74-106) Calcium Level 9.3 mg/dL (8.7-10.4) Phosphorus Level 3.2 mg/dL (2.4-5.1) Magnesium Level 1.3 mg/dL (1.6-2.6) Vitamin B12 Level 483 pg/mL (211-911) Total Bilirubin 0.4 mg/dL (0.2-1.0) Aspartate Amino Transferase (AST) 19 U/L (<34) Alanine Aminotransferase (ALT) 13 U/L (7-40) Alkaline Phosphatase 48 U/L (46-116) Total Protein 5.2 g/dL (5.7-8.2) Albumin 3.2 g/dL (3.2-4.8) Prothrombin Time 13.0 sec (9.3-11.8) Prothrombin Time INR 1.25 (0.9-1.15) Lactic Acid Level 1.8 mmol/L (0.4-2.0) Test 04/10/25 07:35 04/10/25 06:24 04/09/25 12:44 04/09/25 07:53 Urine Color Light-yellow (Yellow) Urine Clarity Turbid (Clear) Urine pH 5.5 (5.0-9.0) Urine Specific [place] 1.016 (1.001-1.035) Urine Protein Negative (Negative) Urine Ketones Negative (Negative) Urine Blood Trace /uL (Negative) Urine Nitrite Negative (Negative) Urine Bilirubin Negative (Negative) Urine Urobilinogen Normal mg/dL (Negative) Urine Leukocyte Esterase 3+ /uL (Negative) Urine RBC 2 /hpf (0 - 3) Urine WBC Clumps Present /hpf (None Seen) Urine Microscopic WBC 93 /HPF (0-3) Urine Squamous Epithelial Cells None seen /hpf (<5) Urine Bacteria Few /hpf (None Seen) Urine Creatinine 96.56 mg/dL (30.0-125.0) Urine Sodium 59 mmol/L (40-220) Urine Glucose Normal mg/dL (Normal) Urine Opiates Screen Neg (NEGATIVE) Urine Fentanyl Screen Neg (NEGATIVE) Urine Barbiturates Screen Neg (NEGATIVE) Urine Phencyclidine Screen Neg (NEGATIVE) Urine Amphetamines Screen Neg (NEGATIVE) Urine Benzodiazepines Screen Neg (NEGATIVE) Urine Cocaine Screen Neg (NEGATIVE) Urine Cannabinoids Screen Neg (NEGATIVE) White Blood Count 8.4 10^3/uL (4.4-10.8) Red Blood Count 3.52 10^6/uL (4.5-5.90) Hemoglobin 11.9 g/dL (13.5-17.5) Hematocrit 34.3 % (41.0-53.0) Mean Corpuscular Volume 97.4 fL (80.0-100.0) Mean Corpuscular Hemoglobin 33.7 pg (28.0-32.0) Mean Corpuscular Hemoglobin Concent 34.6 g/dL (32.0-36.0) Red Cell Distribution Width 14.7 % (11.8-14.3) Platelet Count 233 10^3/uL (140-450) Mean Platelet Volume 8.4 fL (6.9-10.8) Neutrophils (%) (Auto) 65.8 % (37.0-80.0) Lymphocytes (%) (Auto) 26.2 % (10.0-50.0) Monocytes (%) (Auto) 3.8 % (0.0-12.0) Eosinophils (%) (Auto) 3.9 % (0.0-7.0) Basophils (%) (Auto) 0.3 % (0.0-2.0) Neutrophils # (Auto) 5.5 10 ^3/uL (1.6-8.6) Lymphocytes # (Auto) 2.2 10 ^3/uL (0.4-5.4) Monocytes # (Auto) 0.3 10 ^3/uL (0-1.3) Eosinophils # (Auto) 0.3 10 ^3/uL (0-0.8) Basophils # (Auto) 0 10 ^3/uL (0-0.2) Nucleated Red Blood Cells 0.1 % Ammonia < 10 umol/L (11-32) Beta-Hydroxybutyric Acid 1.155 mmol/L (< 0.4) Thyroid Stimulating Hormone (TSH) 0.88 uIU/mL (0.55-4.78) POC Glucose 112 mg/dl (70-106) Test 04/09/25 02:34 Creatine Kinase 24 U/L (46-171) Salicylates Level < 3.0 mg/dL (-30) Acetaminophen Level < 2.0 UG/ML (10.0-20.0) Plasma/Serum Blood Alcohol < 3.0 mg/dL (<10) Other Laboratory Tests 04/13/25 05:12 04/10/25 06:24 Brief Hx & Hospital Course: Summary: 04/09 patient is A&O x1 only. Lives alone. with toxic metabolic encephalopathy. She has history of AFib, prediabetes, alcohol abuse. She was alone at home down for unknown time. No urine at this point. We will continue ceftriaxone. We will get more lab workup found hypernatremic and MARK on? CKD. We will do ammonia, TSH. We will change fluids to D5W at 100 cc/hour. Give 1 time thiamine IV injection. Creatinine is not improving significantly we will get FeNA and kidney ultrasound. Likely a CKD and probably needs Nephrology.. Differential includes hypernatremia,? Alcohol related/withdrawal, MARK uremia, infection? UTI no urine yet, dehydration, dementia. 04/10- patient A&O times 2-3, improving. She lives alone and confirms it. He has a who not in contact with him. He is denying alcohol and smoking. Hypernatremia improving we will continue IV fluids. MARK appears to be resolved and now likely baseline CKD level, renal ultrasound showing possible renal mass. We will consult Nephrology. TSH and ammonia are unconcerning. Gap was found yesterday and workup shows mixed with beta hydroxy butyrate positive and lactic acidosis elevated. We will repeat these labs and continue IV fluids D5W 100 cc/hour. Continue IV antibiotics for UTI ceftriaxone. 04/11 patient is A&O times 1-2 again today. Patient has waxing waning orientation in mentation. We will look for reversible causes. Labs are stabilizing. Lactic acidosis resolved. It is not clear if patient has clear intact biliary to make decisions and decision-making capacity. Patient likely needs to be correction care in [facility] or similar. We will follow up with social workers. Hypernatremia 155 still high nephrology on board continuing D5W 100 cc/hour. Urology consulted for renal mass right side. MRI renal needed. PT consulted. Contacted Elyse listed as emergency contact for patient, she reports that bryan Hester is the only local relative in the area who lives in [place], [place] phone [phone] we will now be primary contact. agrees that patient needs ongoing care to ensure patient is getting adequate nutrition and daily care. We will consult social for placement as patient is not able to make decisions for himself at this moment. We will get bladder scan to rule out urinary obstruction. 04/12 patient remains to be A&O x1 not oriented to place or time. He is still very slow in thought process. Although he is pleasant and compliant with visit. Patient's hypernatremia is resolving nephrology following. We will get right renal mass MRI renal protocol. Pending PT eval we will order PT eval again. 04/13 - AOx1 again. hypernatremia has resolved. today there is MRI with contrast renal protocol shows no evidence of renal mass. communicated with bryan Hester who is in agreement with placement to [facility] for ongoing care given patient's advanced dementia and inability to make decisions. MRI does find right lower lobe nodule 2.4 cm which we will need outpatient follow up. There was unintentional needlestick care worker, we will order needle stick protocol HIV antibody, hepatitis antibody, trep antibody. Diagnosis: Acute toxic metabolic encephalopathy due to below Hypernatremia, resolved, due to dehydration History of alcohol abuse, Alcohol withdrawal wernicke encephalopathy possible dementia MARK due to VMN, resolved Thiamine deficiency possible Dehydration Infection UTI likely Anion gap metabolic acidosis Resolved Starvation ketoacidosis resolved Lactic acidosis resolved AFib Prediabetes Plan: - Transfer to SNF for PT rehab - patient does not have decision-making capacity, family in agreement for rehab and [facility] placement thereafter - continue thiamine daily, multivitamin daily, high-protein meal replacement drink twice daily with meals, - follow up with PCP and outpatient neurology referral for dementia. Condition at Discharge: Fair Final Diagnosis/Problems List Acute toxic metabolic encephalopathy due to below Hypernatremia, resolved, due to dehydration History of alcohol abuse, Alcohol withdrawal wernicke encephalopathy possible dementia MARK due to VMN, resolved Thiamine deficiency possible Dehydration Infection UTI likely Anion gap metabolic acidosis Resolved Starvation ketoacidosis resolved Lactic acidosis resolved AFib Prediabetes Discharge Disposition: [facility] Facility Discharge Instruct/Medications Diet: Regular Activity: No Restrictions, As Tolerated Follow Up/Referral: See below Medications: See below Discharge Statement: "Patient was advised to return to the ER or call 911 if any headaches, dizziness, shortness of breath, chest pain, abdominal pain, bleeding, fevers, or worsening of medical condition. Patient was counseled about treatment plan, medications, possible side effects, patientverbalized understanding. All questions were answered to the best of my ability. This discharge took greater then 30 minutes in planning, reviewing documentation, counseling the patient, and discussing with other team members." Date of Service: Apr 13, 2025 Billing Provider: EFREN PELAYO MD Common Visit Codes: [id number] DISCH DAY >30min EFREN PELAYO MD Apr 13, 2025 14:51
[2025-04-13] MEDS ORDERED: Ensure HIGH Protein Chocolate 8oz Bottle PO SCH (18:00)
[2025-04-13] MEDS: Nepro With Carbsteady ButterPecan 8oz Carton PO SCH (18:00)
[2025-04-14] VITALS (7 sets, daily range): BP systolic 115–138; BP diastolic 71–79; PULSE 54–60; RESP 16–18; TEMP 97.8–98.4; O2SAT 96–100
[2025-04-14 06:41] LABS: Calcium 9.7 mg/dL (8.7-10.4); Potassium 3.9 mmol/L (3.5-5.1)
[2025-04-14 06:42] LABS: Anion Gap 10 (5-15); Carbon Dioxide 23 mmol/L (20-31)
[2025-04-14 06:47] LABS: BUN/Creatinine Ratio 15.4 (10.0-20.0); Blood Urea Nitrogen 16 mg/dL (9-23); Glucose 97 mg/dL (74-106)
[2025-04-14 06:55] LABS: Chloride 115 mmol/L (98-107); Sodium 148 mmol/L (136-145)
--- NOTE | 2025-04-14 12:13 | DVHPN2 ---
Subjective covering NAEON, pending sniff bed Reviewed: H&P Changes from previous H/P or p: No Changes General: Per HPI Objective Vitals Vital Signs Date Time Temp Pulse Resp B/P (MAP) Pulse Ox O2 Delivery O2 Flow Rate FiO2 04/14/25 08:41 98.0 58 18 123/73 (90) 99 98.0 04/14/25 08:00 Room Air* 0 21 Intake/Output Intake and Output 04/14/25 07:00 Intake Total 305 ml Output Total 610 ml Balance -305 ml Intake Oral 255 ml IV Total 50 ml Output Urine Total 610 ml Medications Current Medications Medications Dose Ordered Sig/Stefan Route Start Time Stop Time Status Last Admin Dose Admin Ondansetron HCl 4 mg Q4HP PRN IV 04/09/25 04:30 04/09/25 21:42 4 MG Nitroglycerin 0.4 mg Q5MINP PRN SL 04/09/25 04:30 Morphine Sulfate 2 mg Q30M PRN IV 04/09/25 04:30 04/09/25 21:41 2 MG Folic Acid 1 mg DAILY PO 04/09/25 10:00 04/14/25 09:04 1 MG Thiamine HCl 100 mg DAILY PO 04/09/25 10:00 04/14/25 09:04 100 MG Ceftriaxone Sodium 50 ml @ 100 mls/hr DAILY@09 IV 04/10/25 09:00 04/14/25 09:05 100 MLS/HR Dextrose 1,000 ml @ 100 mls/hr Q10H IV 04/09/25 11:15 04/14/25 01:15 100 MLS/HR Acetaminophen/ Hydrocodone Bitart 1 tab Q6HPRN PRN PO 04/10/25 20:15 04/10/25 21:40 1 TAB Multivitamins/ Minerals 1 tab DAILY PO 04/12/25 10:00 04/14/25 09:04 1 TAB Enteral Nutritional Formula 240 ml BIDWM PO 04/13/25 18:00 04/14/25 08:00 240 ML Laboratory Results Laboratory Tests 04/10/25 06:24 04/14/25 05:55 Chemistry Test 04/14/25 05:55 Calcium Level 9.7 mg/dL (8.7-10.4) Urinalysis Test 04/10/25 07:35 Urine Color Light-yellow (Yellow) Urine Clarity Turbid (Clear) H Urine pH 5.5 (5.0-9.0) Urine Specific [place] 1.016 (1.001-1.035) Urine Protein Negative (Negative) Urine Ketones Negative (Negative) Urine Blood Trace /uL (Negative) H Urine Nitrite Negative (Negative) Urine Bilirubin Negative (Negative) Urine Urobilinogen Normal mg/dL (Negative) Urine Leukocyte Esterase 3+ /uL (Negative) Urine RBC 2 /hpf (0 - 3) Urine WBC Clumps Present /hpf (None Seen) Urine Microscopic WBC 93 /HPF (0-3) H Urine Squamous Epithelial Cells None seen /hpf (<5) Urine Bacteria Few /hpf (None Seen) H Urine Creatinine 96.56 mg/dL (30.0-125.0) Urine Sodium 59 mmol/L (40-220) Urine Glucose Normal mg/dL (Normal) Microbiology Microbiology Date/Time Source Procedure Growth Status 04/09/25 02:37 Blood Blood Culture - Final NO GROWTH AFTER 5 DAYS OF INCUBATION. Complete Assessment/Plan Assessment/Plan Acute toxic metabolic encephalopathy due to below Hypernatremia History of alcohol abuse,? Alcohol withdrawal MARK on CKD? MARK due to VMN Thiamine deficiency? Wernicke's encephalopathy? Dehydration Infection UTI likely Anion gap metabolic acidosis Starvation ketoacidosis Lactic acidosis AFib Prediabetes Plan: -nephrology consult -D5W 100 cc/hour -IV antibiotics ceftriaxone Social consulted for placement -aspiration precautions -sitter one-to-one -social consult for home safety eval - continue follow up with lactic acidosis resolved, no further lactic draws - diet renal MRI renal mass right, renal protocol - PT eval Renal diet DVT prophylaxis-Lovenox GI prophylaxis PPI Med surge Full code Plan discussed with: Patient Date of Service: Apr 14, 2025 Billing Provider: HINA ESCOBAR MD Common Visit Codes: [id number] INP/OBS CARE(MOD) HINA ESCOBAR MD Apr 14, 2025 12:13
[2025-04-15] VITALS (7 sets, daily range): BP systolic 120–141; BP diastolic 60–76; PULSE 51–66; RESP 16–20; TEMP 97.6–98.1; O2SAT 93–99
[2025-04-15 06:35] LABS: Anion Gap 11 (5-15); Carbon Dioxide 22 mmol/L (20-31); Potassium 3.7 mmol/L (3.5-5.1); Sodium 143 mmol/L (136-145)
[2025-04-15 06:36] LABS: Calcium 9.3 mg/dL (8.7-10.4)
[2025-04-15 06:38] LABS: Chloride 110 mmol/L (98-107)
[2025-04-15 06:41] LABS: Blood Urea Nitrogen 11 mg/dL (9-23)
[2025-04-15 06:49] LABS: Glucose 129 mg/dL (74-106)
--- NOTE | 2025-04-15 15:35 | DVHPN2 ---
Subjective covering NAEON, pending sniff bed. not finishing meals Reviewed: H&P Changes from previous H/P or p: No Changes General: Per HPI Objective Vitals Vital Signs Date Time Temp Pulse Resp B/P (MAP) Pulse Ox O2 Delivery O2 Flow Rate FiO2 04/15/25 13:18 97.6 51 18 141/74 (96) 98 97.6 04/15/25 08:00 Room Air* 0 21 Intake/Output Intake and Output 04/15/25 07:00 Intake Total 350 ml Output Total 250 ml Balance 100 ml Intake Oral 300 ml IV Total 50 ml Output Urine Total 250 ml # Voids 3 # Bowel Movements 2 Medications Current Medications Medications Dose Ordered Sig/Stefan Route Start Time Stop Time Status Last Admin Dose Admin Ondansetron HCl 4 mg Q4HP PRN IV 04/09/25 04:30 04/09/25 21:42 4 MG Nitroglycerin 0.4 mg Q5MINP PRN SL 04/09/25 04:30 Morphine Sulfate 2 mg Q30M PRN IV 04/09/25 04:30 04/09/25 21:41 2 MG Folic Acid 1 mg DAILY PO 04/09/25 10:00 04/15/25 08:47 1 MG Thiamine HCl 100 mg DAILY PO 04/09/25 10:00 04/15/25 08:47 100 MG Ceftriaxone Sodium 50 ml @ 100 mls/hr DAILY@09 IV 04/10/25 09:00 04/15/25 08:48 100 MLS/HR Dextrose 1,000 ml @ 100 mls/hr Q10H IV 04/09/25 11:15 04/15/25 06:01 100 MLS/HR Acetaminophen/ Hydrocodone Bitart 1 tab Q6HPRN PRN PO 04/10/25 20:15 04/10/25 21:40 1 TAB Multivitamins/ Minerals 1 tab DAILY PO 04/12/25 10:00 04/15/25 08:47 1 TAB Enteral Nutritional Formula 240 ml BIDWM PO 04/13/25 18:00 04/15/25 08:27 240 ML Laboratory Results Laboratory Tests 04/10/25 06:24 04/15/25 05:37 Chemistry Test 04/15/25 05:37 Calcium Level 9.3 mg/dL (8.7-10.4) Urinalysis Test 04/10/25 07:35 Urine Color Light-yellow (Yellow) Urine Clarity Turbid (Clear) H Urine pH 5.5 (5.0-9.0) Urine Specific [place] 1.016 (1.001-1.035) Urine Protein Negative (Negative) Urine Ketones Negative (Negative) Urine Blood Trace /uL (Negative) H Urine Nitrite Negative (Negative) Urine Bilirubin Negative (Negative) Urine Urobilinogen Normal mg/dL (Negative) Urine Leukocyte Esterase 3+ /uL (Negative) Urine RBC 2 /hpf (0 - 3) Urine WBC Clumps Present /hpf (None Seen) Urine Microscopic WBC 93 /HPF (0-3) H Urine Squamous Epithelial Cells None seen /hpf (<5) Urine Bacteria Few /hpf (None Seen) H Urine Creatinine 96.56 mg/dL (30.0-125.0) Urine Sodium 59 mmol/L (40-220) Urine Glucose Normal mg/dL (Normal) Microbiology Microbiology Date/Time Source Procedure Growth Status 04/09/25 02:37 Blood Blood Culture - Final NO GROWTH AFTER 5 DAYS OF INCUBATION. Complete Assessment/Plan Assessment/Plan Acute toxic metabolic encephalopathy due to below Hypernatremia History of alcohol abuse,? Alcohol withdrawal MARK on CKD? MARK due to VMN Thiamine deficiency? Wernicke's encephalopathy? Dehydration Infection UTI likely Anion gap metabolic acidosis Starvation ketoacidosis Lactic acidosis AFib Prediabetes Plan: -nephrology consult -D5W 100 cc/hour -IV antibiotics ceftriaxone Social consulted for placement -aspiration precautions -sitter one-to-one -social consult for home safety eval - continue follow up with lactic acidosis resolved, no further lactic draws - diet renal MRI renal mass right, renal protocol - PT eval add ensure Renal diet DVT prophylaxis-Lovenox GI prophylaxis PPI Med surge Full code Plan discussed with: Other Date of Service: Apr 15, 2025 Billing Provider: HINA ESCOBAR MD Common Visit Codes: [id number] INP/OBS CARE(MOD) HINA ESCOBAR MD Apr 15, 2025 15:35
--- NOTE | 2025-04-15 15:54 | MEDREC ---
[facility] ASP Intervention Section I [facility] ASP Intervention: Review courses of therapy (7 DAYS ON ROCEPHIN FOR UTI - NO LEUKOCYTOSIS PATIENT AFEBRILE PLEASE CONSIDER D/C ANTIBIOTIC IF INFECTION IS NOT MORE A CONCERN) SHARON SIMS PHARMACIST Apr 15, 2025 15:54
[2025-04-15] MEDS: Ensure HIGH Protein Chocolate 8oz Bottle PO SCH (18:00)
[2025-04-16 01:00] VITALS: BP 117/68; PULSE 51; RESP 16; TEMP 97.6; O2SAT 97
[2025-04-16 09:00] VITALS: BP 127/69; PULSE 51; RESP 18; TEMP 98; O2SAT 97
--- NOTE | 2025-04-16 09:25 | DVHPN2 ---
Progress Note - Dictate Date Seen: Apr 16, 2025 Medical Necessity Reason Pt with a Central, PICC or Fol: No vital signs Vital Sign Date Time Temp Pulse Resp B/P (MAP) Pulse Ox O2 Delivery O2 Flow Rate FiO2 04/16/25 01:00 97.6 51 16 117/68 (84) 97 97.6 04/15/25 20:00 Room Air* 0 21 Total Intake and Output 04/15/25 04/15/25 04/16/25 15:00 23:00 07:00 Intake Total 50 ml 1120 ml 0 ml Output Total 400 ml 940 ml Balance 50 ml 720 ml -940 ml medications Current Medications Medications Dose Ordered Sig/Stefan Route Start Time Stop Time Status Last Admin Dose Admin Ondansetron HCl 4 mg Q4HP PRN IV 04/09/25 04:30 04/09/25 21:42 4 MG Nitroglycerin 0.4 mg Q5MINP PRN SL 04/09/25 04:30 Morphine Sulfate 2 mg Q30M PRN IV 04/09/25 04:30 04/09/25 21:41 2 MG Folic Acid 1 mg DAILY PO 04/09/25 10:00 04/15/25 08:47 1 MG Thiamine HCl 100 mg DAILY PO 04/09/25 10:00 04/15/25 08:47 100 MG Ceftriaxone Sodium 50 ml @ 100 mls/hr DAILY@09 IV 04/10/25 09:00 04/15/25 08:48 100 MLS/HR Dextrose 1,000 ml @ 100 mls/hr Q10H IV 04/09/25 11:15 04/16/25 03:15 100 MLS/HR Acetaminophen/ Hydrocodone Bitart 1 tab Q6HPRN PRN PO 04/10/25 20:15 04/10/25 21:40 1 TAB Multivitamins/ Minerals 1 tab DAILY PO 04/12/25 10:00 04/15/25 08:47 1 TAB Enteral Nutritional Formula 240 ml BIDWM PO 04/15/25 18:00 04/15/25 18:00 240 ML laboratory and microbiology Laboratory Tests 04/15/25 05:37 04/10/25 06:24 Test 04/15/25 05:37 Range/Units Serum Glucose 129 H 74-106 mg/dL Assessment/Plan cleared form urology standpoint no renal mass on MRI Problems(with codes): (1) Acute renal injury (2) Hypokalemia (3) Acute metabolic encephalopathy (4) Severe dehydration (5) Generalized weakness Dietary Evaluation Review Comments: 1) Increase Nepro bid to tid 2) Continue vitamin supplementation 3) Encourage optimal PO intake 4) Follow-up with cardiology and nephrology 5) Follow-up with social work r/t ETOH abuse 6) Continue to monitor I&O, labs, and skin integrity Expected Outcomes/Goals: 1) appetite and labs to improve 2) f/u in 3-5 days Plan discussed with: Other Total Time (mins): 14 MICHEAL JACKSON NP Apr 16, 2025 09:25
[2025-04-16 10:31] LABS: Hepatitis A Ab IgM Negative; Hepatitis B Core IgM Negative (Negative); Hepatitis B Surface Antigen Negative (Negative); Hepatitis C Antibody Negative (Negative)
[2025-04-16] MEDS: GADOTERATE MEG 10 MMOL/20ml INJ (0.5MMOL/ml) IV ONE ×2 (10:31→10:32)
[2025-04-16] MEDS: EZ PAQUE SUSP 12OZ BTL ONE (10:31)
[2025-04-16 13:00] VITALS: BP 115/81; PULSE 68; RESP 16; TEMP 97.8; O2SAT 98
--- NOTE | 2025-04-16 16:10 | DVHPN2 ---
Subjective Patient is alert oriented only to person. Still confused. Unknown baseline. Reviewed: H&P Changes from previous H/P or p: No Changes General: Per HPI Objective Vitals Vital Signs Date Time Temp Pulse Resp B/P (MAP) Pulse Ox O2 Delivery O2 Flow Rate FiO2 04/16/25 13:00 97.8 68 16 115/81 (92) 98 97.8 04/16/25 08:15 Room Air* 0 21 Intake/Output Intake and Output 04/16/25 07:00 Intake Total 1170 ml Output Total 1340 ml Balance -170 ml Intake Oral 120 ml IV Total 1050 ml Output Urine Total 1340 ml # Bowel Movements 2 Exam GEN: Healthy appearing, well-developed, NAD. HEENT: NC/AT; MMM. CV: RRR, no m/r/g. LUNGS: Distant breath sounds with faint end expiratory wheeze. ABD: Soft, NT/ND, NBS, no masses or organomegaly. EXT: skin Warm, well perfused. no rashes. No clubbing, cyanosis, or edema. NEURO: Ambulating with no limitations. No focal deficits. Medications Current Medications Medications Dose Ordered Sig/Stefan Route Start Time Stop Time Status Last Admin Dose Admin Ondansetron HCl 4 mg Q4HP PRN IV 04/09/25 04:30 04/09/25 21:42 4 MG Nitroglycerin 0.4 mg Q5MINP PRN SL 04/09/25 04:30 Morphine Sulfate 2 mg Q30M PRN IV 04/09/25 04:30 04/09/25 21:41 2 MG Folic Acid 1 mg DAILY PO 04/09/25 10:00 04/16/25 10:31 1 MG Thiamine HCl 100 mg DAILY PO 04/09/25 10:00 04/16/25 10:31 100 MG Ceftriaxone Sodium 50 ml @ 100 mls/hr DAILY@09 IV 04/10/25 09:00 04/16/25 10:38 100 MLS/HR Dextrose 1,000 ml @ 100 mls/hr Q10H IV 04/09/25 11:15 04/16/25 14:40 100 MLS/HR Acetaminophen/ Hydrocodone Bitart 1 tab Q6HPRN PRN PO 04/10/25 20:15 04/10/25 21:40 1 TAB Multivitamins/ Minerals 1 tab DAILY PO 04/12/25 10:00 04/16/25 10:30 1 TAB Enteral Nutritional Formula 240 ml BIDWM PO 04/15/25 18:00 04/16/25 08:00 240 ML Laboratory Results Laboratory Tests 04/10/25 06:24 04/15/25 05:37 Urinalysis Test 04/10/25 07:35 Urine Color Light-yellow (Yellow) Urine Clarity Turbid (Clear) H Urine pH 5.5 (5.0-9.0) Urine Specific [place] 1.016 (1.001-1.035) Urine Protein Negative (Negative) Urine Ketones Negative (Negative) Urine Blood Trace /uL (Negative) H Urine Nitrite Negative (Negative) Urine Bilirubin Negative (Negative) Urine Urobilinogen Normal mg/dL (Negative) Urine Leukocyte Esterase 3+ /uL (Negative) Urine RBC 2 /hpf (0 - 3) Urine WBC Clumps Present /hpf (None Seen) Urine Microscopic WBC 93 /HPF (0-3) H Urine Squamous Epithelial Cells None seen /hpf (<5) Urine Bacteria Few /hpf (None Seen) H Urine Creatinine 96.56 mg/dL (30.0-125.0) Urine Sodium 59 mmol/L (40-220) Urine Glucose Normal mg/dL (Normal) Microbiology Microbiology Date/Time Source Procedure Growth Status 04/09/25 02:37 Blood Blood Culture - Final NO GROWTH AFTER 5 DAYS OF INCUBATION. Complete Assessment/Plan Assessment/Plan 04/09 patient is A&O x1 only. Lives alone. with toxic metabolic encephalopathy. She has history of AFib, prediabetes, alcohol abuse. She was alone at home down for unknown time. No urine at this point. We will continue ceftriaxone. We will get more lab workup found hypernatremic and MARK on? CKD. We will do ammonia, TSH. We will change fluids to D5W at 100 cc/hour. Give 1 time thiamine IV injection. Creatinine is not improving significantly we will get FeNA and kidney ultrasound. Likely a CKD and probably needs Nephrology.. Differential includes hypernatremia,? Alcohol related/withdrawal, MARK uremia, infection? UTI no urine yet, dehydration, dementia. 04/10- patient A&O times 2-3, improving. She lives alone and confirms it. He has a who not in contact with him. He is denying alcohol and smoking. Hypernatremia improving we will continue IV fluids. MARK appears to be resolved and now likely baseline CKD level, renal ultrasound showing possible renal mass. We will consult Nephrology. TSH and ammonia are unconcerning. Gap was found yesterday and workup shows mixed with beta hydroxy butyrate positive and lactic acidosis elevated. We will repeat these labs and continue IV fluids D5W 100 cc/hour. Continue IV antibiotics for UTI ceftriaxone. 04/11 patient is A&O times 1-2 again today. Patient has waxing waning orientation in mentation. We will look for reversible causes. Labs are stabilizing. Lactic acidosis resolved. It is not clear if patient has clear intact biliary to make decisions and decision-making capacity. Patient likely needs to be jail care in long term or similar. We will follow up with social workers. Hypernatremia 155 still high nephrology on board continuing D5W 100 cc/hour. Urology consulted for renal mass right side. MRI renal needed. PT consulted. Contacted Elyse listed as emergency contact for patient, she reports that bryan Hester is the only local relative in the area who lives in [place], [place] phone [phone] we will now be primary contact. agrees that patient needs ongoing care to ensure patient is getting adequate nutrition and daily care. We will consult social for placement as patient is not able to make decisions for himself at this moment. We will get bladder scan to rule out urinary obstruction 04/12 patient remains to be A&O x1 not oriented to place or time. He is still very slow in thought process. Although he is pleasant and compliant with visit. Patient's hypernatremia is resolving nephrology following. We will get right renal mass MRI renal protocol. Pending PT eval we will order PT eval again. 04/13- patient discharged pending facility for PT rehab. Patient improving participating PT. See DC summary for complete recap DC summary: 04/13 - "AOx1 again. hypernatremia has resolved. today there is MRI with contrast renal protocol shows no evidence of renal mass. communicated with bryan Hester who is in agreement with placement to long term for ongoing care given patient's advanced dementia and inability to make decisions. MRI does find right lower lobe nodule 2.4 cm which we will need outpatient follow up. There was unintentional needlestick care worker, we will order needle stick protocol HIV antibody, hepatitis antibody, trep antibody." 04/14- : No significant changes over the weekend. Patient continues participating with PT . 04/16 - patient in good spirits today, remains A&O x1. Working with PT. Per social security assessor notes patient to be placed at [facility] for PT rehab for 4 weeks. Pending bed placement. UTI treatment with IV antibiotic has completed with ceftriaxone. Hyponatremia has resolved we will decrease fluids. Continue thiamine and multivitamins. Diagnosis: Acute toxic metabolic encephalopathy due to below Hypernatremia History of alcohol abuse,? Alcohol withdrawal MARK on CKD? MARK due to VMN Thiamine deficiency? Wernicke's encephalopathy? Dehydration Infection UTI likely Anion gap metabolic acidosis Starvation ketoacidosis Lactic acidosis AFib Prediabetes Plan: - nephrology consult - signed off - D5W 40 cc/hour - IV antibiotics ceftriaxone - stopped - Social consulted for placement - appreciate help -aspiration precautions -sitter one-to-one -social consult for home safety eval - not needed further. patient need PT rehab. - continue follow up with lactic acidosis resolved, no further lactic draws - diet renal - MRI renal mass right, renal protocol - no renal mass. ruled out. - PT eval add ensure Renal diet DVT prophylaxis-Lovenox GI prophylaxis PPI Med surge Full code Plan discussed with: Patient Date of Service: Apr 16, 2025 Billing Provider: EFREN PELAYO MD Common Visit Codes: [id number] INP/OBS CARE(HIGH) EFREN PELAYO MD Apr 16, 2025 16:10
[2025-04-16] MEDS: D5W 5% 1,000 ML IV SCH (16:30)
[2025-04-16 17:00] VITALS: BP 117/59; PULSE 64; RESP 16; TEMP 98; O2SAT 98
[2025-04-16 21:00] VITALS: BP 107/58; PULSE 65; RESP 15; TEMP 97.9; O2SAT 98
[2025-04-17 01:00] VITALS: BP 123/60; PULSE 73; RESP 15; TEMP 97.5; O2SAT 96
[2025-04-17 05:00] VITALS: BP 119/81; PULSE 68; RESP 15; TEMP 98; O2SAT 97
[2025-04-17 08:00] VITALS: PULSE 78; RESP 20; O2SAT 97
[2025-04-17 09:28] VITALS: BP 92/62; PULSE 67; RESP 20; TEMP 97.9; O2SAT 100
--- NOTE | 2025-04-17 11:51 | DVHPN2 ---
Subjective Patient is alert oriented only to person. Still confused. at baseline. Reviewed: H&P Changes from previous H/P or p: No Changes General: Per HPI Objective Vitals Vital Signs Date Time Temp Pulse Resp B/P (MAP) Pulse Ox O2 Delivery O2 Flow Rate FiO2 04/17/25 09:28 97.9 67 20 92/62 (72) 100 97.9 04/16/25 20:00 Room Air* 0 21 Intake/Output Intake and Output 04/17/25 07:00 Intake Total 1460 ml Output Total 400 ml Balance 1060 ml Intake Oral 260 ml IV Total 1200 ml Output Urine Total 400 ml Exam GEN: Healthy appearing, well-developed, NAD. HEENT: NC/AT; MMM. CV: RRR, no m/r/g. LUNGS: Distant breath sounds with faint end expiratory wheeze. ABD: Soft, NT/ND, NBS, no masses or organomegaly. EXT: skin Warm, well perfused. no rashes. No clubbing, cyanosis, or edema. NEURO: Ambulating with no limitations. No focal deficits. Medications Current Medications Medications Dose Ordered Sig/Stefan Route Start Time Stop Time Status Last Admin Dose Admin Ondansetron HCl 4 mg Q4HP PRN IV 04/09/25 04:30 04/09/25 21:42 4 MG Nitroglycerin 0.4 mg Q5MINP PRN SL 04/09/25 04:30 Morphine Sulfate 2 mg Q30M PRN IV 04/09/25 04:30 04/09/25 21:41 2 MG Folic Acid 1 mg DAILY PO 04/09/25 10:00 04/17/25 09:55 1 MG Thiamine HCl 100 mg DAILY PO 04/09/25 10:00 04/17/25 09:55 100 MG Acetaminophen/ Hydrocodone Bitart 1 tab Q6HPRN PRN PO 04/10/25 20:15 04/10/25 21:40 1 TAB Multivitamins/ Minerals 1 tab DAILY PO 04/12/25 10:00 04/17/25 09:55 1 TAB Enteral Nutritional Formula 240 ml BIDWM PO 04/15/25 18:00 04/17/25 08:00 240 ML Dextrose 1,000 ml @ 40 mls/hr Q24H IV 04/16/25 16:15 04/16/25 16:30 40 MLS/HR Laboratory Results Laboratory Tests 04/10/25 06:24 04/15/25 05:37 Urinalysis Test 04/10/25 07:35 Urine Color Light-yellow (Yellow) Urine Clarity Turbid (Clear) H Urine pH 5.5 (5.0-9.0) Urine Specific [place] 1.016 (1.001-1.035) Urine Protein Negative (Negative) Urine Ketones Negative (Negative) Urine Blood Trace /uL (Negative) H Urine Nitrite Negative (Negative) Urine Bilirubin Negative (Negative) Urine Urobilinogen Normal mg/dL (Negative) Urine Leukocyte Esterase 3+ /uL (Negative) Urine RBC 2 /hpf (0 - 3) Urine WBC Clumps Present /hpf (None Seen) Urine Microscopic WBC 93 /HPF (0-3) H Urine Squamous Epithelial Cells None seen /hpf (<5) Urine Bacteria Few /hpf (None Seen) H Urine Creatinine 96.56 mg/dL (30.0-125.0) Urine Sodium 59 mmol/L (40-220) Urine Glucose Normal mg/dL (Normal) Microbiology Microbiology Date/Time Source Procedure Growth Status 04/09/25 02:37 Blood Blood Culture - Final NO GROWTH AFTER 5 DAYS OF INCUBATION. Complete Labs and/or images reviewed: Labs reviewed by me, Image(s) reviewed by me Assessment/Plan Assessment/Plan 04/09 patient is A&O x1 only. Lives alone. with toxic metabolic encephalopathy. She has history of AFib, prediabetes, alcohol abuse. She was alone at home down for unknown time. No urine at this point. We will continue ceftriaxone. We will get more lab workup found hypernatremic and MARK on? CKD. We will do ammonia, TSH. We will change fluids to D5W at 100 cc/hour. Give 1 time thiamine IV injection. Creatinine is not improving significantly we will get FeNA and kidney ultrasound. Likely a CKD and probably needs Nephrology.. Differential includes hypernatremia,? Alcohol related/withdrawal, MARK uremia, infection? UTI no urine yet, dehydration, dementia. 04/10- patient A&O times 2-3, improving. She lives alone and confirms it. He has a who not in contact with him. He is denying alcohol and smoking. Hypernatremia improving we will continue IV fluids. MARK appears to be resolved and now likely baseline CKD level, renal ultrasound showing possible renal mass. We will consult Nephrology. TSH and ammonia are unconcerning. Gap was found yesterday and workup shows mixed with beta hydroxy butyrate positive and lactic acidosis elevated. We will repeat these labs and continue IV fluids D5W 100 cc/hour. Continue IV antibiotics for UTI ceftriaxone. 04/11 patient is A&O times 1-2 again today. Patient has waxing waning orientation in mentation. We will look for reversible causes. Labs are stabilizing. Lactic acidosis resolved. It is not clear if patient has clear intact biliary to make decisions and decision-making capacity. Patient likely needs to be penitentiary care in long-term or similar. We will follow up with social workers. Hypernatremia 155 still high nephrology on board continuing D5W 100 cc/hour. Urology consulted for renal mass right side. MRI renal needed. PT consulted. Contacted Elyse listed as emergency contact for patient, she reports that bryan Hester is the only local relative in the area who lives in [place], [place] phone [phone] we will now be primary contact. agrees that patient needs ongoing care to ensure patient is getting adequate nutrition and daily care. We will consult social for placement as patient is not able to make decisions for himself at this moment. We will get bladder scan to rule out urinary obstruction 04/12 patient remains to be A&O x1 not oriented to place or time. He is still very slow in thought process. Although he is pleasant and compliant with visit. Patient's hypernatremia is resolving nephrology following. We will get right renal mass MRI renal protocol. Pending PT eval we will order PT eval again. 04/13- patient discharged pending facility for PT rehab. Patient improving participating PT. See DC summary for complete recap DC summary: 04/13 - "AOx1 again. hypernatremia has resolved. today there is MRI with contrast renal protocol shows no evidence of renal mass. communicated with bryan Hester who is in agreement with placement to long-term for ongoing care given patient's advanced dementia and inability to make decisions. MRI does find right lower lobe nodule 2.4 cm which we will need outpatient follow up. There was unintentional needlestick care worker, we will order needle stick protocol HIV antibody, hepatitis antibody, trep antibody." 04/14- : No significant changes over the weekend. Patient continues participating with PT . 04/16 - patient in good spirits today, remains A&O x1. Working with PT. Per social staff worker notes patient to be placed at [facility] for PT rehab for 4 weeks. Pending bed placement. UTI treatment with IV antibiotic has completed with ceftriaxone. Hyponatremia has resolved we will decrease fluids. Continue thiamine and multivitamins. 04/17 A&O x1 starting to recognize provider slowly. He is in agreement with PT rehab. Pending bed placement to go to [facility] for PT rehab for 4 weeks. We stopped antibiotics. No further needed. Continue discharge planning to rehab facility, pending bed of transfer process initiation. Diagnosis: Acute toxic metabolic encephalopathy due to below Hypernatremia History of alcohol abuse,? Alcohol withdrawal MARK on CKD? MARK due to VMN Thiamine deficiency? Wernicke's encephalopathy? Dehydration Infection UTI likely Anion gap metabolic acidosis Starvation ketoacidosis Lactic acidosis AFib Prediabetes Plan: - nephrology consult - signed off - D5W 40 cc/hour - IV antibiotics ceftriaxone - stopped - Social consulted for placement - appreciate help -aspiration precautions -sitter one-to-one -social consult for home safety eval - not needed further. patient need PT rehab. - continue follow up with lactic acidosis resolved, no further lactic draws - diet renal - MRI renal mass right, renal protocol - no renal mass. ruled out. - PT eval add ensure Renal diet DVT prophylaxis-Lovenox GI prophylaxis PPI Med surge Full code Plan discussed with: Patient My Orders Orders - EFREN PELAYO MD Procedure Category Date Status Time Discharge DISCHARGE 04/16/25 Transmitted 14:35 D5w 5% (Dextrose 5%) PHA 04/16/25 In Process 16:15 Date of Service: Apr 17, 2025 Billing Provider: EFREN PELAYO MD Common Visit Codes: [id number] INP/OBS CARE(MOD) EFREN PELAYO MD Apr 17, 2025 11:51
[2025-04-17 13:30] VITALS: BP 105/59; PULSE 76; RESP 20; TEMP 97.5; O2SAT 100
[2025-04-17 16:53] VITALS: BP 100/64; PULSE 66; RESP 20; TEMP 97.6; O2SAT 96
== END 2025-04-17 19:30 | DRG 91 ==
LOC: ER 01:33 → EDUNIT# 01:33 → EDBD 01:33 → OVERFLOW 04:18 → TELE-CENTR 04-10 03:25 → CENTRAL 04-12 03:03
PROVIDERS: ADMIT Student in an Organized Health Care Education/Training Program; ATTEND Student in an Organized Health Care Education/Training Program
DX: G92.8 Other toxic encephalopathy (principal); N17.0 Acute kidney failure with tubular necrosis; F10.139 Alcohol abuse with withdrawal, unspecified; N39.0 Urinary tract infection, site not specified; E51.2 Wernicke's encephalopathy; E51.9 Thiamine deficiency, unspecified; E87.0 Hyperosmolality and hypernatremia; E87.29 Other acidosis; E86.0 Dehydration; E87.6 Hypokalemia; F03.90 Unspecified dementia, unspecified severity, without behavioral disturbance, psychotic disturbance, mood disturbance, and anxiety; I48.91 Unspecified atrial fibrillation; N18.31 Chronic kidney disease, stage 3a; N28.89 Other specified disorders of kidney and ureter; R62.7 Adult failure to thrive; Y90.9 Presence of alcohol in blood, level not specified; R73.03 Prediabetes; Z79.899 Other long term (current) drug therapy
CPT/HCPCS: 36415; 36600; 70450; 71045; 74181; 74183; 76775; 80048; 80053; 80074; 80307; 80320; 80329; 81001; 82010; 82140; 82550; 82570; 82607; 82805; 82962; 83605; 83735; 84100; 84295; 84300; 84443; 85025; 85610; 86703; 86780; 87040; 93005; 96365; 96375; 97110; 97116; 97163; 97530; 99291; G0378; J2003; J2405; J3480